=== PATIENT | female | born 1935 | race Caucasian/White ===

== ENCOUNTER 2016-10-18 10:36 | Emergency (ER) | payer OTHER ==
[2016-10-18 11:03] VITALS: TEMP 97.8; BMI 22.3
[2016-10-18] MEDS ORDERED: SODIUM CHLORIDE 500 ML IV STA (16:05)
--- NOTE | 2016-10-18 16:05 | PDOC ---
History of Present Illness - General History Source: Patient Exam Limitations: No Limitations - History of Present Illness Initial Comments: 10/18/16 17:02 The patient is a 80 year old female, with a significant past medical history of HTN, dementia, hypercholesterolemia, rheumatoid arthritis who presents to the emergency department with abdominal pain and diarrhea (nonbloody) for about 1 day. Patient notes a decreased appetite since the onset of her symptoms. The patient denies any black stool and notes the color is a normal. She denies any recent sick contacts. No associated f/c, n/v. Pt does endorse urinary frequency which has been going on for a while. She denies chest pain and shortness of breath. She denies fever, chills, headache and dizziness. She denies nausea, vomit, and constipation. She denies urgency and hematuria. Allergies: NKDA Past surgical history: Hysterectomy (4 years ago.) Social history: Nonsmoker. PCP: <Garrett Blanco - Last Filed: 10/18/16 17:02> <Miki Nickerson - Last Filed: 10/21/16 09:13> - General Chief Complaint: Pain, Acute Stated Complaint: ABD PAIN Time Seen by Provider: 10/18/16 16:05 Past History <Garrett Blanco - Last Filed: 10/18/16 17:02> - Past Medical History Dementia: Yes HTN: Yes Hypercholesterolemia: Yes - Surgical History Neurologic Surgery: Yes (BRAIN SURGERY) - Psycho/Social/Smoking Cessation Hx Anxiety: No Suicidal Ideation: No Smoking History: Never smoked Have you smoked in the past 12 months: No Number of Cigarettes Smoked Daily: 0 Hx Alcohol Use: No Drug/Substance Use Hx: No Substance Use Type: None <Miki Nickerson - Last Filed: 10/21/16 09:13> - Past Medical History Allergies/Adverse Reactions: Allergies Allergy/AdvReac Type Severity Reaction Status Date / Time No Known Drug Allergies Allergy Verified 10/18/16 10:59 shellfish derived AdvReac Mild Itching Verified 10/18/16 10:59 Home Medications: Ambulatory Orders Cilostazol 50 mg PO DAILY 01/04/16 Donepezil HCl 10 mg PO DAILY 01/04/16 Hydrochlorothiazide [Hctz -] 12.5 mg PO DAILY 01/04/16 Timolol 0.5% [Timoptic] 1 drop OU BID 02/05/16 Brimonidine Tartrate [Alphagan P 0.1% -] 1 drop TID 06/20/16 Folic Acid 1 mg PO DAILY 06/20/16 Pravastatin Sodium 10 mg PO DAILY 06/20/16 Escitalopram Oxalate [Lexapro -] 5 mg PO DAILY 10/18/16 Levofloxacin [Levaquin -] 500 mg PO DAILY #7 tablet 10/18/16 Metronidazole [Flagyl] 500 mg PO BID #14 tablet 10/18/16 Naproxen [Naprosyn -] 500 mg PO BID #20 tablet 10/18/16 Review of Systems - Review of Systems Able to Perform ROS?: Yes Comments:: 10/18/16 17:02 May be limited due to dementia CONSTITUTIONAL: No reported: Fever, Chills, Diaphoresis, Generalized Weakness, Malaise, Loss of Appetite HEENT: No reported: Rhinorrhea, Nasal Congestion, Throat Pain, Throat Swelling, Difficulty Swallowing, Mouth Swelling, Ear Pain, Eye Pain, Visual Changes CARDIOVASCULAR: No reported: Chest Pain, Syncope, Palpitations, Irregular Heart Rate, Lightheadedness, Peripheral Edema RESPIRATORY: No reported: Cough, Shortness of Breath, SOB with Exertion, Orthopnea, Wheezing , Stridor, Hemoptysis GASTROINTESTINAL: Reported: abdominal pain, diarrhea. No reported: Constipation, Melena, Hematochezia GENITOURINARY: No reported: Dysuria, Frequency, Urgency, Hesitancy, Flank Pain, Genital Pain MUSCULOSKELETAL: No reported: Myalgia, Arthralgia, Joint Swelling, Back pain, Neck Pain SKIN: No reported: Rash, Itching, Pallor HEMEATOLOGIC/IMMUNOLOGIC: No reported: Easy Bleeding, Easy Bruising, Lymphadenopathy, Frequent infections ENDOCRINE: No reported: Unexplained Weight Gain, Unexplained Weight Loss, Heat Intolerance , Cold Intolerance NEUROLOGIC: No reported: Headache, Focal Weakness, Paresthesias, Vertigo, Lightheadedness, Unsteady Gait, Seizure, Mental Status Changes, Incontinence PSYCHIATRIC: No reported: Anxiety, Depression <Garrett Blanco - Last Filed: 10/18/16 17:02> *Physical Exam - Vital Signs Last Vital Signs Temp Pulse Resp BP Pulse Ox 97.8 F 64 16 117/69 99 10/18/16 11:00 10/18/16 11:00 10/18/16 11:00 10/18/16 11:00 10/18/16 11:00 - Physical Exam Comments: 10/18/16 17:02 GENERAL: The patient is awake, alert, Nontoxic - in no acute distress. HEAD: Normocephalic, atraumatic. EYES: extraocular movements intact, sclera anicteric, conjunctiva clear. ENT: Normal voice, Moist mucous membranes. NECK: Normal range of motion, supple LUNGS: Breath sounds equal, clear to auscultation bilaterally. No wheezes, no rhonchi, no rales. HEART: Regular rate and rhythm, without murmur, rub or gallop. ABDOMEN: Diffuse tenderness to palpation. Hyperactive bowel sounds. Soft. No guarding, no rebound.No CVA tenderness EXTREMITIES: Normal range of motion, no edema. No clubbing or cyanosis. No cords , erythema, or tenderness. NEUROLOGICAL: No facial asymmetry, Normal speech. moving all 4 extremities sontaneously and symmetrically PSYCH: Normal mood, normal affect. SKIN: Warm, Dry, normal turgor. <Garrett Blanco - Last Filed: 10/18/16 17:02> - Vital Signs Last Vital Signs Temp Pulse Resp BP Pulse Ox 97.8 F 64 16 117/69 99 10/18/16 11:00 10/18/16 11:00 10/18/16 11:00 10/18/16 11:00 10/18/16 11:00 <Miki Nickerson - Last Filed: 10/21/16 09:13> Heart Score/ECG Review - ECG Impressions Comment:: 10/18/16 21:21 Twelve-lead EKG was performed and reviewed by me. There is normal sinus rhythm with a rate of 55 The intervals are normal. There is abnormal R wave progression There are no ST or T wave abnormalities. Impression: sinus bradycardia <Miki Nickerson - Last Filed: 10/21/16 09:13> ED Treatment Course - LABORATORY CBC & Chemistry Diagram: 10/18/16 17:10 10/18/16 17:10 <Miki Nickerson - Last Filed: 10/21/16 09:13> Medical Decision Making - Medical Decision Making 10/18/16 16:34 80y F hx of dementia presenting with lower abdominal pain and multiple episodes of nb diarrhea w/o melena, bpr, f/c, n/v, on exam the pt has mild abdominal tenderness with active bowel sounds will obtain labs to r/o metabolic dernagement ct abodomen to r/o pathology gerard lreassess 10/18/16 21:43 pt signed out to dr. aden to fu with ct and reassess the patient A portion of this note was documented by scribe services under my direction. I have reviewed the details of the note, within reason, and agree with the documentation with the following case summary and management plan written by me <Miki Nickerson - Last Filed: 10/21/16 09:13> *DC/Admit/Observation/Transfer - Attestations Scribe Attestion: 10/18/16 17:02 Documentation prepared by Garrett Blanco, acting as medical assistant dermatology for Miki Nickerson MD. <Garrett Blanco - Last Filed: 10/18/16 17:02> <Miki Nickerson - Last Filed: 10/21/16 09:13> Diagnosis at time of Disposition: Abdominal pain, Colitis - Discharge Dispostion Disposition: HOME Condition at time of disposition: Stable - Prescriptions Prescriptions: Metronidazole [Flagyl] 500 mg PO BID #14 tablet Levofloxacin [Levaquin -] 500 mg PO DAILY #7 tablet Naproxen [Naprosyn -] 500 mg PO BID #20 tablet - Referrals Referrals: Mara Louise MD [Primary Care Provider] - - Patient Instructions Printed Discharge Instructions: DI for Colitis Print Language: CAMEROONIAN
[2016-10-18] MEDS ORDERED: morphine CARPU-JECT 2 MG/1 ML DISP.SYRIN IVPUSH ONE (16:36)
[2016-10-18] MEDS ORDERED: morphine CARPU-JECT 2 MG/1 ML DISP.SYRIN ONE (17:19)
[2016-10-18 17:23] LABS: BASOPHIL 0.8 % (0-2.0); EOSINOPHIL 2.7 % (0-4.5); MCH 29.7 pg (25.7-33.7); MCHC 31.9 g/dl (32.0-36.0); MEAN CELL VOLUME 93.2 fl (80-96); MEAN PLT VOLUME 9.1 fl (7.5-11.1); PLATELET COUNT 260 K/MM3 (134-434); WHITE BLOOD COUNT 5.2 K/mm3 (4.0-10.0)
[2016-10-18 17:56] LABS: ALBUMIN 3.8 g/dl (3.4-5.0); ALK PHOS 102 U/L (45-117); ANION GAP 7 (8-16); BILIRUBIN,TOTAL 0.7 mg/dL (0.2-1.0); CALCIUM 9.1 mg/dL (8.5-10.1); CO2 30 mmol/L (21-32); CREATININE 0.6 mg/dL (0.55-1.02); GLUCOSE,RANDOM 83 mg/dL (74-106); MAGNESIUM 2.1 mg/dL (1.8-2.4); SGOT/AST 31 U/L (15-37); SGPT/ALT 26 U/L (12-78); TOT PROT 7.7 g/dl (6.4-8.2)
[2016-10-18 18:45] VITALS: BP 146/70; PULSE 63
[2016-10-18] MEDS ORDERED: metroNIDAZOLE 250 MG TABLET PO ONE (22:51)
[2016-10-18] MEDS ORDERED: LEVOFLOXACIN 500 MG TABLET (FP) PO ONE (22:51)
--- NOTE | 2016-10-18 22:53 | PDOC ---
*Physical Exam - Vital Signs Last Vital Signs Temp Pulse Resp BP Pulse Ox 97.8 F 63 19 146/70 99 10/18/16 11:00 10/18/16 16:15 10/18/16 16:15 10/18/16 16:15 10/18/16 16:15 ED Treatment Course - LABORATORY CBC & Chemistry Diagram: 10/18/16 17:10 10/18/16 17:10 - ADDITIONAL ORDERS Additional order review: Laboratory Results 10/18/16 10/18/16 10/18/16 17:10 17:10 17:10 Sodium 139 Potassium 3.7 Chloride 102 Carbon Dioxide 30 Anion Gap 7 L BUN 9 D Creatinine 0.6 D Creat Clearance w eGFR > 60 Random Glucose 83 Lactic Acid 0.765 Calcium 9.1 Magnesium 2.1 Total Bilirubin 0.7 D AST 31 D ALT 26 D Alkaline Phosphatase 102 Total Protein 7.7 Albumin 3.8 Lipase 81 10/18/16 17:10 RBC 4.31 MCV 93.2 MCHC 31.9 L RDW 13.0 MPV 9.1 D Neutrophils % 65.0 Lymphocytes % 20.7 D Monocytes % 10.8 H Eosinophils % 2.7 Basophils % 0.8 - Medications Given in the ED: ED Medications Discontinued Medications Generic Name Dose Route Start Last Admin Trade Name Freq PRN Reason Stop Dose Admin Sodium Chloride 500 mls @ 500 mls/hr 10/18/16 16:05 10/18/16 17:20 Normal Saline - IV 10/18/16 17:04 500 mls/hr ASDIR STA Administration Morphine Sulfate 2 mg 10/18/16 16:36 10/18/16 17:20 Morphine Injection - IVPUSH 10/18/16 16:37 2 mg ONCE ONE Administration *DC/Admit/Observation/Transfer Diagnosis at time of Disposition: Abdominal pain, Colitis - Discharge Dispostion Disposition: HOME Condition at time of disposition: Stable Admit: No - Referrals Referrals: Mara Louise MD [Primary Care Provider] - - Patient Instructions Printed Discharge Instructions: DI for Colitis Print Language: PALESTINIAN - Post Discharge Activity
[2016-10-18] MEDS ORDERED: metroNIDAZOLE 250 MG TABLET ONE (22:55)
[2016-10-18] MEDS ORDERED: LEVOFLOXACIN 500 MG TABLET (FP) ONE (22:55)
--- NOTE | 2016-10-20 15:15 | EKG ---
Test Reason : Blood Pressure : / mmHG Vent. Rate : 055 BPM Atrial Rate : 055 BPM P-R Int : 186 ms QRS Dur : 086 ms QT Int : 416 ms P-R-T Axes : 022 -04 033 degrees QTc Int : 397 ms SINUS BRADYCARDIA POSSIBLE ANTERIOR INFARCT , AGE UNDETERMINED ABNORMAL ECG WHEN COMPARED WITH ECG OF 20-JUN-2016 21:35, NO SIGNIFICANT CHANGE WAS FOUND Confirmed by BROOKE JEAN MD ([id number]) on 10/20/2016 3:14:51 PM Referred By: Confirmed By:BROOKE JEAN MD
== END 2016-10-18 23:08 | disposition home or self-care (01) ==
LOC: JER 10:36
PROC: 3E033NZ Introduction of Analgesics, Hypnotics, Sedatives into Peripheral Vein, Percutaneous Approach (ICD-10-PCS; principal; 2016-10-18)
PROC: 3E0337Z Introduction of Electrolytic and Water Balance Substance into Peripheral Vein, Percutaneous Approach (ICD-10-PCS; 2016-10-18)
DX: K52.9 Noninfective gastroenteritis and colitis, unspecified (principal); R10.9 Unspecified abdominal pain; I10 Essential (primary) hypertension; F03.90 Unspecified dementia, unspecified severity, without behavioral disturbance, psychotic disturbance, mood disturbance, and anxiety; E78.00 Pure hypercholesterolemia, unspecified; M06.9 Rheumatoid arthritis, unspecified
CPT/HCPCS: 36415; 74177-TC; 80053; 83605; 83690; 83735; 85025; 93005; 93010; 96361; 96374; 99284-25; Q9967

== ENCOUNTER 2016-10-25 12:49 | Emergency (ER) | payer OTHER ==
[2016-10-25 13:03] VITALS: TEMP 98; BMI 22.8
--- NOTE | 2016-10-25 13:49 | PDOC ---
[id number] I have performed the following: I have examined & evaluated the patient, The case was reviewed & discussed with the resident, I agree w/resident's findings & plan - HPI HPI: 10/25/16 16:26 80y F hx of HTN, HLD, Dementia, Fibromyalgia presents with L sided sharp chest pain radiating up to her neck and arm x 3 days- pt states that certain movements make it worse especially turning her head to the left side - no assicated sob, yu, n/v, dipahoresis. on exam pt has diffuse reproducible tenderness to her L shoulder, left anterior chest. suspect msk pain - pt is not a great historian - will also r/o acs with trops and ekg, will ck cxr to r/ o acute pulm disesae labs reviewed - unremarkable trop x 1 neg ekg unchanged from prior cxr rotated but without acute disease will obtain another trop at 6pm. if neg will d/c to fu with PMD and caridology. pt given asa - Physicial Exam PE: 10/29/16 10:06 see above - Medical Decision Making 10/29/16 10:06 see above
[2016-10-25] MEDS ORDERED: ASPIRIN 81 MG CHEWABLE TABLETS PO ONE (13:54)
--- NOTE | 2016-10-25 13:57 | PDOC ---
History of Present Illness <Miki Nickerson - Last Filed: 10/25/16 15:40> - General History Source: Family (Daughter ) Exam Limitations: Dementia, Language Barrier - History of Present Illness Initial Comments: 10/25/16 14:12 Unable to obtain information due to patients clinical condition. All information taken from patients daughter Patient is a 80 year old female with a PMHx of HTN, HLD, Dementia, Fibromyalgia who was recently here on 10/18/16 for colitis and sent home with Wesley and Roddy who presents today to the ED complaining of constant diffuse "deep" chest pain that began three days ago radiating to the back. Patient's daughter reports patient is also having limited range of motion of the neck due to the pain. When asking the patient what alleviates the pain she states Tylenol does. She denies shortness of breath, palpitations, headache She denies dizziness, visual changes, loss of consciousness She denies nausea, vomiting, diarrhea, constipation She denies frequency, urgency, dysuria, hematuria PMHx:HTN, HLD, Dementia, Fibromyalgia PSHx: Brain Surgery MEDS: Refer to ambulatory Allergies: Shellfish Social: Denies alcohol, drugs, or smoking PCP: None <Snow Epstein - Last Filed: 10/25/16 18:39> - General Chief Complaint: Pain Stated Complaint: NECK PAIN Time Seen by Provider: 10/25/16 13:20 Past History <Miki Nickerson - Last Filed: 10/25/16 15:40> - Past Medical History Dementia: Yes HTN: Yes Hypercholesterolemia: Yes Other medical history: RA,FIROMYALGIA - Surgical History Neurologic Surgery: Yes (BRAIN SURGERY) - Psycho/Social/Smoking Cessation Hx Anxiety: No Suicidal Ideation: No Smoking History: Never smoked Have you smoked in the past 12 months: No Number of Cigarettes Smoked Daily: 0 Information on smoking cessation initiated: No Hx Alcohol Use: No Drug/Substance Use Hx: No Substance Use Type: None <Snow Epstein - Last Filed: 10/25/16 18:39> - Past Medical History Allergies/Adverse Reactions: Allergies Allergy/AdvReac Type Severity Reaction Status Date / Time No Known Drug Allergies Allergy Verified 10/25/16 12:59 shellfish derived AdvReac Mild Itching Verified 10/25/16 12:59 Home Medications: Ambulatory Orders Cilostazol 50 mg PO BID 01/04/16 Donepezil HCl 10 mg PO DAILY 01/04/16 Hydrochlorothiazide [Hctz -] 12.5 mg PO DAILY 01/04/16 Timolol 0.5% [Timoptic] 1 drop OU BID 02/05/16 Brimonidine Tartrate [Alphagan P 0.1% -] 1 drop BID 06/20/16 Folic Acid 1 mg PO DAILY 06/20/16 Pravastatin Sodium 10 mg PO DAILY 06/20/16 Escitalopram Oxalate [Lexapro -] 5 mg PO DAILY 10/18/16 Levofloxacin [Levaquin -] 500 mg PO DAILY #7 tablet 10/18/16 Metronidazole [Flagyl] 500 mg PO BID #14 tablet 10/18/16 Naproxen [Naprosyn -] 500 mg PO BID #20 tablet 10/18/16 Gabapentin 300 mg PO HS 10/25/16 Methotrexate Sodium [Methotrexate] 20 mg PO WEEKLY 10/25/16 Review of Systems - Review of Systems Able to Perform ROS?: No Is the patient limited Mosotho proficient: Yes <Snow Epstein - Last Filed: 10/25/16 18:39> *Physical Exam - Vital Signs Last Vital Signs Temp Pulse Resp BP Pulse Ox 98.0 F 76 18 118/62 100 10/25/16 12:59 10/25/16 12:59 10/25/16 12:59 10/25/16 12:59 10/25/16 12:59 <Miki Nickerson - Last Filed: 10/25/16 15:40> - Vital Signs Last Vital Signs Temp Pulse Resp BP Pulse Ox 98.0 F 76 18 118/62 100 10/25/16 12:59 10/25/16 12:59 10/25/16 12:59 10/25/16 12:59 10/25/16 12:59 - Physical Exam General Appearance: Yes: Other HEENT: positive: EOMI, RONALDO, Normal Voice, Pharynx Normal. negative: Tonsillar Exudate, Tonsillar Erythema, Rhinorrhea, Sinus Tenderness, TM Bulging Neck: positive: Decreased range of motion, Tender lateral. negative: Carotid bruit Respiratory/Chest: positive: Chest Tender, Lungs Clear, Normal Breath Sounds. negative: Respiratory Distress, Accessory Muscle Use Cardiovascular: positive: Regular Rhythm, Regular Rate Gastrointestinal/Abdominal: positive: Normal Bowel Sounds, Soft. negative: Decreased BS, Guarding, Rebound Extremity: positive: Other (limited range of motion of left arm. ). negative: Delayed Capillary Refill, Pedal Edema, Swelling, Calf Tenderness, Inflammation Integumentary: positive: Normal Color, Dry, Warm Neurologic: positive: Alert, Normal Mood/Affect (apathetic ), Respond to painful stimul, Responsive. negative: Facial Droop, Numbness, Sensory Deficit <Snow Epstein - Last Filed: 10/25/16 18:39> Heart Score/ECG Review - ECG Impressions Comment:: 10/25/16 15:40 Twelve-lead EKG was performed and reviewed by me. There is normal sinus rhythm with a normal rate. Rate of 72 There is abnormal R wave progression There are no ST or T wave abnormalities. No significant changes when compared with EKG dated 10/18/2016 <Miki Nickerson - Last Filed: 10/25/16 15:40> ED Treatment Course - LABORATORY CBC & Chemistry Diagram: 10/25/16 14:20 10/25/16 14:20 - ADDITIONAL ORDERS Additional order review: Laboratory Results 10/25/16 14:20 Sodium 136 Potassium 4.6 D Chloride 100 Carbon Dioxide 31 Anion Gap 5 L BUN 10 Creatinine 0.7 Creat Clearance w eGFR > 60 Random Glucose 110 H D Calcium 9.4 Total Bilirubin 0.6 AST 29 ALT 19 D Alkaline Phosphatase 90 Creatine Kinase 111 Troponin I < 0.02 Total Protein 7.5 Albumin 3.6 10/25/16 14:20 RBC 4.05 MCV 92.9 MCHC 32.9 RDW 12.5 MPV 9.4 Neutrophils % 77.8 Lymphocytes % 13.1 D Monocytes % 8.0 Eosinophils % 0.4 D Basophils % 0.7 - RADIOLOGY Radiology Studies Ordered: Category Date Time Status CHEST X-RAY PORTABLE* [RAD] Stat Radiology 10/25/16 13:54 Taken - Medications Given in the ED: ED Medications Discontinued Medications Generic Name Dose Route Start Last Admin Trade Name Freq PRN Reason Stop Dose Admin Aspirin 162 mg 10/25/16 13:54 10/25/16 14:36 Asa - PO 10/25/16 13:55 162 mg ONCE ONE Administration <Miki Nickerson - Last Filed: 10/25/16 15:40> - LABORATORY CBC & Chemistry Diagram: 10/25/16 14:20 10/25/16 14:20 <Snow Epstein - Last Filed: 10/25/16 18:39> Medical Decision Making - Medical Decision Making 10/25/16 14:06 Patient is a 80 year old female with a PMHx of HTN, HLD, dementia, rheumatoid arthritis and Fibromyalgia who presented to the ED complaining of diffuse chest pain radiating to the left arm associated with neck pain for the last three days. Differential Diagnosis include but not limited to ACS, GERD, PE, Pneumonia, Acute Pericarditis, Injury or trauma. ED Course and Treatment: -CBC -CMP -Cardiac Profile which includes troponin -EKG -Chest X-ray 10/25/16 16:10 -Labs wnl -Troponin negative. Will repeat in 4 hours -Chest x-ray negative for acute pathology 10/25/16 18:36 -Second set of troponin negative -Patient was able to eat soup and drink some juice -Patient re-examined and complains of no pain or tenderness. Denies chest pain or shortness of breath -Patient may be discharged and advised to follow up with PCP <Snow Epstein - Last Filed: 10/25/16 18:39> *DC/Admit/Observation/Transfer <Miki Nickerson - Last Filed: 10/25/16 15:40> - Discharge Dispostion Admit: No <Snow Epstein - Last Filed: 10/25/16 18:39> Diagnosis at time of Disposition: Fibromyalgia affecting multiple sites - Discharge Dispostion Disposition: HOME Condition at time of disposition: Stable - Patient Instructions Additional Instructions: -May resume regular diet -If you experience any chest pain, shortness of breath , or fever >103, return to the ED -Please follow up with PCP within a week Print Language: CHADIAN
[2016-10-25] MEDS ORDERED: ASPIRIN 81 MG CHEWABLE TABLETS ONE (14:32)
[2016-10-25 14:36] LABS: BASOPHIL 0.7 % (0-2.0); EOSINOPHIL 0.4 % (0-4.5); MCH 30.6 pg (25.7-33.7); MCHC 32.9 g/dl (32.0-36.0); MEAN CELL VOLUME 92.9 fl (80-96); MEAN PLT VOLUME 9.4 fl (7.5-11.1); NEUTROPHILS 77.8 % (42.8-82.8); PLATELET COUNT 252 K/MM3 (134-434); RDW 12.5 % (11.6-15.6); WHITE BLOOD COUNT 7.2 K/mm3 (4.0-10.0)
[2016-10-25 14:55] LABS: ALBUMIN 3.6 g/dl (3.4-5.0); ANION GAP 5 (8-16); BILIRUBIN,TOTAL 0.6 mg/dL (0.2-1.0); CALCIUM 9.4 mg/dL (8.5-10.1); CO2 31 mmol/L (21-32); CREATININE 0.7 mg/dL (0.55-1.02); GLUCOSE,RANDOM 110 mg/dL (74-106); SGPT/ALT 19 U/L (12-78); TOT PROT 7.5 g/dl (6.4-8.2)
[2016-10-25 14:58] LABS: ALK PHOS 90 U/L (45-117)
[2016-10-25 15:03] LABS: SGOT/AST 29 U/L (15-37)
[2016-10-25 15:05] LABS: TROPONIN I < 0.02 ng/ml (0.00-0.05)
[2016-10-25] MEDS ORDERED: ACETAMINOPHEN 325 MG TABLET (FP) PO ONE (16:26)
[2016-10-25] MEDS ORDERED: ACETAMINOPHEN 325 MG TABLET (FP) ONE (17:09)
--- NOTE | 2016-10-25 18:20 | EKG ---
Test Reason : Blood Pressure : / mmHG Vent. Rate : 072 BPM Atrial Rate : 072 BPM P-R Int : 168 ms QRS Dur : 078 ms QT Int : 406 ms P-R-T Axes : 026 -10 023 degrees QTc Int : 444 ms NORMAL SINUS RHYTHM MINIMAL VOLTAGE CRITERIA FOR LVH, MAY BE NORMAL VARIANT ANTERIOR INFARCT (CITED ON OR BEFORE 18-OCT-2016) ABNORMAL ECG WHEN COMPARED WITH ECG OF 18-OCT-2016 16:49, NO SIGNIFICANT CHANGE WAS FOUND Confirmed by HAYDEN ARRIAGA MD ([id number]) on 10/25/2016 6:20:10 PM Referred By: Confirmed By:HAYDEN ARRIAGA MD
[2016-10-25 18:54] VITALS: BP 123/67; PULSE 96
== END 2016-10-25 18:55 | disposition home or self-care (01) ==
LOC: JER 12:49
DX: M79.7 Fibromyalgia (principal); I10 Essential (primary) hypertension; E78.00 Pure hypercholesterolemia, unspecified; F03.90 Unspecified dementia, unspecified severity, without behavioral disturbance, psychotic disturbance, mood disturbance, and anxiety
CPT/HCPCS: 36415; 71010-TC; 80053; 82550; 84484; 85025; 93005; 93010; 99281-25

== ENCOUNTER 2016-11-09 13:03 | Observation (INO) | payer OTHER ==
--- NOTE | 2016-11-09 14:12 | PDOC ---
History of Present Illness - General Chief Complaint: Lightheaded Stated Complaint: DIZZINESS Time Seen by Provider: 11/09/16 13:13 History Source: Patient, Family - History of Present Illness Initial Comments: 11/09/16 14:12 Ms. Ramirez is a 80 y/o female with a PMH of HTN, Dementia, and TIA, presenting to the ED today complaining of altered mental status and an unwitnessed fall. Daughter is giving the present history. According to her daughter, Ms. Ramirez was last known normal today at 10:30. At approximately 11:00, Ms. Ramirez called out for help after falling. She was found on the floor. She had no recollection of the incident and was diaphoretic. She had mild aphasia that quickly resolved. There were no other focal deficits at that time. She refused to eat this morning. Her last meal was last night around 18:00. Now, pt. is AAOx3 and her speech is coherent. She still has no recollection of the fall. Denies head, neck, back pain. Denies constitutional symptoms, chest pain, palpitations, SOB, N/V/D. tPA Exclusion Checklist 0-3hr - Relative Exclusion Criteria 0-3h Rapid improvement: Yes NIH Stroke Scale - Last Known Well Date/Time & Onset Date Last Known Well: 11/09/16 Time Last Known Well: 10:30 - Initial Evaluation Level of consciousness: Alert Ask patient the month and their age: Answers both correctly Ask patient to open & close eyes; make fist and let go: Obeys both correctly Best gaze (horizontal eye movement): Normal Visual field testing: No visual field loss Facial paresis (Show teeth/raise eyebrows/close eyes tight): Normal symmetrical movement Motor Function: Left Arm: Normal Motor Function: Right Arm: Normal (extends arm 90 (or 45) degrees for 10 seconds without drift Motor Function: Left Leg: Normal (extends leg 30 degrees for 5 seconds without drift) Motor Function: Right Leg: Normal (extends leg 30 degrees for 5 seconds without drift) Limb Ataxia: No ataxia Sensory(Use pinprick test arms,legs,trunk,face/side to side): Normal Best language (Describe picture, name items, read sentences): No Aphasia Dysarthria (read several words): Normal articulation Extinction and Inattention: No abnormality - Total Score NIH Stroke Scale Score: 0 Past History - Past Medical History Allergies/Adverse Reactions: Allergies Allergy/AdvReac Type Severity Reaction Status Date / Time No Known Drug Allergies Allergy Verified 10/25/16 12:59 shellfish derived AdvReac Mild Itching Verified 10/25/16 12:59 Home Medications: Ambulatory Orders Cilostazol 50 mg PO BID 01/04/16 Donepezil HCl 10 mg PO DAILY 01/04/16 Hydrochlorothiazide [Hctz -] 12.5 mg PO DAILY 01/04/16 Timolol 0.5% [Timoptic] 1 drop OU BID 02/05/16 Folic Acid 1 mg PO DAILY 06/20/16 Pravastatin Sodium 10 mg PO DAILY 06/20/16 Escitalopram Oxalate [Lexapro -] 5 mg PO DAILY 10/18/16 Gabapentin 300 mg PO HS 10/25/16 Methotrexate Sodium [Methotrexate] 20 mg PO WEEKLY 10/25/16 Dementia: Yes HTN: Yes Hypercholesterolemia: Yes - Surgical History Neurologic Surgery: Yes (BRAIN SURGERY) - Psycho/Social/Smoking Cessation Hx Anxiety: No Suicidal Ideation: No Smoking History: Never smoked Have you smoked in the past 12 months: No Number of Cigarettes Smoked Daily: 0 Hx Alcohol Use: No Drug/Substance Use Hx: No Substance Use Type: None *Physical Exam - Vital Signs Last Vital Signs Temp Pulse Resp BP Pulse Ox 97.3 F L 71 20 140/73 100 11/09/16 13:16 11/09/16 13:16 11/09/16 13:16 11/09/16 13:16 11/09/16 13:16 - Physical Exam Comments: 11/09/16 14:57 GENERAL: The patient is awake, alert, and fully oriented, in no acute distress sitting in the hospital bed. Speech is clear and coherent at this time. HEAD: Normal with no signs of trauma. ENT: Pupils equal, round and reactive to light, extraocular movements intact, sclera anicteric, conjunctiva clear. Neck supple. LUNGS: Clear to auscultation bilaterally. Normal excursion. No respiratory distress or use of accessory muscles. CV: RRR, S1/S2, no MRG. Cap refill < 2 sec. ABDOMEN: Soft, non-distended, non-tender. EXTREMITIES: Normal range of motion, no edema. NEUROLOGICAL: AAOx3 Speech is clear and coherent. Able to follow commands. Strength is equal B/L 5/5 for upper and lower extremities. Sensation grossly intact B/L. at this time. Normal gait. CN II-XII grossly intact. PSYCH: Normal mood, normal affect. SKIN: Warm, dry, normal turgor, no rashes or lesions noted. ED Treatment Course - LABORATORY CBC & Chemistry Diagram: 11/09/16 15:00 11/09/16 13:54 Medical Decision Making - Medical Decision Making 11/09/16 15:23 Ms. Ramirez is a 80 y/o female with PMH significant for HTN, Dementia, TIA, presenting to the ED today after unwitnessed fall, and transient altered mental status. She currently has no recollection of the event and is back to her baseline, AAOx3. Given her presenting symptoms there is a broad differential including ACS/arrhythmia, TIA given history, infection, hypoglycemia, and mechanical trip and fall. Pt. is not a candidate for tPA at this time as her altered mental status sypmtos have quickly resolved. EKG and Cardiac labs for r/o ACS/arrhythmia CBC, UA, CMP for r/o infection, hypoglycemia Head CT for TIA/Stroke and possible trauma Will re-evaluate. 11/09/16 16:25 EKG shows a sinus rhythm rate of 67 with no acute ischemic changes. Head CT shows no acute ischemic changes or evidence of bleeding. Head CT unchanged from previous CT. At this time, there is no evidence of infection, white count within normal limits. Pt. is stable in the ED at this time. Pt. to be admitted to observation with tele. *DC/Admit/Observation/Transfer Diagnosis at time of Disposition: Transient alteration of awareness - Discharge Dispostion Condition at time of disposition: Fair Admit: Yes - Referrals Referrals: Mara Louise MD [Primary Care Provider] -
[2016-11-09 14:37] LABS: ALBUMIN 3.7 g/dl (3.4-5.0); ANION GAP 10 (8-16); CALCIUM 9.2 mg/dL (8.5-10.1); CO2 30 mmol/L (21-32); GLUCOSE,RANDOM 110 mg/dL (74-106)
--- NOTE | 2016-11-09 14:38 | PDOC ---
*Physical Exam - Vital Signs Last Vital Signs Temp Pulse Resp BP Pulse Ox 97.3 F L 71 20 140/73 100 11/09/16 13:16 11/09/16 13:16 11/09/16 13:16 11/09/16 13:16 11/09/16 13:16 ED Treatment Course - LABORATORY CBC & Chemistry Diagram: 11/09/16 13:54 11/09/16 13:54 - ADDITIONAL ORDERS Additional order review: Laboratory Results 11/09/16 13:54 INR Cancelled 11/09/16 13:54 RBC Cancelled MCV Cancelled MCHC Cancelled RDW Cancelled MPV Cancelled Neutrophils % Cancelled Lymphocytes % Cancelled Monocytes % Cancelled Eosinophils % Cancelled Basophils % Cancelled Medical Decision Making - Medical Decision Making 11/09/16 14:34 Patient seen and evaluated with the nurse practitioner. I agree with the overall evaluation, assessment, and management with the following summary of visit: 80-year-old female with history of TIA and cardiac disease presents after she was found on floor with altered mental status. Patient was last seen at her baseline at 10:30 AM, around 11 AM she called for her daughter and son-in-law who found her on the floor confused, pale, diaphoretic, and with slurred speech. No other focal motor deficit, the patient remained in that state for about 5 minutes while EMS was activated, then returned to baseline and is now at her baseline. She has no complaints, but does have dementia and does not recall the events. Vitals as noted. Exam as noted, focal neurological deficits No cardio pulmonary abnormalities 80-year-old female with transient altered mental status, question TIA, question arrhythmia/ACS with syncope, question mechanical fall. Rule out other metabolic or infectious process. Differential is broad. Labs, urinalysis EKG, chest x-ray CT head Does not meet criteria for code [place] given resolution of symptoms, will require admission *DC/Admit/Observation/Transfer Diagnosis at time of Disposition: Transient alteration of awareness - Discharge Dispostion Condition at time of disposition: Fair
[2016-11-09 14:43] LABS: ALK PHOS 84 U/L (45-117); BILIRUBIN,TOTAL 0.6 mg/dL (0.2-1.0); CREATININE 0.7 mg/dL (0.55-1.02); SGOT/AST 12 U/L (15-37); SGPT/ALT 13 U/L (12-78); TOT PROT 7.6 g/dl (6.4-8.2); TROPONIN I < 0.02 ng/ml (0.00-0.05)
[2016-11-09 15:28] LABS: BASOPHIL 0.5 % (0-2.0); EOSINOPHIL 0.7 % (0-4.5); MCH 30.3 pg (25.7-33.7); MCHC 32.5 g/dl (32.0-36.0); MEAN CELL VOLUME 93.3 fl (80-96); MEAN PLT VOLUME 9.5 fl (7.5-11.1); NEUTROPHILS 80.1 % (42.8-82.8); PLATELET COUNT 276 K/MM3 (134-434); RDW 12.7 % (11.6-15.6); WHITE BLOOD COUNT 9.4 K/mm3 (4.0-10.0)
--- NOTE | 2016-11-09 15:36 | EKG ---
Test Reason : Blood Pressure : / mmHG Vent. Rate : 067 BPM Atrial Rate : 067 BPM P-R Int : 196 ms QRS Dur : 088 ms QT Int : 414 ms P-R-T Axes : 020 002 021 degrees QTc Int : 437 ms NORMAL SINUS RHYTHM POSSIBLE ANTERIOR INFARCT (CITED ON OR BEFORE 18-OCT-2016) ABNORMAL ECG WHEN COMPARED WITH ECG OF 25-OCT-2016 13:10, NONSPECIFIC T WAVE ABNORMALITY NOW EVIDENT IN ANTERIOR LEADS Confirmed by JAIRO ECHAVARRIA MD ([id number]) on 11/09/2016 3:35:56 PM Referred By: Confirmed By:JAIRO ECHAVARRIA MD
[2016-11-09 15:57] LABS: INR 1.11 (0.82-1.09); PROTHROMBIN TIME (PATIENT) 12.2 SEC (9.98-11.88)
--- NOTE | 2016-11-09 17:15 | HP ---
PCP: Mara Louise CHIEF COMPLAINT: Confusion HISTORY OF PRESENT ILLNESS: This is a 80-year-old woman who was brought in to the ER today after an episode of confusion. She had fasting labs drawn this morning. Upon returning home, she took her medications but did not eat. Around 11 am, her daughter heard her call for help. She found the patient on the floor. She was cool, clammy and pale. She appeared to be confused and was drooling. She could not say what was wrong. Her daughter assisted her up and she then looked as if she were going to pass out. She does not recall the event. She is currently at her baseline. She denies headache, chest pain, palpitations, shortness of breath, abdominal pain, nausea, vomiting, diarrhea, dysuria, hematuria, urinary frequency, fever, chills. Her daughter noted her stool was black today. PAST MEDICAL HISTORY HTN Hyperlipidemia TIA PAD Dementia Osteoarthritis Glaucoma PAST SURGICAL HISTORY Angioplasty of leg Allergies No Known Drug Allergies Allergy (Verified 10/25/16 12:59) shellfish derived Adverse Reaction (Mild, Verified 10/25/16 12:59) Itching HOME MEDICATIONS 3 Medication Instructions Recorded Cilostazol 50 mg PO BID 01/04/16 Donepezil HCl 10 mg PO DAILY 01/04/16 Hydrochlorothiazide [Hctz -] 12.5 mg PO DAILY 01/04/16 Timolol 0.5% [Timoptic] 1 drop OU BID 02/05/16 Folic Acid 1 mg PO DAILY 06/20/16 Pravastatin Sodium 10 mg PO DAILY 06/20/16 Escitalopram Oxalate [Lexapro -] 5 mg PO DAILY 10/18/16 Gabapentin 300 mg PO HS 10/25/16 Methotrexate Sodium [Methotrexate] 20 mg PO WEEKLY 10/25/16 Social History: Smoking: Never smoked Alcohol: None Drugs: None Recent Travel: No Family History Father: prostate cancer, dementia Mother: depression (+) CAD, 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 Absent: fever, chills, generalized weakness, malaise, loss of appetite, weight change HEENT: Absent: rhinorrhea, nasal congestion, throat pain, throat swelling, difficulty swallowing, mouth swelling, ear pain, eye pain, visual changes CARDIOVASCULAR: Absent: chest pain, syncope, palpitations, lightheadedness, peripheral edema RESPIRATORY: Absent: cough, shortness of breath, dyspnea with exertion, orthopnea, wheezing, stridor, hemoptysis GASTROINTESTINAL: Present: black stool. Absent: abdominal pain, abdominal distension, nausea, vomiting, diarrhea, constipation, hematochezia GENITOURINARY: Absent: dysuria, frequency, urgency, hesitancy, hematuria, flank pain MUSCULOSKELETAL: Present: arthralgias. Absent: myalgia, joint swelling, back pain, neck pain SKIN: Absent: rash, itching, pallor HEMATOLOGIC/IMMUNOLOGIC: Absent: easy bleeding, easy bruising, lymphadenopathy, frequent infections ENDOCRINE: Absent: unexplained weight gain, unexplained weight loss, heat intolerance, cold intolerance NEUROLOGIC: Absent: headache, focal weakness, paresthesias, dizziness, unsteady gait, seizure, mental status changes, bladder or bowel incontinence PSYCHIATRIC: Absent: anxiety, depression, suicidal or homicidal ideation, hallucinations. PHYSICAL EXAMINATION Vital Signs Period Temp Pulse Resp BP Sys/Singh Pulse Ox Last 24 Hr 97.3 F 70-71 20-20 105-140/60-73 98-100 GENERAL: Awake, alert, and fully oriented, in no acute distress. HEAD: Normal with no signs of trauma. EYES: Pupils equal, round and reactive to light, extraocular movements intact, sclera anicteric, conjunctiva clear. No lid lag. EARS, NOSE, THROAT: Ears normal, nares patent, oropharynx clear without exudates. Moist mucous membranes. NECK: Normal range of motion, supple without lymphadenopathy, JVD, or masses. LUNGS: Breath sounds equal, clear to auscultation bilaterally. No wheezes, and no crackles. No accessory muscle use. HEART: Regular rate and rhythm, normal S1 and S2 without murmur, rub or gallop. ABDOMEN: Soft, nontender, not distended, normoactive bowel sounds, no guarding, no rebound, no masses. No hepatomegaly or splenomegaly. MUSCULOSKELETAL: Normal range of motion at all joints. No bony deformities or tenderness. No CVA tenderness. UPPER EXTREMITIES: 2+ pulses, warm, well-perfused. No cyanosis. No clubbing. Cap refill <2 seconds. No peripheral edema. LOWER EXTREMITIES: 2+ pulses, warm, well-perfused. No calf tenderness. No peripheral edema. NEUROLOGICAL: Cranial nerves II-XII intact. Normal speech. Normal gait. PSYCHIATRIC: Cooperative. Good eye contact. Appropriate mood and affect. SKIN: Warm, dry, normal turgor, no rashes or lesions noted. Laboratory Results - last 24 hr 11/09/16 11/09/16 11/09/16 13:54 13:54 13:54 WBC Cancelled Corrected WBC (auto) Cancelled RBC Cancelled Hgb Cancelled Hct Cancelled MCV Cancelled MCHC Cancelled RDW Cancelled Plt Count Cancelled MPV Cancelled Neutrophils % Cancelled Lymphocytes % Cancelled Monocytes % Cancelled Eosinophils % Cancelled Basophils % Cancelled Differential Comment Cancelled Smudge Cells Cancelled Platelet Estimate Cancelled Platelet Comment Cancelled RBC Morphology Cancelled INR Cancelled Sodium 140 Potassium 4.0 Chloride 100 Carbon Dioxide 30 Anion Gap 10 BUN 16 D Creatinine 0.7 Creat Clearance w eGFR > 60 Random Glucose 110 H Calcium 9.2 Total Bilirubin 0.6 AST 12 L D ALT 13 D Alkaline Phosphatase 84 Creatine Kinase 65 Troponin I < 0.02 Total Protein 7.6 Albumin 3.7 11/09/16 11/09/16 15:00 15:00 WBC 9.4 D Corrected WBC (auto) RBC 4.17 Hgb 12.6 Hct 38.9 MCV 93.3 MCHC 32.5 RDW 12.7 Plt Count 276 MPV 9.5 Neutrophils % 80.1 Lymphocytes % 12.0 Monocytes % 6.7 Eosinophils % 0.7 Basophils % 0.5 Differential Comment Smudge Cells Platelet Estimate Platelet Comment RBC Morphology INR 1.11 Sodium Potassium Chloride Carbon Dioxide Anion Gap BUN Creatinine Creat Clearance w eGFR Random Glucose Calcium Total Bilirubin AST ALT Alkaline Phosphatase Creatine Kinase Troponin I Total Protein Albumin Chest x-ray: No acute process. Head CT: Moderate atrophy, ventricular dilatation, mild chronic microvascular ischemic changes. EKG: Sinus rhythm, rate 67. ASSESSMENT/PLAN: This is a 80-year-old woman with a history of HTN, hyperlipidemia, TIA, PAD, dementia, osteoarthritis and glaucoma who presented to the ER after being found on the floor confused, diaphoretic. She is being placed in observation now for further evaluation of an emergent condition. 1. Syncope secondary to dehydration - Observe on telemetry - IV fluid - Hold HCTZ - Serial troponins - Echocardiogram 2. Black stool - Check stool for occult blood - Hemoglobin is currently stable - Monitor hemoglobin 3. Hypertension - Hold HCTZ secondary to dehydration 4. Hyperlipidemia - Continue Pravachol 5. PAD, history of lower extremity angioplasty - Continue Pletal 6. Dementia - Continue Aricept 7. History of TIA 8. Glaucoma - Continue Timoptic Problem List - Problem (1) History of myocardial infarction Code(s): I25.2 - OLD MYOCARDIAL INFARCTION (2) Osteoarthritis Code(s): M19.90 - UNSPECIFIED OSTEOARTHRITIS, UNSPECIFIED SITE (3) CAD (coronary artery disease) Code(s): I25.10 - ATHSCL HEART DISEASE OF [place] CORONARY ARTERY W/O ANG PCTRS (4) Syncope Code(s): R55 - SYNCOPE AND COLLAPSE Visit type - Emergency Visit Emergency Visit: Yes ED Registration Date: 11/09/16 Care time: The patient presented to the Emergency Department on the above date and was hospitalized for further evaluation of their emergent condition. - New Patient This patient is new to me today: Yes Date on this admission: 11/09/16 - Critical Care Critical Care patient: No
[2016-11-09] MEDS ORDERED: ACETAMINOPHEN 325 MG TABLET (FP) PO PRN (17:17)
[2016-11-09] MEDS ORDERED: ONDANSETRON 4 MG/2 ML VIAL IVPB PRN (17:17)
[2016-11-09] MEDS: SODIUM CHLORIDE 1,000 ML IV SCH ×2 (18:52→20:31)
[2016-11-09] MEDS ORDERED: GABAPENTIN 300 MG CAPSULE (FP) PO SCH (22:00)
[2016-11-09] MEDS: CILOSTAZOL 50 MG TABLET (FP) PO SCH (22:52)
[2016-11-09] MEDS: TIMOLOL 0.5% OPHTHALMIC SOL 5 ML BOTTLE OU SCH (22:52)
[2016-11-09] MEDS ORDERED: PT OWN MED DRAWER 7, Y5N ONE (22:58)
[2016-11-09 23:21] VITALS: BMI 22.4
[2016-11-10 06:59] LABS: MCH 30.7 pg (25.7-33.7); MCHC 33.1 g/dl (32.0-36.0); MEAN CELL VOLUME 92.8 fl (80-96); MEAN PLT VOLUME 9.3 fl (7.5-11.1); PLATELET COUNT 280 K/MM3 (134-434); RDW 12.5 % (11.6-15.6); WHITE BLOOD COUNT 4.4 K/mm3 (4.0-10.0)
[2016-11-10 07:40] LABS: CALCIUM 8.7 mg/dL (8.5-10.1)
[2016-11-10 07:56] LABS: CREATININE 0.6 mg/dL (0.55-1.02); TROPONIN I 0.02 ng/ml (0.00-0.05)
[2016-11-10] MEDS ORDERED: PT OWN MED DRAWER 7, Y5N ONE (09:20)
[2016-11-10] MEDS: CILOSTAZOL 50 MG TABLET (FP) PO SCH (09:39)
[2016-11-10] MEDS: TIMOLOL 0.5% OPHTHALMIC SOL 5 ML BOTTLE OU SCH (09:41)
[2016-11-10] MEDS ORDERED: PATIENT'S OWN MEDICATION (NON-FORMULARY) (Pravastatin Sodium [Pravastatin Sodium] 10 MG) PO SCH (10:00)
[2016-11-10] MEDS ORDERED: FOLIC ACID 1 MG TABLET (FP) PO SCH (10:00)
[2016-11-10] MEDS ORDERED: ESCITALOPRAM OXALATE 10 MG TABLET (FP) PO SCH (10:00)
[2016-11-10] MEDS ORDERED: DONEPEZIL HCL 10 MG TABLET (FP) PO SCH (10:00)
[2016-11-10 10:39] LABS: URINE APPEARANCE CLEAR; URINE BILIRUBIN NEGATIVE (NEGATIVE); URINE BLOOD NEGATIVE (NEGATIVE); URINE COLOR STRAW; URINE GLUCOSE (UA) NEGATIVE (NEGATIVE); URINE KETONE NEGATIVE (NEGATIVE); URINE LEUK ESTERASE NEGATIVE (NEGATIVE); URINE NITRITE NEGATIVE (NEGATIVE); URINE PROTEIN NEGATIVE (NEGATIVE); URINE UROBILINOGEN NEGATIVE E.U./dl (0.2-1.0)
[2016-11-10 14:52] VITALS: BP 108/57; PULSE 76; TEMP 98.2
--- NOTE | 2016-11-10 16:24 | DS ---
Physical Examination Vital Signs: Vital Signs Temperature 98.2 F 11/10/16 14:05 Pulse Rate 76 11/10/16 14:05 Respiratory Rate 16 11/10/16 14:05 Blood Pressure 108/57 11/10/16 14:05 O2 Sat by Pulse Oximetry (%) 97 11/10/16 09:00 Labs: CBC, BMP 11/10/16 05:35 11/10/16 05:35 Discharge Summary Reason For Visit: TRANSIENT ALTERATION OF AWARENESS Current Active Problems Syncope (Acute) Transient alteration of awareness (Acute) Dementia (Chronic) Fibromyalgia affecting multiple sites (Chronic) HTN (hypertension) (Chronic) Hyperlipidemia (Chronic) Osteoarthritis (Chronic) PVD (peripheral vascular disease) (Chronic) Condition: Good - Instructions Diet, Activity, Other Instructions: resume previous diet and activity Referrals: Mara Louise MD [Primary Care Provider] - Disposition: HOME - Home Medications Comprehensive Discharge Medication List: Ambulatory Orders Cilostazol 50 mg PO BID 01/04/16 Donepezil HCl 10 mg PO DAILY 01/04/16 Timolol 0.5% [Timoptic] 1 drop OU BID 02/05/16 Folic Acid 1 mg PO DAILY 06/20/16 Pravastatin Sodium 10 mg PO DAILY 06/20/16 Escitalopram Oxalate [Lexapro -] 5 mg PO DAILY 10/18/16 Gabapentin 300 mg PO HS 10/25/16 Methotrexate Sodium [Methotrexate] 20 mg PO WEEKLY 10/25/16
== END 2016-11-10 17:15 | disposition home or self-care (01) ==
LOC: JER 13:03 → JERBED 17:13 → J4S 20:11
PROVIDERS: ADMIT Internal Medicine; ATTEND Internal Medicine
DX: R41.82 Altered mental status, unspecified (principal); I10 Essential (primary) hypertension; E78.5 Hyperlipidemia, unspecified; I73.9 Peripheral vascular disease, unspecified; M19.90 Unspecified osteoarthritis, unspecified site; F03.90 Unspecified dementia, unspecified severity, without behavioral disturbance, psychotic disturbance, mood disturbance, and anxiety; M79.7 Fibromyalgia; R55 Syncope and collapse; H40.9 Unspecified glaucoma; E86.0 Dehydration; Z86.73 Personal history of transient ischemic attack (TIA), and cerebral infarction without residual deficits
CPT/HCPCS: 36415; 70450-TC; 71020-TC; 80048; 80053; 81003; 82550; 84484; 85025; 85027; 85610; 93005; 93010; 93306-TC; 99285-25; G0378

== ENCOUNTER 2017-06-26 22:34 | Observation (INO) | payer OTHER ==
[2017-06-26] MEDS ORDERED: ATROPINE SULFATE 1 MG/10 ML DISP.SYRIN ONE (23:02)
--- NOTE | 2017-06-26 23:05 | PDOC ---
History of Present Illness - General History Source: Family Exam Limitations: Dementia <Tierra Parnell - Last Filed: 06/27/17 02:06> <Margaret Jay - Last Filed: 06/27/17 03:19> - General Chief Complaint: Syncope/Near Syncope Stated Complaint: ATLER MENTAL STATUS Time Seen by Provider: 06/26/17 22:48 - History of Present Illness Initial Comments: 06/26/17 23:10 The patient is an 81 year old female, with significant past medical history of dementia, HTN, HLD, and TIA, who presents to the emergency room via ambulance s/ p unwitnessed syncopal episode around 10:30pm. The daughter heard a thump from downstairs, when she ran upstairs she found the patient passed out and lying on the floor. She called the ambulance and the planning assistant found her to be hypotensive and bradycardic at the scene requiring .5 of atropine and 500cc bolus of fluid. The patients daughter notes the patient took 12.5mg of seroquel for the first time (new medication) at 7:30pm tonight because she was agitated (as instructed by her neurologist). The patient is not complaining of any pain at this time, but HPI is limited secondary to dementia. Allergies: NKDA, shellfish PCP: Dr. Louise ([facility]) Past History <Tierra Parnell - Last Filed: 06/27/17 02:06> - Past Medical History CVA: Yes (TIA) Dementia: Yes HTN: Yes Hypercholesterolemia: Yes Other medical history: Arthritis - Surgical History Neurologic Surgery: Yes (BRAIN SURGERY r/t CSF leak) - Psycho/Social/Smoking Cessation Hx Anxiety: No Suicidal Ideation: No Smoking History: Never smoked Have you smoked in the past 12 months: No Number of Cigarettes Smoked Daily: 0 Information on smoking cessation initiated: No Hx Alcohol Use: No Drug/Substance Use Hx: No Substance Use Type: None Hx Substance Use Treatment: No <Margaret Jay - Last Filed: 06/27/17 03:19> - Past Medical History Allergies/Adverse Reactions: Allergies Allergy/AdvReac Type Severity Reaction Status Date / Time No Known Drug Allergies Allergy Verified 06/26/17 22:50 shellfish derived AdvReac Mild Itching Verified 06/26/17 22:50 Home Medications: Ambulatory Orders Cilostazol 50 mg PO BID 01/04/16 Donepezil HCl 10 mg PO DAILY 01/04/16 Timolol 0.5% [Timoptic] 1 drop OU BID 02/05/16 Folic Acid 1 mg PO DAILY 06/20/16 Pravastatin Sodium 10 mg PO DAILY 06/20/16 Escitalopram Oxalate [Lexapro -] 5 mg PO DAILY 10/18/16 Gabapentin 300 mg PO HS 10/25/16 Methotrexate Sodium [Methotrexate] 20 mg PO WEEKLY 10/25/16 Review of Systems - Review of Systems Able to Perform ROS?: No (dementia) <Marisa Parnellica - Last Filed: 06/27/17 02:06> *Physical Exam <NasreeneduinTierra - Last Filed: 06/27/17 02:06> <Margaret Jay - Last Filed: 06/27/17 03:19> - Vital Signs Last Vital Signs Temp Pulse Resp BP Pulse Ox 97.5 F L 65 20 128/69 100 06/26/17 22:51 06/26/17 22:51 06/26/17 22:51 06/26/17 22:51 06/26/17 22:51 - Physical Exam Comments: 06/26/17 23:11 GENERAL: Well developed, well nourished. Awake and alert. No acute distress. HEENT: +3cm occipital hematoma, 1 cm right parietal hematoma. PERRLA, EOMI. No conjunctival pallor. Sclera are non-icteric. Moist mucous membranes. Oropharynx is clear. NECK: Supple. Full ROM. No JVD. Carotid pulses 2+ and symmetric, without bruits. No thyromegaly. No lymphadenopathy. CARDIOVASCULAR: Regular rate and rhythm. No murmurs, rubs, or gallops. Distal pulses are 2+ and symmetric. PULMONARY: No evidence of respiratory distress. Lungs clear to auscultation bilaterally. No wheezing, rales or rhonchi. ABDOMINAL: Soft. Non-tender. Non-distended. No rebound or guarding. No organomegaly. Normoactive bowel sounds. MUSCULOSKELETAL Normal range of motion at all joints. No bony deformities or tenderness. No CVA tenderness. EXTREMITIES: No cyanosis. No clubbing. No edema. No calf tenderness. SKIN: Warm and dry. Normal capillary refill. No rashes. No jaundice. NEUROLOGICAL: Alert, awake, verbal. (Tierra Parnell) Heart Score/ECG Review - History History: Slightly suspicious - Electrocardiogram EKG: Non specific repolarization disturbance - Age Age: >/= 65 - Risk Factors Risk Factors Heart Score: Yes Hx Hypertension Based on the list above the patient has:: 1-2 risk factors - Troponin Troponin: </= normal limit - Score Heart Score - Total: 4 - ECG Intrepretation Rhythm: Regular Rhythm - ECG Impressions Bradycardia: Yes <Margaret Jay - Last Filed: 06/27/17 03:19> ED Treatment Course - LABORATORY CBC & Chemistry Diagram: 06/27/17 00:58 06/27/17 00:58 <Tierra Parnell - Last Filed: 06/27/17 02:06> - LABORATORY CBC & Chemistry Diagram: 06/27/17 00:58 06/27/17 00:58 <Margaret Jay - Last Filed: 06/27/17 03:19> - ADDITIONAL ORDERS Additional order review: Laboratory Results 06/27/17 06/27/17 06/27/17 01:06 00:58 00:58 INR Sodium 139 Potassium 4.1 Chloride 104 Carbon Dioxide 27 Anion Gap 8 BUN 16 D Creatinine 0.6 Creat Clearance w eGFR > 60 Random Glucose 110 H D Calcium 8.9 Total Bilirubin 0.4 D AST 16 D ALT 19 D Alkaline Phosphatase 90 Creatine Kinase 119 Troponin I 0.02 Total Protein 6.5 Albumin 3.4 Urine Color Lt. yellow Urine Appearance Clear Urine pH 7.0 Urine Protein Negative Urine Glucose (UA) Negative Urine Ketones Negative Urine Blood Trace-inta Urine Nitrite Negative Urine Bilirubin Negative Urine Urobilinogen 0.2 Blood Type A POSITIVE Antibody Screen Negative 06/27/17 00:58 INR 1.12 Sodium Potassium Chloride Carbon Dioxide Anion Gap BUN Creatinine Creat Clearance w eGFR Random Glucose Calcium Total Bilirubin AST ALT Alkaline Phosphatase Creatine Kinase Troponin I Total Protein Albumin Urine Color Urine Appearance Urine pH Urine Protein Urine Glucose (UA) Urine Ketones Urine Blood Urine Nitrite Urine Bilirubin Urine Urobilinogen Blood Type Antibody Screen 06/27/17 00:58 RBC 3.88 MCV 94.1 MCHC 32.6 RDW 12.9 MPV 9.4 Neutrophils % 77.1 Lymphocytes % 13.7 Monocytes % 8.0 Eosinophils % 0.6 Basophils % 0.6 - RADIOLOGY Radiology Studies Ordered: Category Date Time Status HEAD CT WITHOUT CONTRAST [CT] Stat CT Scan 06/27/17 00:01 Taken Radiograph Interpretation: 06/27/17 02:06 EXAM: CT HEAD WITHOUT CONTRAST No acute brain parenchymal abnormality. No hemorrhage, mass or acute territorial infarct. Atrophy and chronic small vessel ischemic changes. Surgical changes frontal bone. Partial opacification right frontal sinus. Visualized mastoid air cells clear. THIS DOCUMENT HAS BEEN ELECTRONICALLY SIGNED Micki Olivarez M.D. 06/27/2017 02:05 EST (Tierra Parnell) *DC/Admit/Observation/Transfer <Tierra Parnell - Last Filed: 06/27/17 02:06> - Discharge Dispostion Admit: Yes <Margaret Jay - Last Filed: 06/27/17 03:19> Diagnosis at time of Disposition: Bradycardia Dementia Qualifiers: Dementia type: unspecified type Dementia behavioral disturbance: without behavioral disturbance Qualified Code(s): F03.90 - Unspecified dementia without behavioral disturbance Syncope Qualifiers: Syncope type: unspecified Qualified Code(s): R55 - Syncope and collapse Head injury due to trauma Qualifiers: Encounter type: initial encounter Qualified Code(s): S09.90XA - Unspecified injury of head, initial encounter - Discharge Dispostion Decision to Admit order Date/Time: Decision to Admit Order Category Date Time Status Decision to Admit to Hospital Routine Admission 06/27/17 03:17 Active - Referrals Referrals: Mara Louise MD [Primary Care Provider] - - Attestations Scribe Attestion: 06/26/17 23:12 Documentation prepared by CASA Fulton, acting as medical oncology physician for Margaret Jay MD. (Tierra Parnell)
[2017-06-26] MEDS ORDERED: SODIUM CHLORIDE 1,000 ML IV SCH (23:15)
[2017-06-27 01:10] LABS: BASOPHIL 0.6 % (0-2.0); EOSINOPHIL 0.6 % (0-4.5); MCH 30.6 pg (25.7-33.7); MCHC 32.6 g/dl (32.0-36.0); MEAN CELL VOLUME 94.1 fl (80-96); MEAN PLT VOLUME 9.4 fl (7.5-11.1); NEUTROPHILS 77.1 % (42.8-82.8); PLATELET COUNT 208 K/MM3 (134-434); RDW 12.9 % (11.6-15.6); WHITE BLOOD COUNT 7.5 K/mm3 (4.0-10.0)
[2017-06-27 01:19] LABS: URINE APPEARANCE CLEAR; URINE BILIRUBIN NEGATIVE (NEGATIVE); URINE BLOOD TRACE-INTA (NEGATIVE); URINE COLOR LT. YELLOW; URINE GLUCOSE (UA) NEGATIVE (NEGATIVE); URINE KETONE NEGATIVE (NEGATIVE); URINE NITRITE NEGATIVE (NEGATIVE); URINE PROTEIN NEGATIVE (NEGATIVE); URINE UROBILINOGEN 0.2 mg/dL (0.2-1.0)
[2017-06-27 01:30] LABS: INR 1.12 (0.82-1.09); PROTHROMBIN TIME (PATIENT) 12.4 SEC (9.98-11.88)
[2017-06-27 01:40] LABS: ALBUMIN 3.4 g/dl (3.4-5.0); ANION GAP 8 (8-16); BILIRUBIN,TOTAL 0.4 mg/dL (0.2-1.0); CALCIUM 8.9 mg/dL (8.5-10.1); CO2 27 mmol/L (21-32); CREATININE 0.6 mg/dL (0.55-1.02); GLUCOSE,RANDOM 110 mg/dL (74-106); SGOT/AST 16 U/L (15-37); SGPT/ALT 19 U/L (12-78); TOT PROT 6.5 g/dl (6.4-8.2)
[2017-06-27 01:42] LABS: ALK PHOS 90 U/L (45-117); CPK 119 IU/L (26-192); TROPONIN I 0.02 ng/ml (0.00-0.05)
[2017-06-27 06:26] LABS: BASOPHIL 0.5 % (0-2.0); EOSINOPHIL 1.2 % (0-4.5); MCH 31.4 pg (25.7-33.7); MCHC 33.6 g/dl (32.0-36.0); MEAN CELL VOLUME 93.6 fl (80-96); MEAN PLT VOLUME 9.4 fl (7.5-11.1); NEUTROPHILS 67.6 % (42.8-82.8); PLATELET COUNT 214 K/MM3 (134-434); WHITE BLOOD COUNT 5.6 K/mm3 (4.0-10.0)
[2017-06-27 06:49] LABS: ALK PHOS 84 U/L (45-117); ANION GAP 8 (8-16); BILIRUBIN,TOTAL 0.6 mg/dL (0.2-1.0); CALCIUM 8.6 mg/dL (8.5-10.1); CO2 28 mmol/L (21-32); CREATININE 0.5 mg/dL (0.55-1.02); GLUCOSE,RANDOM 95 mg/dL (74-106); MAGNESIUM 2.1 mg/dL (1.8-2.4); PHOSPHOROUS 2.6 mg/dL (2.5-4.9); SGOT/AST 12 U/L (15-37); SGPT/ALT 15 U/L (12-78); TOT PROT 6.1 g/dl (6.4-8.2)
[2017-06-27] MEDS: CILOSTAZOL 50 MG TABLET (FP) PO SCH ×2 (09:21→21:26)
[2017-06-27] MEDS: TIMOLOL 0.5% OPHTHALMIC SOL 5 ML BOTTLE OU SCH ×2 (09:22→21:24)
[2017-06-27] MEDS: ESCITALOPRAM OXALATE 10 MG TABLET (FP) PO SCH (09:22)
[2017-06-27] MEDS: FOLIC ACID 1 MG TABLET (FP) PO SCH (09:22)
[2017-06-27] MEDS: DONEPEZIL HCL 10 MG TABLET (FP) PO SCH (09:22)
--- NOTE | 2017-06-27 09:50 | CON.CARD ---
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 According to family recently started on seroquel 12.5 mg bid by neurologist. had received first dose a few hours before syncopal episode. patient does not recall event. Family states that they heard her fall. + brief loc noted when family arrived at her side. Review of ambulance record: On EMS arrival, noted to be hypotensive 93/60. IVF started. When patient was moved into standing position she had prodrome of lightheadedness and subsequent syncopal event with brief LOC witnessed by EMS. Regained consciousness when placed in supine position. 400 cc of IVF infused. HR trended down to 40's and per report patient appeared lethargic. BP at the time 114/55. Was given 0.5 mg of atropine --> HR increased to 60's. BP remained stable. Has had ongoing decreased po intake. Family denies infectious symptoms. Patient has been increasingly more agitated. + hallucinations ongoing. prior history of severe depression. chronic abdominal pain, myalgias, le pain/neuropathy per report, no cp, sob, palps, orthopnea, pnd, le edema. sees my for cardio pmhx/pshx: per hpi social hx: never smoker family hx: 2 siblings with fatal mi ros: per hpi. no f/c/s, n/v/d, h/a, cough, congestion, rashes. Ambulatory Orders Cilostazol 50 mg PO BID 01/04/16 Donepezil HCl 10 mg PO DAILY 01/04/16 Timolol 0.5% [Timoptic] 1 drop OU BID 02/05/16 Folic Acid 1 mg PO DAILY 06/20/16 Pravastatin Sodium 10 mg PO DAILY 06/20/16 Escitalopram Oxalate [Lexapro -] 5 mg PO DAILY 10/18/16 Gabapentin 300 mg PO HS 10/25/16 Methotrexate Sodium [Methotrexate] 20 mg PO WEEKLY 10/25/16 Note, patient was on cilostazol 100 mg bid an dis no longer on pravastatin. Current Medications Cilostazol (Pletal -) 50 mg PO BID [facility] Last Admin: 06/27/17 09:21 Dose: 50 mg Donepezil HCl (Aricept -) 10 mg PO DAILY [facility] [place] Last Admin: 06/27/17 09:22 Dose: 10 mg Escitalopram Oxalate (Lexapro -) 5 mg PO DAILY [facility] [place] Last Admin: 06/27/17 09:22 Dose: 5 mg Folic Acid (Folic Acid -) 1 mg PO DAILY [facility] [place] Last Admin: 06/27/17 09:22 Dose: 1 mg Gabapentin (Neurontin -) 300 mg PO HS [facility] Sodium Chloride (Normal Saline -) 1,000 mls @ 42 mls/hr IV ASDIR [facility] [place] Last Admin: 06/27/17 01:13 Dose: 42 mls/hr Non-Formulary Med( (Pravastatin 10mg)) 1 each PO [facility] Timolol Maleate (Timoptic 0.5%) 1 drop OU BID [facility] Last Admin: 06/27/17 09:22 Dose: Not Given Vital Signs - 24 hr 06/26/17 06/27/17 06/27/17 22:51 01:35 02:40 Temperature 97.5 F L Pulse Rate 65 Pulse Rate [ 68 70 Apical] Respiratory 20 18 18 Rate Blood Pressure 128/69 Blood Pressure 124/76 136/79 [Left Arm] Blood Pressure [Right Arm] O2 Sat by Pulse 100 99 99 Oximetry (%) 06/27/17 06/27/17 06/27/17 03:49 04:43 06:57 Temperature Pulse Rate Pulse Rate [ 71 58 L 58 L Apical] Respiratory 68 H 17 15 Rate Blood Pressure Blood Pressure 128/78 [Left Arm] Blood Pressure 117/56 149/65 [Right Arm] O2 Sat by Pulse 98 98 Oximetry (%) 06/27/17 06/27/17 07:46 07:54 Temperature 97.7 F Pulse Rate Pulse Rate [ 62 Apical] Respiratory 14 Rate Blood Pressure Blood Pressure [Left Arm] Blood Pressure 123/65 [Right Arm] O2 Sat by Pulse 99 99 Oximetry (%) Intake & Output 06/25/17 06/26/17 06/27/17 06/28/17 07:59 07:59 07:59 07:59 Weight 120 lb nad, calm jvd flat, neck supple ctab, nl effort rrr nl s1, s2 no mrg + bs soft nt nd ext without e/c/c alert no jaundice, diaphoresis + dp/pt no carotid bruit CBC, BMP 06/27/17 06:10 06/27/17 06:10 Laboratory Tests 06/27/17 06/27/17 00:58 06:10 Magnesium 2.1 Total Bilirubin 0.6 D AST 12 L D ALT 15 D Alkaline Phosphatase 84 Creatine Kinase 119 Troponin I 0.02 Albumin 3.0 L ekg: sb 48 bpm. nl intervals. non-specific t wave ab in v1 an v2. head ct: no acute pathology. carotid u/s no stenosis. echo 10/2016: nl lv/rv/valves. no rvsp measured. per family had two catheterizations in - one peripheral which showed disease in one leg s/p ?atherectomy or angioplasty ([facility]- Dr. Mccracken) - cardiac catheterization in the at [facility]. Had angioplasty, no stent per family. PVR 03/2016: Overall decreased pressures bilaterally. Lt RUIZ 0.8. Calf and ankle RUIZ 0.96. Blunted waveforms bilaterally. 81 yo with h/o pvd on cilostozol, possible cad, former HTN (now off anti-htn), depression, alzheimers dementia, GERD, craniotomy for CSF leak in , Rheumatoid arthritis on methotrexate, anemia who p/w syncope. syncope - recent poor po intake. orthostatic syncopal event witnessed by ems (when moved into standing position --> prodrome of lightheadedness and subsequent syncopal event with brief LOC). orthostatics now negative s/p IVF. con't ivf per pmd. - telemetry monitoring, sixto, echo - PT - ? role of seroquel which can exacerbate orthostatic hypotension or worsening of qtc interval in setting of lexapro and cilostozol?. neurology following. no acute pathology on head ct, carotid u/s no stenosis. bradycardia - nl pr, qrs and qtc intervals. - ? component of neurocardiogenic syncope and subsequent cardioinhibitory response? Monitor for improvement - check tsh, magnesium - tele monitoring. sixto. pvd on cilostozol, - previously le pain significantly worse off of cilostozol. However, given syncope and multiple qtc prolonging drugs in regimen, will hold. Monitor for recurrence of claudication. - resume aspirin, but will consider if exacerbating abdominal discomfort/poor po intake. Also need to re-evaluate bleeding risk in setting of this syncopal event - off statin given myalgias and considering age and deteriorating cognition. possible cad - per family may have had angioplasty in past. - con't sixto. no anginal symptoms. - ASA, statin discussion as above.
[2017-06-27 10:06] LABS: TROPONIN I 0.02 ng/ml (0.00-0.05)
--- NOTE | 2017-06-27 10:41 | EKG ---
Test Reason : Blood Pressure : / mmHG Vent. Rate : 048 BPM Atrial Rate : 048 BPM P-R Int : 176 ms QRS Dur : 084 ms QT Int : 438 ms P-R-T Axes : 033 012 045 degrees QTc Int : 391 ms SINUS BRADYCARDIA OTHERWISE NORMAL ECG WHEN COMPARED WITH ECG OF 09-NOV-2016 13:19, DECREASE IN HEART RATE. REPEAT EKG IF CLINICALLY INDICATED Confirmed by LIBAN COSME MD ([id number]) on 06/27/2017 10:40:35 AM Referred By: Confirmed By:LIBAN COSME MD
[2017-06-27 11:15] VITALS: BMI 22.6
--- NOTE | 2017-06-27 12:29 | HP ---
Admitting History and Physical - Primary Care Physician PCP: Mara Louise - Admission Chief Complaint: I have a headache History of Present Illness: Ms Ramirez is a very pleasant 81 year old female who comes in s/p fall. Patient is zambian speaking only with dementia so history comes through daughter. Patient complains of headache and makes mentions of surgery in the past. Unable to obtain further information from patient secondary to dementia. Daughter says yesterday Ms Ramirez was in her normal state of health. She was walking around without difficulty and had no complaints. However when they got home and sat down to eat, Ms Ramirez did not eat a lot. Daughter says Ms Ramirez then became belligerent, refusing to eat and trying to wander outside. She says this is not unusual behavior recently secondary to her dementia. She was given 1/2 dose of seroquel and then went into the bedroom. A loud thump was heard and Ms Ramirez was found unconscious. It appears she did hit her head. Because of that she was brought in. 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 Cardiovascular: Yes: Hyperlipdemia, Other (PVD) Rheumatology: Yes: Rheumatoid Arthritis - Past Surgical History Additional Past Surgical History: Head surgery of some type, difficult to ascertain secondary to description - Smoking History Smoking history: Never smoked Have you smoked in the past 12 months: No Aproximately how many cigarettes per day: 0 - Alcohol/Substance Use Hx Alcohol Use: No History of Substance Use: reports: None - Social History Usual Living Arrangement: Yes: With Child ADL: Family Assistance History of Recent Travel: No Home Medications - Allergies Allergies/Adverse Reactions: Allergies Allergy/AdvReac Type Severity Reaction Status Date / Time No Known Drug Allergies Allergy Verified 06/26/17 22:50 shellfish derived AdvReac Mild Itching Verified 06/26/17 22:50 - Home Medications Home Medications: Ambulatory Orders Cilostazol 50 mg PO BID 01/04/16 Donepezil HCl 5 mg PO BID 01/04/16 Timolol 0.5% [Timoptic] 1 drop OU BID 02/05/16 Folic Acid 1 mg PO DAILY 06/20/16 Pravastatin Sodium 10 mg PO DAILY 06/20/16 Escitalopram Oxalate [Lexapro -] 5 mg PO DAILY 10/18/16 Gabapentin 300 mg PO HS 10/25/16 Methotrexate Sodium [Methotrexate] 20 mg PO TH 10/25/16 Quetiapine Fumarate [Seroquel -] 12.5 mg PO HS 06/27/17 Vitamin B Complex 2 each PO DAILY 06/27/17 Family Disease History - Family Disease History Family Disease History: Other: Brother (dementia) Review of Systems Unable to obtain ROS, reason: dementia Physical Examination Vital Signs: Vital Signs Temperature 36.5 C 06/27/17 07:54 Pulse Rate 62 06/27/17 11:49 Respiratory Rate 18 06/27/17 11:09 Blood Pressure 145/69 06/27/17 11:49 O2 Sat by Pulse Oximetry (%) 98 06/27/17 11:09 Constitutional: Yes: Well Nourished, No Distress, Calm Eyes: Yes: Conjunctiva Clear, EOM Intact, PERRL HENT: Yes: Atraumatic, Normocephalic Cardiovascular: Yes: Regular Rate and Rhythm. No: Gallop, Murmur, Rub Respiratory: Yes: Regular, CTA Bilaterally. No: Rales, Rhonchi, Wheezes Gastrointestinal: Yes: Normal Bowel Sounds, Soft. No: Distention, Tenderness Extremities: Yes: WNL Edema: No Neurological: Yes: WNL Labs: CBC, BMP 06/27/17 06:10 06/27/17 06:10 Imaging - Results Cat Scan: Report Reviewed Problem List - Problems (1) Syncope Assessment/Plan: -patient presents with syncope and head trauma -admit to telemetry observation -possibly secondary to seroquel, will hold currently -carotid ultrasound performed -awaiting ECHO read -cardiology and neurology consulted -PT consult with fall risk precautions Code(s): R55 - SYNCOPE AND COLLAPSE Qualifiers: Syncope type: unspecified Qualified Code(s): R55 - Syncope and collapse (2) Dementia Assessment/Plan: -continue home regimen -holding seroquel currently Code(s): F03.90 - UNSPECIFIED DEMENTIA WITHOUT BEHAVIORAL DISTURBANCE Qualifiers: Dementia type: unspecified type Dementia behavioral disturbance: without behavioral disturbance Qualified Code(s): F03.90 - Unspecified dementia without behavioral disturbance (3) Hyperlipidemia Assessment/Plan: -continue statin Code(s): E78.5 - HYPERLIPIDEMIA, UNSPECIFIED (4) PVD (peripheral vascular disease) Assessment/Plan: -continue pletal Code(s): I73.9 - PERIPHERAL VASCULAR DISEASE, UNSPECIFIED (5) Rheumatoid arthritis Assessment/Plan: -methotrexate q Code(s): M06.9 - RHEUMATOID ARTHRITIS, UNSPECIFIED (6) Headache Assessment/Plan: -will obtain second head CT since with headache after fall while on pletal Code(s): R51 - HEADACHE
[2017-06-27] MEDS: ACETAMINOPHEN 325 MG TABLET (FP) PO PRN ×2 (15:34→21:27)
--- NOTE | 2017-06-27 18:33 | CONSULT ---
Consult - text type - Consultation Consultation Note: Neurology HPI 81 year old female who presented due to fall. Patient is liberian speaking and therefore communication occured mostly through family at bedside. She also has underlying cognitive impairment and the family reports it has been getting worse. She has been more confused of late and seems it may be difficult for them to manage. In terms of recent fall, the night of admission reportedly the patient had limited PO intake, became belligerent, refusing to eat and trying to wander outside. She was given 1/2 dose of seroquel and then went into the bedroom. A loud thump was heard and Ms Ramirez was found unconscious. She completed CT head in the ER which was did not show acute changes. Carotid Doppler also reviewed and without hemodynamically significant strenosis. 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: Dementia Cardiovascular: Yes: Hyperlipdemia, Other (PVD) Rheumatology: Yes: Rheumatoid Arthritis - Past Surgical History Additional Past Surgical History: Head surgery of some type, difficult to ascertain secondary to description - Smoking History Smoking history: Never smoked Have you smoked in the past 12 months: No Aproximately how many cigarettes per day: 0 - Alcohol/Substance Use Hx Alcohol Use: No History of Substance Use: reports: None - Social History Usual Living Arrangement: Yes: With Child ADL: Family Assistance History of Recent Travel: No Home Medications - Allergies Allergies/Adverse Reactions: Allergies Allergy/AdvReac Type Severity Reaction Status Date / Time No Known Drug Allergies Allergy Verified 06/26/17 22:50 shellfish derived AdvReac Mild Itching Verified 06/26/17 22:50 Active Medications Acetaminophen (Tylenol -) 650 mg PO Q4H PRN PRN Reason: FEVER OR PAIN Last Admin: 06/27/17 15:34 Dose: 650 mg Atorvastatin Calcium (Lipitor -) 10 mg PO DAILY [facility] Cilostazol (Pletal -) 50 mg PO BID [facility] Last Admin: 06/27/17 09:21 Dose: 50 mg Donepezil HCl (Aricept -) 10 mg PO DAILY [facility] Last Admin: 06/27/17 09:22 Dose: 10 mg Escitalopram Oxalate (Lexapro -) 5 mg PO DAILY [facility] Last Admin: 06/27/17 09:22 Dose: 5 mg Folic Acid (Folic Acid -) 1 mg PO DAILY [facility] Last Admin: 06/27/17 09:22 Dose: 1 mg Gabapentin (Neurontin -) 300 mg PO HS [facility] Sodium Chloride (Normal Saline -) 1,000 mls @ 42 mls/hr IV ASDIR [facility] Last Admin: 06/27/17 01:13 Dose: 42 mls/hr Methotrexate (Mexate -) 20 mg PO Th@1000 [facility] Timolol Maleate (Timoptic 0.5%) 1 drop OU BID [facility] Last Admin: 06/27/17 09:22 Dose: Not Given Family Disease History - Family Disease History Family Disease History: Other: Brother (dementia) Review of Systems Unable to obtain ROS, reason: dementia Physical Examination Vital Signs: Vital Signs Temperature 36.5 C 06/27/17 07:54 Pulse Rate 62 06/27/17 11:49 Respiratory Rate 18 06/27/17 11:09 Blood Pressure 145/69 06/27/17 11:49 O2 Sat by Pulse Oximetry (%) 98 06/27/17 11:09 Constitutional: Yes: Well Nourished, No Distress, Calm Eyes: Yes: Conjunctiva Clear, EOM Intact, PERRL HENT: Yes: Atraumatic, Normocephalic Cardiovascular: Yes: Regular Rate and Rhythm. No: Gallop, Murmur, Rub Respiratory: Yes: Regular, CTA Bilaterally. No: Rales, Rhonchi, Wheezes Gastrointestinal: Yes: Normal Bowel Sounds, Soft. No: Distention, Tenderness Extremities: Yes: WNL Edema: No Neurological: CN intact, limited cooperation with exam, doesn't know date or exact location, moves all extremities grossly, sensory intact, gait deferred Labs: CBCD WBC 5.6 K/mm3 (4.0-10.0) 06/27/17 06:10 RBC 3.72 M/mm3 (3.60-5.2) 06/27/17 06:10 Hgb 11.7 GM/dL (10.7-15.3) 06/27/17 06:10 Hct 34.9 % (32.4-45.2) 06/27/17 06:10 MCV 93.6 fl (80-96) 06/27/17 06:10 MCHC 33.6 g/dl (32.0-36.0) 06/27/17 06:10 RDW 13.0 % (11.6-15.6) 06/27/17 06:10 Plt Count 214 K/MM3 (134-434) 06/27/17 06:10 MPV 9.4 fl (7.5-11.1) 06/27/17 06:10 CMP Sodium 143 mmol/L (136-145) 06/27/17 06:10 Potassium 4.1 mmol/L (3.5-5.1) 06/27/17 06:10 Chloride 107 mmol/L (98-107) 06/27/17 06:10 Carbon Dioxide 28 mmol/L (21-32) 06/27/17 06:10 Anion Gap 8 (8-16) 06/27/17 06:10 BUN 12 mg/dL (7-18) D 06/27/17 06:10 Creatinine 0.5 mg/dL (0.55-1.02) L 06/27/17 06:10 Creat Clearance w eGFR > 60 (>60) 06/27/17 06:10 Calcium 8.6 mg/dL (8.5-10.1) 06/27/17 06:10 Total Bilirubin 0.6 mg/dL (0.2-1.0) D 06/27/17 06:10 AST 12 U/L (15-37) L D 06/27/17 06:10 ALT 15 U/L (12-78) D 06/27/17 06:10 Alkaline Phosphatase 84 U/L (45-117) 06/27/17 06:10 Total Protein 6.1 g/dl (6.4-8.2) L 06/27/17 06:10 Albumin 3.0 g/dl (3.4-5.0) L 06/27/17 06:10 Imaging - Results Cat Scan: Report, images Reviewed Carotid Doppler Plan: 81 year old female who presented due to fall. Patient is liberian speaking and therefore communication occured mostly through family at bedside. She also has underlying cognitive impairment and the family reports it has been getting worse. She has been more confused of late and seems it may be difficult for them to manage. In terms of recent fall, the night of admission reportedly the patient had limited PO intake, became belligerent, refusing to eat and trying to wander outside. She was given 1/2 dose of seroquel and then went into the bedroom. A loud thump was heard and Ms Ramirez was found unconscious. She completed CT head in the ER which was did not show acute changes. Carotid Doppler also reviewed and without hemodynamically significant strenosis. Continue Tele monitoring May have been medication induced complicated by poor PO intake Can continue Donepizil for Dementia Continue Statin for HLD My concern is family ability to care for patient Discussed possible placement ([facility] close by) and recommended they speak further Patient may be opposed but may be unsafe if she is not supervised especially with multiple recent falls Physcial theray, gait training recommended
[2017-06-27] MEDS ORDERED: GABAPENTIN 300 MG CAPSULE (FP) PO SCH (22:00)
[2017-06-27] MEDS ORDERED: PRAVASTATIN 10 MG PO SCH (22:00)
[2017-06-27 22:55] LABS: TROPONIN I 0.02 ng/ml (0.00-0.05)
[2017-06-28 07:28] LABS: EOSINOPHIL 3.1 % (0-4.5); MCH 30.6 pg (25.7-33.7); MCHC 32.8 g/dl (32.0-36.0); MEAN CELL VOLUME 93.4 fl (80-96); MEAN PLT VOLUME 9.6 fl (7.5-11.1); NEUTROPHILS 52.3 % (42.8-82.8); PLATELET COUNT 221 K/MM3 (134-434); WHITE BLOOD COUNT 4.2 K/mm3 (4.0-10.0)
[2017-06-28 07:57] LABS: ANION GAP 4 (8-16); CALCIUM 8.9 mg/dL (8.5-10.1); CO2 31 mmol/L (21-32)
[2017-06-28 08:10] LABS: CREATININE 0.5 mg/dL (0.55-1.02); GLUCOSE,RANDOM 86 mg/dL (74-106); MAGNESIUM 2.2 mg/dL (1.8-2.4); PHOSPHOROUS 3.2 mg/dL (2.5-4.9); THYROID STIMULATING HORMONE 1.37 uIU/ml (0.358-3.74)
[2017-06-28] MEDS: ESCITALOPRAM OXALATE 10 MG TABLET (FP) PO SCH (09:54)
[2017-06-28] MEDS: FOLIC ACID 1 MG TABLET (FP) PO SCH (09:54)
[2017-06-28] MEDS: DONEPEZIL HCL 10 MG TABLET (FP) PO SCH (09:54)
[2017-06-28] MEDS: TIMOLOL 0.5% OPHTHALMIC SOL 5 ML BOTTLE OU SCH (09:55)
[2017-06-28] MEDS ORDERED: ATORVASTATIN CA 10 MG TABLET (FP) PO SCH (10:00)
[2017-06-28] MEDS ORDERED: ASPIRIN 81 MG CHEWABLE TABLETS PO SCH (10:00)
--- NOTE | 2017-06-28 10:12 | PN ---
Progress Note (short form) - Note Progress Note: Neurology HPI 81 year old female who presented due to fall. Patient is estonian speaking and therefore communication occured mostly through family at bedside. She also has underlying cognitive impairment and the family reports it has been getting worse. She has been more confused of late and seems it may be difficult for them to manage. In terms of recent fall, the night of admission reportedly the patient had limited PO intake, became belligerent, refusing to eat and trying to wander outside. She was given 1/2 dose of seroquel and then went into the bedroom. A loud thump was heard and Ms Ramirez was found unconscious. She completed CT head in the ER which was did not show acute changes. Carotid Doppler also reviewed and without hemodynamically significant strenosis. Repeat CT head completed overnight and reviewed, did not show acute changes. Neurologically, seems that this is likely her baseline and she is cognitively stable. Active Medications Acetaminophen (Tylenol -) 650 mg PO Q4H PRN PRN Reason: FEVER OR PAIN Last Admin: 06/27/17 21:27 Dose: 650 mg Aspirin (Asa -) 81 mg PO DAILY [facility] Last Admin: 06/28/17 09:54 Dose: 81 mg Donepezil HCl (Aricept -) 10 mg PO DAILY [facility] Last Admin: 06/28/17 09:54 Dose: 10 mg Escitalopram Oxalate (Lexapro -) 5 mg PO DAILY [facility] Last Admin: 06/28/17 09:54 Dose: 5 mg Folic Acid (Folic Acid -) 1 mg PO DAILY [facility] Last Admin: 06/28/17 09:54 Dose: 1 mg Gabapentin (Neurontin -) 300 mg PO HS [facility] Last Admin: 06/27/17 21:27 Dose: 300 mg Methotrexate (Mexate -) 20 mg PO Th@1000 [facility] Timolol Maleate (Timoptic 0.5%) 1 drop OU BID [facility] Last Admin: 06/28/17 09:55 Dose: 1 drop Physical Examination Vital Signs Temperature 97.4 F L 06/28/17 06:00 Pulse Rate 62 06/28/17 06:00 Respiratory Rate 18 06/28/17 06:00 Blood Pressure 137/74 06/28/17 06:00 O2 Sat by Pulse Oximetry (%) 97 06/28/17 04:28 Constitutional: Yes: Well Nourished, No Distress, Calm Eyes: Yes: Conjunctiva Clear, EOM Intact, PERRL HENT: Yes: Atraumatic, Normocephalic Cardiovascular: Yes: Regular Rate and Rhythm. No: Gallop, Murmur, Rub Respiratory: Yes: Regular, CTA Bilaterally. No: Rales, Rhonchi, Wheezes Gastrointestinal: Yes: Normal Bowel Sounds, Soft. No: Distention, Tenderness Extremities: Yes: WNL Edema: No Neurological: CN intact, limited cooperation with exam, doesn't know date or exact location, moves all extremities grossly, sensory intact, gait deferred Labs: CBCD WBC 4.2 K/mm3 (4.0-10.0) 06/28/17 05:35 RBC 4.03 M/mm3 (3.60-5.2) 06/28/17 05:35 Hgb 12.4 GM/dL (10.7-15.3) 06/28/17 05:35 Hct 37.7 % (32.4-45.2) 06/28/17 05:35 MCV 93.4 fl (80-96) 06/28/17 05:35 MCHC 32.8 g/dl (32.0-36.0) 06/28/17 05:35 RDW 13.0 % (11.6-15.6) 06/28/17 05:35 Plt Count 221 K/MM3 (134-434) 06/28/17 05:35 MPV 9.6 fl (7.5-11.1) 06/28/17 05:35 CMP Sodium 142 mmol/L (136-145) 06/28/17 05:35 Potassium 4.0 mmol/L (3.5-5.1) 06/28/17 05:35 Chloride 107 mmol/L (98-107) 06/28/17 05:35 Carbon Dioxide 31 mmol/L (21-32) 06/28/17 05:35 Anion Gap 4 (8-16) L 06/28/17 05:35 BUN 10 mg/dL (7-18) 06/28/17 05:35 Creatinine 0.5 mg/dL (0.55-1.02) L 06/28/17 05:35 Creat Clearance w eGFR > 60 (>60) 06/27/17 06:10 Calcium 8.9 mg/dL (8.5-10.1) 06/28/17 05:35 Total Bilirubin 0.6 mg/dL (0.2-1.0) D 06/27/17 06:10 AST 12 U/L (15-37) L D 06/27/17 06:10 ALT 15 U/L (12-78) D 06/27/17 06:10 Alkaline Phosphatase 84 U/L (45-117) 06/27/17 06:10 Total Protein 6.1 g/dl (6.4-8.2) L 06/27/17 06:10 Albumin 3.0 g/dl (3.4-5.0) L 06/27/17 06:10 Imaging - Results Cat Scan: Report, images Reviewed Carotid Doppler reviewed Repeat CT head reviewed Plan: 81 year old female who presented due to fall. Patient is estonian speaking and therefore communication occured mostly through family at bedside. She also has underlying cognitive impairment and the family reports it has been getting worse. She has been more confused of late and seems it may be difficult for them to manage. In terms of recent fall, the night of admission reportedly the patient had limited PO intake, became belligerent, refusing to eat and trying to wander outside. She was given 1/2 dose of seroquel and then went into the bedroom. A loud thump was heard and Ms Ramirez was found unconscious. CT head repeated and without acute changes Carotid Doppler also reviewed and without hemodynamically significant strenosis. Continue Tele monitoring May have been medication induced complicated by poor PO intake, spoke to daughter and this was first time dose of Seroquel and she can retry but if similar event occurs, would not use seroquel again Can continue Donepizil for Dementia Continue Statin for HLD My concern is family ability to care for patient Discussed possible placement but this observation stay would not be optimial situation for that but something for family to consider Patient may be opposed but may be unsafe if she is not supervised especially with multiple recent falls Physcial theray, gait training recommended Follow up as outpatient
--- NOTE | 2017-06-28 10:12 | DS ---
Physical Examination Vital Signs: Vital Signs Temperature 36.3 C L 06/28/17 06:00 Pulse Rate 62 06/28/17 06:00 Respiratory Rate 18 06/28/17 06:00 Blood Pressure 137/74 06/28/17 06:00 O2 Sat by Pulse Oximetry (%) 97 06/28/17 04:28 Constitutional: Yes: Well Nourished, No Distress, Calm Cardiovascular: Yes: Regular Rate and Rhythm. No: Gallop, Murmur, Rub Respiratory: Yes: Regular, CTA Bilaterally. No: Rales, Rhonchi, Wheezes Gastrointestinal: Yes: Normal Bowel Sounds, Soft. No: Distention, Tenderness Extremities: Yes: WNL Edema: No Labs: CBC, BMP 06/28/17 05:35 06/28/17 05:35 Discharge Summary Reason For Visit: SYNCOPE DEMENTIA HEAD INJURY Current Active Problems Bradycardia (Acute) Head injury due to trauma (Acute) Headache (Acute) Rheumatoid arthritis (Acute) Syncope (Acute) Dementia (Chronic) Hospital Course: (1) Syncope Code(s): R55 - SYNCOPE AND COLLAPSE Qualifiers: Syncope type: unspecified Qualified Code(s): R55 - Syncope and collapse (2) Dementia Code(s): F03.90 - UNSPECIFIED DEMENTIA WITHOUT BEHAVIORAL DISTURBANCE Qualifiers: Dementia type: unspecified type Dementia behavioral disturbance: without behavioral disturbance Qualified Code(s): F03.90 - Unspecified dementia without behavioral disturbance (3) Hyperlipidemia Code(s): E78.5 - HYPERLIPIDEMIA, UNSPECIFIED (4) PVD (peripheral vascular disease) Code(s): I73.9 - PERIPHERAL VASCULAR DISEASE, UNSPECIFIED (5) Rheumatoid arthritis Code(s): M06.9 - RHEUMATOID ARTHRITIS, UNSPECIFIED (6) Headache Code(s): R51 - HEADACHE Ms Ramirez is an 81 year old female with Alzheimers dementia who comes in with fall and head trauma secondary to syncope. She was admitted to telemetry observation. She was found to be orthostatic and hydrated with IVF. Orthostatic resolved. She was seen by neurology and cardiology. She was also seen by PT and did well. Because of falls and her EKG pletal was stopped and she was changed to aspirin. She had head CT x2 since she had persistent headache with falls on pletal, both were negative. She is currently stable for discharge home with follow up with cardiology, PCP, and neurology. Case d/w daughter at bedside. 36 minutes spent in preparation of discharge Condition: Stable - Instructions Diet, Activity, Other Instructions: resume previous diet and activity Referrals: Mara Louise MD [Primary Care Provider] - Felipe Case MD [Staff Physician] - Candice Weinstein MD [Staff Physician] - Disposition: HOME - Home Medications Comprehensive Discharge Medication List: Ambulatory Orders Donepezil HCl 5 mg PO BID 01/04/16 Timolol 0.5% [Timoptic] 1 drop OU BID 02/05/16 Folic Acid 1 mg PO DAILY 06/20/16 Pravastatin Sodium 10 mg PO DAILY 06/20/16 Escitalopram Oxalate [Lexapro -] 5 mg PO DAILY 10/18/16 Gabapentin 300 mg PO HS 10/25/16 Methotrexate Sodium [Methotrexate] 20 mg PO TH 10/25/16 Quetiapine Fumarate [Seroquel -] 12.5 mg PO HS 06/27/17 Vitamin B Complex 2 each PO DAILY 06/27/17 Aspirin [ASA -] 81 mg PO DAILY tab.chew 06/28/17
[2017-06-28 11:31] VITALS: BP 114/85; PULSE 72; TEMP 98
--- NOTE | 2017-06-28 11:50 | PN ---
Progress Note (short form) - Note Progress Note: s: no cp sob palps dizzy o: Vital Signs Period Temp Pulse Resp BP Sys/Singh Pulse Ox Last 24 Hr 97.3 F-98.7 F 57-72 18-20 109-146/59-85 97-98 nad, calm jvd flat, neck supple ctab, nl effort rrr nl s1, s2 no mrg + bs soft nt nd ext without e/c/c alert no jaundice, diaphoresis Current Medications Generic Name Dose Route Start Last Admin Trade Name Freq PRN Reason Stop Dose Admin Acetaminophen 650 mg 06/27/17 15:02 06/27/17 21:27 Tylenol - PO 650 mg Q4H PRN Administration FEVER OR PAIN Aspirin 81 mg 06/28/17 10:00 06/28/17 09:54 Asa - PO 81 mg DAILY MELE Administration Donepezil HCl 10 mg 06/27/17 10:00 06/28/17 09:54 Aricept - PO 10 mg DAILY MELE Administration Escitalopram Oxalate 5 mg 06/27/17 10:00 06/28/17 09:54 Lexapro - PO 5 mg DAILY MELE Administration Folic Acid 1 mg 06/27/17 10:00 06/28/17 09:54 Folic Acid - PO 1 mg DAILY MELE Administration Gabapentin 300 mg 06/27/17 22:00 06/27/17 21:27 Neurontin - PO 300 mg HS MELE Administration Methotrexate 20 mg 06/29/17 10:00 Mexate - PO Th@1000 MELE Timolol Maleate 1 drop 06/27/17 10:00 06/28/17 09:55 Timoptic 0.5% OU 1 drop BID MELE Administration CBC, BMP 06/28/17 05:35 06/28/17 05:35 ekg: sb 48 bpm. nl intervals. non-specific t wave ab in v1 an v2. head ct: no acute pathology. carotid u/s no stenosis. echo 10/2016: nl lv/rv/valves. no rvsp measured. per family had two catheterizations ins - one peripheral which showed disease in one leg s/p ?atherectomy or angioplasty ([facility]- Dr. Mccracken) - cardiac catheterization in the s at [facility]. Had angioplasty, no stent per family. PVR 03/2016: Overall decreased pressures bilaterally. Lt RUIZ 0.8. Calf and ankle RUIZ 0.96. Blunted waveforms bilaterally. 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 syncope - recent poor po intake. orthostatic syncopal event witnessed by ems (when moved into standing position --> prodrome of lightheadedness and subsequent syncopal event with brief LOC). orthostatics now negative s/p IVF. - telemetry benign - ce's neg x3 - echo done today, results pending - PT bradycardia - nl pr, qrs and qtc intervals. - ? component of neurocardiogenic syncope and subsequent cardioinhibitory response? - tele benign, no pathologic bradycardia pvd on cilostozol, - previously le pain significantly worse off of cilostozol. However, given syncope and multiple qtc prolonging drugs in regimen, will hold. Monitor for recurrence of claudication. - resume aspirin - off statin given myalgias and considering age and deteriorating cognition. possible cad - per family may have had angioplasty in past. - con't sixto. no anginal symptoms. - ASA, statin discussion as above. cardiac purdy stable for dc if echo is benign (was done this AM)
[2017-06-29] MEDS ORDERED: METHOTREXATE 2.5 MG TABLET PO SCH (10:00)
== END 2017-06-28 15:13 | disposition home or self-care (01) ==
LOC: JER 22:34 → JERBED 06-27 03:17 → J4W 06-27 13:29
PROVIDERS: ADMIT Internal Medicine; ATTEND Internal Medicine
DX: R55 Syncope and collapse (principal); F03.90 Unspecified dementia, unspecified severity, without behavioral disturbance, psychotic disturbance, mood disturbance, and anxiety; E78.5 Hyperlipidemia, unspecified; I73.9 Peripheral vascular disease, unspecified; R00.1 Bradycardia, unspecified; S09.90XA Unspecified injury of head, initial encounter; M06.9 Rheumatoid arthritis, unspecified; I10 Essential (primary) hypertension; K21.9 Gastro-esophageal reflux disease without esophagitis; D64.9 Anemia, unspecified; Z86.73 Personal history of transient ischemic attack (TIA), and cerebral infarction without residual deficits; Z91.013 Allergy to seafood; W18.39XA Other fall on same level, initial encounter; Z91.81 History of falling; Y93.89 Activity, other specified; Y92.003 Bedroom of unspecified non-institutional (private) residence as the place of occurrence of the external cause
CPT/HCPCS: 36415; 70450-TC; 80048; 80053; 81003; 83735; 84100; 84443; 84484; 85025; 85610; 86850; 86900; 86901; 93005; 93010; 93306-TC; 93880-TC; 97116-GP; 97161-GP; 99285-25; G0378

== ENCOUNTER 2018-02-27 12:47 | Inpatient (IN) | payer OTHER ==
--- NOTE | 2018-02-27 14:02 | PDOC ---
History of Present Illness - General History Source: Patient, Family Exam Limitations: No Limitations - History of Present Illness Initial Comments: 02/27/18 14:52 The patient is an 82 year old female with a significant past medical history of TIA, rheumatoid arthritis, hypertension, hyperlipidemia, and Alzheimer's who presents to the emergency department for evaluation of left knee edema. The patient's daughter reports finding the patient on the floor near her bed lying on her back at 5am. The patient reports moderate left knee pain with no radiation and severe left knee swelling. The patient's daughter reports she noticed her mother limping and mild left knee swelling yesterday. As per the patient's daughter, she also notes that her mother has been lethargic for a few days. At baseline, the patient is able to ambulate without difficulty. The patient has associated symptoms of generalized weakness and fever. The patient denies chest pain, abdominal pain, shortness of breath, headache, and dizziness. Denies chills, nausea, vomiting, diarrhea, and constipation. Denies dysuria, frequency, urgency, and hematuria. Allergies: NKDA, shellfish derived. Past surgical history: Brain surgery r/t CSF leak, hysterectomy. Social history: No reported cigarette, alcohol, or drug use. PCP: Dr. Manjarrez ([phone]) <Savi Galvez - Last Filed: 02/27/18 14:52> <Corby Rapp - Last Filed: 02/27/18 18:47> - General Chief Complaint: Injury Stated Complaint: FALL, DIFFICULTY WALKING Time Seen by Provider: 02/27/18 14:02 Past History <Savi Galvez - Last Filed: 02/27/18 14:52> - Past Medical History CVA: Yes (TIA) COPD: No Dementia: Yes (ALZHEIMERS) HTN: Yes Hypercholesterolemia: Yes - Surgical History Neurologic Surgery: Yes (BRAIN SURGERY r/t CSF leak) - Suicide/Smoking/Psychosocial Hx Smoking History: Never smoked Have you smoked in the past 12 months: No Number of Cigarettes Smoked Daily: 0 Hx Alcohol Use: No Drug/Substance Use Hx: No Substance Use Type: None Hx Substance Use Treatment: No <Corby Rapp - Last Filed: 02/27/18 18:47> - Past Medical History Allergies/Adverse Reactions: Allergies Allergy/AdvReac Type Severity Reaction Status Date / Time No Known Drug Allergies Allergy Verified 02/27/18 12:58 shellfish derived AdvReac Mild Itching Verified 02/27/18 12:58 Home Medications: Ambulatory Orders Donepezil HCl 10 mg PO BID 01/04/16 Timolol 0.5% [Timoptic] 1 drop OU BID 02/05/16 Folic Acid 1 mg PO DAILY 06/20/16 Gabapentin 300 mg PO PRN 10/25/16 Vitamin B Complex 2 each PO DAILY 06/27/17 Alendronate Na [Fosamax] 70 mg PO Q7D 02/27/18 Cilostazol [Pletal -] 100 mg PO BID 02/27/18 Methotrexate [Mexate -] 2.5 mg PO Q7D 02/27/18 Review of Systems - Review of Systems Able to Perform ROS?: Yes Comments:: A complete review of 10 out of 10 review of systems is taken and is negative apart from what is previously mentioned below and in the HPI. <Savi Galvez - Last Filed: 02/27/18 14:52> *Physical Exam - Vital Signs Last Vital Signs Temp Pulse Resp BP Pulse Ox 101.8 F H 99 H 17 113/56 98 02/27/18 14:30 02/27/18 12:58 02/27/18 12:58 02/27/18 12:58 02/27/18 14:20 - Physical Exam Comments: Vitals: Triage Vital signs reviewed General Appearance: no acute distress, well nourished well developed, Head: Atraumatic, normocephalic Eyes: Pupils equal reactive round, extraocular movement intact Ears: TM's normal bilaterally; Nose: Nares patent bilaterally. Neck: Supple;No Nuchal rigidity Chest Wall: Nontender Cardiac: Regular rate and rhythm, no murmurs, no rubs, no gallops, Lungs: Clear to auscultation bilateral, good air movement bilaterally, Abdomen: Soft, nondistended, normal bowel sounds, nontender to palpation Rectal: Exam deferred Extremities: (+)Left knee edema. Skin: Warm and dry, no rashes or lesions, no petechiae Psych: normal mood, normal affect <Savi Galvez - Last Filed: 02/27/18 14:52> - Vital Signs Last Vital Signs Temp Pulse Resp BP Pulse Ox 99.4 F 99 H 17 113/56 98 02/27/18 12:58 02/27/18 12:58 02/27/18 12:58 02/27/18 12:58 02/27/18 12:58 <Corby Rapp - Last Filed: 02/27/18 18:47> Procedures - Arthrocentesis Indication: Septic Joint Arthrocentesis Site: left: knee Betadine Prep: Yes Sterile Dressing Applied: Yes Dry Tap: No Fluid Color: Yellow Anesthesia: 1% Lidocaine Needle Size (guage): 18g Complications: No <Corby Rapp - Last Filed: 02/27/18 18:47> Heart Score/ECG Review - ECG Impressions Comment:: ECG reviewed by Dr. Rapp at 14:10. Normal sinus rhythm. Moderate voltage criteria for LVH, may be normal variant. Borderline ECG. Vent. Rate 62 bpm OH Interval 162 ms QRS duration 84 ms QT/QTc 410/416 ms P-R-T axes 55 -10 35 <Savi Galvez - Last Filed: 02/27/18 14:52> ED Treatment Course - LABORATORY CBC & Chemistry Diagram: 02/27/18 14:24 02/27/18 14:24 - ADDITIONAL ORDERS Additional order review: Laboratory Results 02/27/18 14:30 VBG pH 7.43 H POC VBG pCO2 42.9 POC VBG pO2 29.4 Mixed VBG HCO3 27.9 H - Medications Given in the ED: ED Medications Discontinued Medications Generic Name Dose Route Start Last Admin Trade Name Freq PRN Reason Stop Dose Admin Acetaminophen 1,000 mg 02/27/18 14:22 02/27/18 14:46 Ofirmev Injection - IVPB 02/27/18 14:23 1,000 mg ONCE ONE Administration <Savi Galvez - Last Filed: 02/27/18 14:52> - LABORATORY CBC & Chemistry Diagram: 02/27/18 14:24 02/27/18 14:24 <Corby Rapp - Last Filed: 02/27/18 18:47> Medical Decision Making - Medical Decision Making The patient is an 82 year old female with a significant past medical history of TIA, rheumatoid arthritis, hypertension, hyperlipidemia, and Alzheimers who presents to the emergency department for evaluation of left knee edema. Plan: CT scan Chest x-ray Labs UA <Savi Galvez - Last Filed: 02/27/18 14:52> - Medical Decision Making 02/27/18 17:06 Fever lethargy. Sepsis workup initiated On examination left knee hot no evidence of superficial cellulitis No alternative evidence of infection noted. Decision made to perform left knee arthrocentesis to rule out septic knee Daughter healthcare proxy consent patient for procedure. Timeout and consent performed prior to procedure. Using universal sterile precautions left knee arthrocentesis performed with medications. Synovial fluid sent for crystal CBC and cultures 2 g ceftriaxone ordered Orthopedics consulted. We'll admit to medicine for further management. <Corby Rapp - Last Filed: 02/27/18 18:47> *DC/Admit/Observation/Transfer - Attestations Scribe Attestion: Documentation prepared by Savi Galvez, acting as hospitalist medical director for Corby Rapp MD. <Savi Galvez - Last Filed: 02/27/18 14:52> - Discharge Dispostion Decision to Admit order: Yes <Corby Rapp - Last Filed: 02/27/18 18:47> Diagnosis at time of Disposition: Fever Qualifiers: Fever type: unspecified Qualified Code(s): R50.9 - Fever, unspecified - Discharge Dispostion Condition at time of disposition: Stable - Referrals Referrals: Dora Manjarrez MD [Primary Care Provider] - - Patient Instructions - Post Discharge Activity
[2018-02-27] MEDS ORDERED: ACETAMINOPHEN INJECTION 100 ML IVPB ONE (14:15)
[2018-02-27] MEDS ORDERED: ACETAMINOPHEN 1000 MG/100 ML VIAL (NON FORMULARY) IVPB ONE (14:22)
[2018-02-27 14:44] LABS: VENOUS PH 7.43 (7.32-7.42)
[2018-02-27 14:45] LABS: VENOUS PC02 42.9 mmHg (38-52); VENOUS PO2 29.4 mmHg (28-48)
[2018-02-27 14:56] LABS: INR 1.16 (0.82-1.09); PROTHROMBIN TIME (PATIENT) 13.1 SEC (9.7-13.0)
[2018-02-27 14:59] LABS: ACTIVATED PTT 30.1 SECONDS (26.9-34.4)
[2018-02-27 15:06] LABS: BASO % 0.2 % (0-2.0); HEMATOCRIT 37.3 % (32.4-45.2); HEMOGLOBIN 12.1 GM/dL (10.7-15.3); LYMPH % 6.3 % (8-40); MCH 30.4 pg (25.7-33.7); MCHC 32.5 g/dl (32.0-36.0); MEAN CELL VOLUME 93.8 fl (80-96); MEAN PLT VOLUME 10.4 fl (7.5-11.1); MONO % 9.5 % (3.8-10.2); PLATELET COUNT 206 K/MM3 (134-434); RBC 3.98 M/mm3 (3.60-5.2); RDW 12.8 % (11.6-15.6)
[2018-02-27 15:07] LABS: ALBUMIN 3.3 g/dl (3.4-5.0); ANION GAP 6 (8-16); BILIRUBIN,TOTAL 0.8 mg/dL (0.2-1.0); CALCIUM 8.6 mg/dL (8.5-10.1); CHLORIDE 103 mmol/L (98-107); CO2 29 mmol/L (21-32); CREATININE 0.8 mg/dL (0.55-1.02); GLUCOSE,RANDOM 131 mg/dL (74-106); POTASSIUM 4.1 mmol/L (3.5-5.1); SGOT/AST 18 U/L (15-37); SGPT/ALT 15 U/L (12-78); SODIUM 138 mmol/L (136-145)
[2018-02-27 15:32] LABS: ALK PHOS 109 U/L (45-117); BLOOD UREA NITROGEN 14 mg/dL (7-18); TOT PROT 6.9 g/dl (6.4-8.2)
[2018-02-27 15:44] LABS: URINE APPEARANCE CLEAR; URINE BILIRUBIN NEGATIVE (<2.0 mg/dL); URINE COLOR YELLOW; URINE GLUCOSE (UA) NEGATIVE (NEGATIVE); URINE KETONE NEGATIVE (NEGATIVE); URINE LEUK ESTERASE NEGATIVE (NEGATIVE); URINE NITRITE NEGATIVE (NEGATIVE); URINE PROTEIN NEGATIVE (NEGATIVE); URINE UROBILINOGEN NEGATIVE mg/dL (0.2-1.0)
[2018-02-27] MEDS ORDERED: SODIUM CHLORIDE 0.9% 1000 ML INFUS.BAG IV ONE (15:49)
[2018-02-27] MEDS ORDERED: ACETAMINOPHEN 325 MG TABLET (FP) PO PRN (16:34)
[2018-02-27] MEDS ORDERED: ONDANSETRON 4 MG/2 ML VIAL IVPUSH PRN (16:34)
--- NOTE | 2018-02-27 16:50 | HP ---
Admitting History and Physical - Primary Care Physician PCP: Dora Manjarrez - Admission Chief Complaint: Unable to obtain History of Present Illness: Ms Ramirez is an 82 year old female with dementia who was brought in by her daughter and being found down. All history is obtained through the daughter as the patient cannot give secondary to dementia. According to the daughter the patient has been doing well. Yesterday she noted that the patient was limping a little bit and had a small amount of L knee swelling but was otherwise doing well. Today they heard her calling and found her down on the floor. Because of this she was brought in. They say she did not have fevers at home, she had a normal appetite and not vomiting, was not having diarrhea, and had no recent trauma aside from the fall this morning. The daughter says the knee was not hot or painful to touch but noted she was having pain when trying to move it. History Source: Family Member Limitations to Obtaining History: Dementia - Past Medical History [employer] TE[employer]IAN: Yes: Dementia Cardiovascular: Yes: Hyperlipdemia, Other (PVD) Rheumatology: Yes: Rheumatoid Arthritis - Smoking History Smoking history: Never smoked Have you smoked in the past 12 months: No Aproximately how many cigarettes per day: 0 - Alcohol/Substance Use Hx Alcohol Use: No History of Substance Use: reports: None - Social History Usual Living Arrangement: Yes: With Child ADL: Family Assistance History of Recent Travel: No Home Medications - Allergies Allergies/Adverse Reactions: Allergies Allergy/AdvReac Type Severity Reaction Status Date / Time No Known Drug Allergies Allergy Verified 02/27/18 12:58 shellfish derived AdvReac Mild Itching Verified 02/27/18 12:58 - Home Medications Home Medications: Ambulatory Orders Donepezil HCl 10 mg PO BID 01/04/16 Timolol 0.5% [Timoptic] 1 drop OU BID 02/05/16 Folic Acid 1 mg PO DAILY 06/20/16 Gabapentin 300 mg PO PRN 10/25/16 Vitamin B Complex 2 each PO DAILY 06/27/17 Alendronate Na [Fosamax] 70 mg PO Q7D 02/27/18 Cilostazol [Pletal -] 100 mg PO BID 02/27/18 Methotrexate [Mexate -] 2.5 mg PO Q7D 02/27/18 Family Disease History - Family Disease History Family Disease History: Other: Brother (dementia) Review of Systems Unable to obtain ROS, reason: dementia Physical Examination Vital Signs: Vital Signs Temperature 38.8 C H 02/27/18 14:30 Pulse Rate 99 H 02/27/18 12:58 Respiratory Rate 17 02/27/18 12:58 Blood Pressure 113/56 02/27/18 12:58 O2 Sat by Pulse Oximetry (%) 98 02/27/18 14:20 Constitutional: Yes: Well Nourished, No Distress, Calm Eyes: Yes: Conjunctiva Clear, PERRL HENT: Yes: Atraumatic, Normocephalic Cardiovascular: Yes: Regular Rate and Rhythm. No: Gallop, Murmur, Rub Respiratory: Yes: Regular, CTA Bilaterally. No: Rales, Rhonchi, Wheezes Gastrointestinal: Yes: Normal Bowel Sounds, Soft. No: Distention, Tenderness Extremities: Yes: Internal Rotation, Other (warmth of L patella). No: Erythema Edema: LLE: 1+ (patella) Labs: CBC, BMP 02/27/18 14:24 02/27/18 14:24 Imaging - Results Chest X-ray: Report Reviewed, Image Reviewed Cat Scan: Report Reviewed, Image Reviewed Problem List - Problems (1) Effusion of patella Assessment/Plan: -patient presents with spontaneous effusion of L patellar region -concerning that patient had a fever with this -WBC 8000, but immunosuppressed with methotrexate and also with elevated neutrophils -effusion to be drained in the ED and sent for gram stain and culture -since patient is immunocompromised on methotrexate, start on vancomycin and rocephin -ID and orthopedic surgery consulted Code(s): M25.469 - EFFUSION, UNSPECIFIED KNEE Qualifiers: Laterality: left Qualified Code(s): M25.462 - Effusion, left knee (2) Fever Assessment/Plan: -concern for septic joint -effusion tapped and sent for gram stain and culture -continue antibiotics as above Code(s): R50.9 - FEVER, UNSPECIFIED Qualifiers: Fever type: unspecified Qualified Code(s): R50.9 - Fever, unspecified (3) Rheumatoid arthritis Assessment/Plan: -received methotrexate on Monday -hold further methotrexate at this time Code(s): M06.9 - RHEUMATOID ARTHRITIS, UNSPECIFIED (4) Dementia Assessment/Plan: -stable -continue home regimen Code(s): F03.90 - UNSPECIFIED DEMENTIA WITHOUT BEHAVIORAL DISTURBANCE Qualifiers: Dementia type: unspecified type Dementia behavioral disturbance: without behavioral disturbance Qualified Code(s): F03.90 - Unspecified dementia without behavioral disturbance (5) Osteoarthritis Assessment/Plan: -tylenol for pain Code(s): M19.90 - UNSPECIFIED OSTEOARTHRITIS, UNSPECIFIED SITE (6) PVD (peripheral vascular disease) Assessment/Plan: -continue pletal Code(s): I73.9 - PERIPHERAL VASCULAR DISEASE, UNSPECIFIED
[2018-02-27] MEDS ORDERED: VANCOMYCIN 1,000 MG in DEXTROSE 5%-WATER - 250 ML IVPB ONE (17:00)
[2018-02-27] MEDS ORDERED: CEFTRIAXONE 2 GM-D5W BAG 2 GM/50 ML BAG IVPB ONE (17:07)
--- NOTE | 2018-02-27 17:07 | EKG ---
Test Reason : Blood Pressure : / mmHG Vent. Rate : 089 BPM Atrial Rate : 089 BPM P-R Int : 156 ms QRS Dur : 076 ms QT Int : 360 ms P-R-T Axes : 047 -10 026 degrees QTc Int : 438 ms POOR DATA QUALITY, INTERPRETATION MAY BE ADVERSELY AFFECTED NORMAL SINUS RHYTHM POSSIBLE ANTERIOR INFARCT , AGE UNDETERMINED ABNORMAL ECG Confirmed by MD SUZIE, AMIE ([id number]) on 02/27/2018 5:07:03 PM Referred By: Confirmed By:AMIE LARSEN MD
[2018-02-27 17:27] LABS: SYNOVIAL FLUID RBC 52677 /mm3; SYNOVIAL FLUID SOURCE KNEE
[2018-02-27] MEDS ORDERED: VANCOMYCIN 1 GRAM (PRE-DOCKED) 1,000 MG/250 ML BAG IVPB ONE (17:33)
[2018-02-27] MEDS ORDERED: CEFTRIAXONE 2 GM/100 ML BAG IVPB ONE (17:33)
[2018-02-27 17:45] LABS: CRYSTALS,SYNOVIAL FLUID POSITIVE
[2018-02-27] MEDS: CEFTRIAXONE 2 GM in DEXTROSE 5%-WATER 100 ML IVPB SCH (17:48)
[2018-02-27 19:14] LABS: SYNOVIAL FLUID MONOCYTES 5 %; SYNOVIAL FLUID NEUTROPHILS 95 %
[2018-02-27 21:13] VITALS: BMI 23.3
[2018-02-27] MEDS ORDERED: PT OWN MED DRAWER 7, Y5N ONE (22:53)
[2018-02-27] MEDS: LACTOBACILLUS ACIDOPHILUS 1 TABLET PO SCH (22:59)
[2018-02-27] MEDS: DOCUSATE SODIUM 100 MG CAPSULE (FP) PO SCH (22:59)
[2018-02-27] MEDS: DONEPEZIL HCL 10 MG TABLET (FP) PO SCH (22:59)
[2018-02-27] MEDS: CILOSTAZOL 100 MG TABLET PO SCH (23:12)
[2018-02-27] MEDS: TIMOLOL 0.5% OU SCH (23:12)
[2018-02-28] MEDS ORDERED: PT OWN MED DRAWER 7, Y5N ONE ×4 (06:39→20:42)
[2018-02-28 07:12] LABS: BASO % 0.3 % (0-2.0); EOS % 0.7 % (0-4.5); HEMATOCRIT 36.6 % (32.4-45.2); LYMPH % 9.4 % (8-40); MCH 31.1 pg (25.7-33.7); MCHC 32.9 g/dl (32.0-36.0); MEAN CELL VOLUME 94.4 fl (80-96); MEAN PLT VOLUME 10.3 fl (7.5-11.1); NEUT % 80.6 % (42.8-82.8); PLATELET COUNT 204 K/MM3 (134-434); RBC 3.87 M/mm3 (3.60-5.2); RDW 12.6 % (11.6-15.6); WHITE BLOOD COUNT 7.9 K/mm3 (4.0-10.0)
[2018-02-28 07:29] LABS: CHLORIDE 105 mmol/L (98-107); POTASSIUM 4.1 mmol/L (3.5-5.1); SODIUM 139 mmol/L (136-145)
[2018-02-28 07:34] LABS: ANION GAP 7 (8-16); BLOOD UREA NITROGEN 9 mg/dL (7-18); CALCIUM 8.6 mg/dL (8.5-10.1); CO2 27 mmol/L (21-32); CREATININE 0.6 mg/dL (0.55-1.02); GLUCOSE,RANDOM 112 mg/dL (74-106); MAGNESIUM 2.1 mg/dL (1.8-2.4); PHOSPHOROUS 2.3 mg/dL (2.5-4.9)
[2018-02-28] MEDS ORDERED: DEXTROSE 5%-WATER 100 ML IVPB ONE (10:23)
[2018-02-28] MEDS: LACTOBACILLUS ACIDOPHILUS 1 TABLET PO SCH (10:25)
[2018-02-28] MEDS: DOCUSATE SODIUM 100 MG CAPSULE (FP) PO SCH ×2 (10:25→22:35)
[2018-02-28] MEDS: FOLIC ACID 1 MG TABLET (FP) PO SCH (10:25)
[2018-02-28] MEDS: ENOXAPARIN NA (PORCINE) 40 MG/0.4 ML DISP.SYRIN SQ SCH (10:25)
[2018-02-28] MEDS: CILOSTAZOL 100 MG TABLET PO SCH ×2 (10:26→22:35)
[2018-02-28] MEDS: TIMOLOL 0.5% OU SCH ×2 (10:28→22:36)
[2018-02-28] MEDS: DONEPEZIL HCL 10 MG TABLET (FP) PO SCH ×2 (10:28→22:35)
--- NOTE | 2018-02-28 12:09 | PN ---
Progress Note, Physician Chief Complaint: Unable to obtain - Current Medication List Current Medications: Active Medications Acetaminophen (Tylenol -) 650 mg PO Q4H PRN PRN Reason: PAIN Cilostazol (Pletal -) 100 mg PO BID [facility] Last Admin: 02/28/18 10:26 Dose: 100 mg Docusate Sodium (Colace -) 100 mg PO BID [facility] Last Admin: 02/28/18 10:25 Dose: 100 mg Donepezil HCl (Aricept -) 10 mg PO BID [facility] Last Admin: 02/28/18 10:28 Dose: 10 mg Enoxaparin Sodium (Lovenox -) 40 mg SQ DAILY [facility] Last Admin: 02/28/18 10:25 Dose: 40 mg Folic Acid (Folic Acid -) 1 mg PO DAILY [facility] Last Admin: 02/28/18 10:25 Dose: 1 mg Ceftriaxone Sodium 2 gm/ (Dextrose) 100 mls @ 200 mls/hr IVPB DAILY [facility] PRN Reason: Protocol Last Admin: 02/27/18 17:48 Dose: 200 mls/hr Vancomycin HCl 1,000 mg/ (Dextrose) 250 mls @ 166.667 mls/hr IVPB Q12H MELE PRN Reason: Protocol Lactobacillus Acidophilus (Bacid -) 1 tab PO DAILY [facility] Last Admin: 02/28/18 10:25 Dose: 1 tab Multivitamins (Total B With C -) 2 each PO DAILY [facility] Ondansetron HCl (Zofran Injection) 4 mg IVPUSH Q6H PRN PRN Reason: NAUSEA Timolol Maleate (Timoptic) 0.3 ml OU BID [facility] Last Admin: 02/28/18 10:28 Dose: 0.3 ml - Objective Vital Signs: Vital Signs Temperature 36.7 C 02/28/18 10:15 Pulse Rate 77 02/28/18 10:15 Respiratory Rate 20 02/28/18 10:15 Blood Pressure 132/63 02/28/18 10:15 O2 Sat by Pulse Oximetry (%) 98 02/27/18 21:00 Constitutional: Yes: Well Nourished, No Distress, Calm Cardiovascular: Yes: Regular Rate and Rhythm. No: Gallop, Murmur, Rub Respiratory: Yes: Regular, CTA Bilaterally. No: Rales, Rhonchi, Wheezes Gastrointestinal: Yes: Normal Bowel Sounds, Soft. No: Distention, Tenderness Extremities: Yes: WNL Edema: LLE: Trace (patella) Labs: CBC, BMP 02/28/18 06:50 02/28/18 06:50 INR, PTT INR 1.16 (0.82-1.09) H 02/27/18 14:24 Problem List - Problems (1) Effusion of patella Code(s): M25.469 - EFFUSION, UNSPECIFIED KNEE Qualifiers: Laterality: left Qualified Code(s): M25.462 - Effusion, left knee (2) Fever Code(s): R50.9 - FEVER, UNSPECIFIED Qualifiers: Fever type: unspecified Qualified Code(s): R50.9 - Fever, unspecified (3) Rheumatoid arthritis Code(s): M06.9 - RHEUMATOID ARTHRITIS, UNSPECIFIED (4) Dementia Code(s): F03.90 - UNSPECIFIED DEMENTIA WITHOUT BEHAVIORAL DISTURBANCE Qualifiers: Dementia type: unspecified type Dementia behavioral disturbance: without behavioral disturbance Qualified Code(s): F03.90 - Unspecified dementia without behavioral disturbance (5) HTN (hypertension) Code(s): I10 - ESSENTIAL (PRIMARY) HYPERTENSION (6) Hyperlipidemia Code(s): E78.5 - HYPERLIPIDEMIA, UNSPECIFIED (7) Osteoarthritis Code(s): M19.90 - UNSPECIFIED OSTEOARTHRITIS, UNSPECIFIED SITE (8) PVD (peripheral vascular disease) Code(s): I73.9 - PERIPHERAL VASCULAR DISEASE, UNSPECIFIED Assessment/Plan (1) Effusion of patella Assessment/Plan: -s/p drainage of effusion -appreciate ID and ortho assistance -fever and elevated WBCs still concerning -continue vancomycin and zosyn -would wait for ID to clear for steroid injection if appropriate at all Code(s): M25.469 - EFFUSION, UNSPECIFIED KNEE Qualifiers: Laterality: left Qualified Code(s): M25.462 - Effusion, left knee (2) Fever Assessment/Plan: -as above -appreciate ID assistance -has not recurred Code(s): R50.9 - FEVER, UNSPECIFIED Qualifiers: Fever type: unspecified Qualified Code(s): R50.9 - Fever, unspecified (3) Rheumatoid arthritis Assessment/Plan: -received methotrexate on Monday -hold further methotrexate at this time Code(s): M06.9 - RHEUMATOID ARTHRITIS, UNSPECIFIED (4) Dementia Assessment/Plan: -stable -continue home regimen Code(s): F03.90 - UNSPECIFIED DEMENTIA WITHOUT BEHAVIORAL DISTURBANCE Qualifiers: Dementia type: unspecified type Dementia behavioral disturbance: without behavioral disturbance Qualified Code(s): F03.90 - Unspecified dementia without behavioral disturbance (5) Osteoarthritis Assessment/Plan: -tylenol for pain Code(s): M19.90 - UNSPECIFIED OSTEOARTHRITIS, UNSPECIFIED SITE (6) PVD (peripheral vascular disease) Assessment/Plan: -continue pletal Code(s): I73.9 - PERIPHERAL VASCULAR DISEASE, UNSPECIFIED
--- NOTE | 2018-02-28 12:43 | CON.ORTH ---
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: Yes: Dementia Cardio/Vascular: Yes: Hyperlipdemia, Other (PVD) ...: No Rheumatology: Yes: Rheumatoid Arthritis - Alcohol/Substance Use Hx Alcohol Use: No History of Substance Use: reports: None - Smoking History Smoking history: Never smoked Have you smoked in the past 12 months: No Aproximately how many cigarettes per day: 0 - Social History ADL: Family Assistance History of Recent Travel: No Home Medications - Allergies Allergies/Adverse Reactions: Allergies Allergy/AdvReac Type Severity Reaction Status Date / Time No Known Drug Allergies Allergy Verified 02/27/18 12:58 shellfish derived AdvReac Mild Itching Verified 02/27/18 12:58 - Home Medications Home Medications: Ambulatory Orders Donepezil HCl 10 mg PO BID 01/04/16 Timolol 0.5% [Timoptic] 1 drop OU BID 02/05/16 Folic Acid 1 mg PO DAILY 06/20/16 Gabapentin 300 mg PO PRN 10/25/16 Vitamin B Complex 2 each PO DAILY 06/27/17 Alendronate Na [Fosamax] 70 mg PO Q7D 02/27/18 Cilostazol [Pletal -] 100 mg PO BID 02/27/18 Methotrexate [Mexate -] 2.5 mg PO Q7D 02/27/18 Family Disease History - Family Disease History Family Disease History: Other: Brother (dementia) Physical Exam for Ortho Vital Signs: Vital Signs Temperature 98.1 F 02/28/18 10:15 Pulse Rate 77 02/28/18 10:15 Respiratory Rate 20 02/28/18 10:15 Blood Pressure 132/63 02/28/18 10:15 O2 Sat by Pulse Oximetry (%) 98 02/27/18 21:00 Labs: CBC, BMP 02/28/18 06:50 02/28/18 06:50 INR, PTT INR 1.16 (0.82-1.09) H 02/27/18 14:24 - Lower Extremity Knee: Yes: Left, Pain, Swelling, Tenderness, Other (2+ effusion, ROM 2-100, able to SLR, calf soft, nt, nvi) Imaging - Results X-ray: Report Reviewed, Image Reviewed Assessment/Plan 82 year old female with a significant past medical history of TIA, rheumatoid arthritis, hypertension, hyperlipidemia, and Alzheimer's who presented to the emergency department for evaluation of left knee edema. The patient's daughter reports finding the patient on the floor near her bed lying on her back. The knee was aspirated in the ED which was + for pseudogout. Cultures are neg at this point. a/p- left knee pseudogout d/w pts family in detail Family would like to hold off on another aspiration and injection of cortisone today Recommend colchicine daily PT eval wbat if no improvement will aspirate and inject cortisone d/w Dr. Tejada
--- NOTE | 2018-02-28 13:31 | CON.ID ---
Consult Consult Specialty:: infectious diseases Referred by:: Reason for Consultation:: cellulitits and swellin of the left knee - History of Present Illness History of Present Illness: 82 year old female with dementia who was brought in by her daughter .according to the daughter patient suddenly started limping on the left side which was associated with swelling and redness and warmth of the left knee joint.Patient then had a fall and the patient was brought to the hospital. patient was then seen by ortho and they aspirated the knee joint currently family in room and also according to the daughter patient has detoriated from her baseline. 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 Cardio/Vascular: Yes: Hyperlipdemia, Other (PVD) ...: No Rheumatology: Yes: Rheumatoid Arthritis - Alcohol/Substance Use Hx Alcohol Use: No History of Substance Use: reports: None - Smoking History Smoking history: Never smoked Have you smoked in the past 12 months: No Aproximately how many cigarettes per day: 0 - Social History ADL: Family Assistance History of Recent Travel: No Home Medications - Allergies Allergies/Adverse Reactions: Allergies Allergy/AdvReac Type Severity Reaction Status Date / Time No Known Drug Allergies Allergy Verified 02/27/18 12:58 shellfish derived AdvReac Mild Itching Verified 02/27/18 12:58 - Home Medications Home Medications: Ambulatory Orders Donepezil HCl 10 mg PO BID 01/04/16 Timolol 0.5% [Timoptic] 1 drop OU BID 02/05/16 Folic Acid 1 mg PO DAILY 06/20/16 Gabapentin 300 mg PO PRN 10/25/16 Vitamin B Complex 2 each PO DAILY 06/27/17 Alendronate Na [Fosamax] 70 mg PO Q7D 02/27/18 Cilostazol [Pletal -] 100 mg PO BID 02/27/18 Methotrexate [Mexate -] 2.5 mg PO Q7D 02/27/18 Family Disease History - Family Disease History Family Disease History: Other: Brother (dementia) Review of Systems Unable to obtain ROS, reason: unable to obtain Physical Exam Vital Signs: Vital Signs Temperature 98.1 F 02/28/18 10:15 Pulse Rate 77 02/28/18 10:15 Respiratory Rate 20 02/28/18 10:15 Blood Pressure 132/63 02/28/18 10:15 O2 Sat by Pulse Oximetry (%) 98 02/27/18 21:00 Constitutional: Yes: Well Nourished, Calm, Mild Distress Cardiovascular: Yes: Regular Rate and Rhythm Respiratory: Yes: Regular, CTA Bilaterally Gastrointestinal: Yes: Normal Bowel Sounds, Soft Musculoskeletal: Yes: Other Extremities: Yes: Erythema (left knee joint) Neurological: Yes: Alert, Other (dementia) Psychiatric: Yes: Alert Labs: CBC, BMP 02/28/18 06:50 02/28/18 06:50 Imaging - Results Chest X-ray: Report Reviewed, Image Reviewed X-ray: Report Reviewed, Image Reviewed Cat Scan: Report Reviewed, Image Reviewed Assessment/Plan Problem List - Problems (1) Effusion of patella Code(s): M25.469 - EFFUSION, UNSPECIFIED KNEE Qualifiers: Laterality: left Qualified Code(s): M25.462 - Effusion, left knee (2) Fever Code(s): R50.9 - FEVER, UNSPECIFIED (3) Rheumatoid arthritis Code(s): M06.9 - RHEUMATOID ARTHRITIS, UNSPECIFIED (4) Dementia Code(s): F03.90 - UNSPECIFIED DEMENTIA WITHOUT BEHAVIORAL DISTURBANCE Qualifiers: Dementia type: unspecified type Dementia behavioral disturbance: without behavioral disturbance Qualified Code(s): F03.90 - Unspecified dementia without behavioral disturbance (5) HTN (hypertension) Code(s): I10 - ESSENTIAL (PRIMARY) HYPERTENSION (6) Hyperlipidemia Code(s): E78.5 - HYPERLIPIDEMIA, UNSPECIFIED (7) Osteoarthritis Code(s): M19.90 - UNSPECIFIED OSTEOARTHRITIS, UNSPECIFIED SITE (8) PVD (peripheral vascular disease) Code(s): I73.9 - PERIPHERAL VASCULAR DISEASE, UNSPECIFIED looking at the history i am also worried that the patient could have a septic joint patient has been started on vanco and ceftriaxone plan await for cx we will continue current mgmt might have to escalate abx knee rest ortho on case
[2018-02-28] MEDS: COLCHICINE 0.6 MG TABLET (FP) PO SCH (13:42)
[2018-02-28] MEDS: CEFTRIAXONE 2 GM in DEXTROSE 5%-WATER 100 ML IVPB SCH (15:43)
[2018-02-28] MEDS: VANCOMYCIN 1,250 MG in DEXTROSE 5%-WATER - 250 ML IVPB SCH (18:05)
[2018-02-28] MEDS ORDERED: INSULIN (NOVOLOG) ASPART 100 UNITS/ML 10ML VIAL ONE (18:48)
[2018-02-28] MEDS: NAPH,MB-DB/K PH,MBDB POWDER PACKET PO SCH (22:35)
[2018-02-28] MEDS: VITAMIN B COMPLEX W/C COMBO TABLET (FP) PO SCH (22:35)
[2018-03-01] MEDS: NAPH,MB-DB/K PH,MBDB POWDER PACKET PO SCH ×3 (06:29→21:25)
[2018-03-01 08:14] LABS: BASO % 0.6 % (0-2.0); EOS % 1.4 % (0-4.5); HEMATOCRIT 37.4 % (32.4-45.2); HEMOGLOBIN 12.4 GM/dL (10.7-15.3); LYMPH % 13.6 % (8-40); MCH 31.4 pg (25.7-33.7); MCHC 33.3 g/dl (32.0-36.0); MEAN CELL VOLUME 94.3 fl (80-96); MEAN PLT VOLUME 10.4 fl (7.5-11.1); MONO % 10.4 % (3.8-10.2); PLATELET COUNT 236 K/MM3 (134-434); RBC 3.96 M/mm3 (3.60-5.2); RDW 12.5 % (11.6-15.6); WHITE BLOOD COUNT 7.2 K/mm3 (4.0-10.0)
[2018-03-01 08:33] LABS: ANION GAP 5 (8-16); BLOOD UREA NITROGEN 8 mg/dL (7-18); CALCIUM 8.6 mg/dL (8.5-10.1); CHLORIDE 103 mmol/L (98-107); CO2 31 mmol/L (21-32); CREATININE 0.6 mg/dL (0.55-1.02); GLUCOSE,RANDOM 124 mg/dL (74-106); MAGNESIUM 2.2 mg/dL (1.8-2.4); PHOSPHOROUS 2.6 mg/dL (2.5-4.9); SODIUM 139 mmol/L (136-145)
--- NOTE | 2018-03-01 09:27 | PN ---
Progress Note (short form) - Note Progress Note: Pt seen, left knee examined. Still swollen, mild. No tense effusion. Not tender No erythema Overall pt's left knee looks good. She can WBAT, ROM as tolerated I would not recommend anything else at this time if she doesn't c/o pain. Can DC from an ortho pov
[2018-03-01] MEDS ORDERED: DEXTROSE 5%-WATER 100 ML IVPB ONE ×2 (09:31→09:59)
[2018-03-01] MEDS ORDERED: PT OWN MED DRAWER 7, Y5N ONE ×4 (09:31→21:28)
[2018-03-01] MEDS: FOLIC ACID 1 MG TABLET (FP) PO SCH (09:50)
[2018-03-01] MEDS: DONEPEZIL HCL 10 MG TABLET (FP) PO SCH ×2 (09:51→21:25)
[2018-03-01] MEDS: DOCUSATE SODIUM 100 MG CAPSULE (FP) PO SCH ×2 (09:51→21:25)
[2018-03-01] MEDS: LACTOBACILLUS ACIDOPHILUS 1 TABLET PO SCH (09:51)
[2018-03-01] MEDS: ENOXAPARIN NA (PORCINE) 40 MG/0.4 ML DISP.SYRIN SQ SCH (10:00)
[2018-03-01] MEDS: CILOSTAZOL 100 MG TABLET PO SCH ×2 (10:01→21:25)
[2018-03-01] MEDS: COLCHICINE 0.6 MG TABLET (FP) PO SCH (10:01)
[2018-03-01] MEDS: VITAMIN B COMPLEX W/C COMBO TABLET (FP) PO SCH (10:02)
[2018-03-01] MEDS: TIMOLOL 0.5% OU SCH ×2 (10:03→21:29)
[2018-03-01] MEDS: CEFTRIAXONE 2 GM in DEXTROSE 5%-WATER 100 ML IVPB SCH (10:04)
--- NOTE | 2018-03-01 14:30 | PN ---
Progress Note, Physician Chief Complaint: Unable to obtain - Current Medication List Current Medications: Active Medications Acetaminophen (Tylenol -) 650 mg PO Q4H PRN PRN Reason: PAIN Last Admin: 02/28/18 13:46 Dose: 650 mg Cilostazol (Pletal -) 100 mg PO BID [facility] Last Admin: 03/01/18 10:01 Dose: 100 mg Colchicine (Colcrys -) 0.6 mg PO DAILY [facility] Last Admin: 03/01/18 10:01 Dose: 0.6 mg Docusate Sodium (Colace -) 100 mg PO BID [facility] Last Admin: 03/01/18 09:51 Dose: 100 mg Donepezil HCl (Aricept -) 10 mg PO BID [facility] Last Admin: 03/01/18 09:51 Dose: 10 mg Enoxaparin Sodium (Lovenox -) 40 mg SQ DAILY [facility] Last Admin: 03/01/18 10:00 Dose: 40 mg Folic Acid (Folic Acid -) 1 mg PO DAILY [facility] Last Admin: 03/01/18 09:50 Dose: 1 mg Ceftriaxone Sodium 2 gm/ (Dextrose) 100 mls @ 200 mls/hr IVPB DAILY [facility] PRN Reason: Protocol Last Admin: 03/01/18 10:04 Dose: 200 mls/hr Vancomycin HCl 1,250 mg/ (Dextrose) 250 mls @ 250 mls/2 hr IVPB DAILY@1800 [facility] PRN Reason: Protocol Last Admin: 02/28/18 18:05 Dose: 250 mls/2 hr Lactobacillus Acidophilus (Bacid -) 1 tab PO DAILY [facility] Last Admin: 03/01/18 09:51 Dose: 1 tab Multivitamins (Total B With C -) 2 each PO DAILY [facility] Last Admin: 03/01/18 10:02 Dose: 2 each Ondansetron HCl (Zofran Injection) 4 mg IVPUSH Q6H PRN PRN Reason: NAUSEA Potassium Phos/Sodium Phos (Phos-Nak Packet -) 1 packet PO TID [facility] Last Admin: 03/01/18 06:29 Dose: 1 packet Timolol Maleate (Timoptic) 0.3 ml OU BID [facility] Last Admin: 03/01/18 10:03 Dose: 0.3 ml - Objective Vital Signs: Vital Signs Temperature 36.4 C L 03/01/18 06:00 Pulse Rate 77 03/01/18 06:00 Respiratory Rate 18 05/17/18 06:00 Blood Pressure 148/78 03/01/18 06:00 O2 Sat by Pulse Oximetry (%) 97 02/28/18 21:00 Constitutional: Yes: Well Nourished, No Distress, Calm Cardiovascular: Yes: Regular Rate and Rhythm. No: Gallop, Murmur, Rub Respiratory: Yes: Regular, CTA Bilaterally. No: Rales, Rhonchi, Wheezes Gastrointestinal: Yes: Normal Bowel Sounds, Soft. No: Distention, Tenderness Extremities: Yes: WNL Edema: Yes Edema: LLE: 1+ (patella) Labs: CBC, BMP 03/01/18 07:30 03/01/18 07:30 INR, PTT INR 1.16 (0.82-1.09) H 02/27/18 14:24 Problem List - Problems (1) Effusion of patella Code(s): M25.469 - EFFUSION, UNSPECIFIED KNEE Qualifiers: Laterality: left Qualified Code(s): M25.462 - Effusion, left knee (2) Fever Code(s): R50.9 - FEVER, UNSPECIFIED Qualifiers: Fever type: unspecified Qualified Code(s): R50.9 - Fever, unspecified (3) Rheumatoid arthritis Code(s): M06.9 - RHEUMATOID ARTHRITIS, UNSPECIFIED (4) Dementia Code(s): F03.90 - UNSPECIFIED DEMENTIA WITHOUT BEHAVIORAL DISTURBANCE Qualifiers: Dementia type: unspecified type Dementia behavioral disturbance: without behavioral disturbance Qualified Code(s): F03.90 - Unspecified dementia without behavioral disturbance (5) HTN (hypertension) Code(s): I10 - ESSENTIAL (PRIMARY) HYPERTENSION (6) Hyperlipidemia Code(s): E78.5 - HYPERLIPIDEMIA, UNSPECIFIED (7) Osteoarthritis Code(s): M19.90 - UNSPECIFIED OSTEOARTHRITIS, UNSPECIFIED SITE (8) PVD (peripheral vascular disease) Code(s): I73.9 - PERIPHERAL VASCULAR DISEASE, UNSPECIFIED Assessment/Plan (1) Effusion of patella Assessment/Plan: -s/p drainage of effusion -appreciate ID and ortho assistance -continue vancomycin and zosyn -follow up culture results Code(s): M25.469 - EFFUSION, UNSPECIFIED KNEE Qualifiers: Laterality: left Qualified Code(s): M25.462 - Effusion, left knee (2) Fever Assessment/Plan: -as above -appreciate ID assistance -has not recurred Code(s): R50.9 - FEVER, UNSPECIFIED Qualifiers: Fever type: unspecified Qualified Code(s): R50.9 - Fever, unspecified (3) Rheumatoid arthritis Assessment/Plan: -received methotrexate on Monday -hold further methotrexate at this time Code(s): M06.9 - RHEUMATOID ARTHRITIS, UNSPECIFIED (4) Dementia Assessment/Plan: -stable -continue home regimen Code(s): F03.90 - UNSPECIFIED DEMENTIA WITHOUT BEHAVIORAL DISTURBANCE Qualifiers: Dementia type: unspecified type Dementia behavioral disturbance: without behavioral disturbance Qualified Code(s): F03.90 - Unspecified dementia without behavioral disturbance (5) Osteoarthritis Assessment/Plan: -tylenol for pain Code(s): M19.90 - UNSPECIFIED OSTEOARTHRITIS, UNSPECIFIED SITE (6) PVD (peripheral vascular disease) Assessment/Plan: -continue pletal Code(s): I73.9 - PERIPHERAL VASCULAR DISEASE, UNSPECIFIED (7) Insomnia -concern for insomnia and possible sundowning -trial of ativan prn at night
[2018-03-01] MEDS ORDERED: LORazepam 1 MG TABLET PO PRN (14:55)
[2018-03-01] MEDS ORDERED: LORazepam 0.5 MG TABLET PO PRN (14:59)
--- NOTE | 2018-03-01 15:03 | PN ---
Progress Note, Physician History of Present Illness: patient looks much more awake and alert calm comfortable - Current Medication List Current Medications: Active Medications Acetaminophen (Tylenol -) 650 mg PO Q4H PRN PRN Reason: PAIN Last Admin: 02/28/18 13:46 Dose: 650 mg Cilostazol (Pletal -) 100 mg PO BID [facility] Last Admin: 03/01/18 10:01 Dose: 100 mg Colchicine (Colcrys -) 0.6 mg PO DAILY [facility] Last Admin: 03/01/18 10:01 Dose: 0.6 mg Docusate Sodium (Colace -) 100 mg PO BID [facility] Last Admin: 03/01/18 09:51 Dose: 100 mg Donepezil HCl (Aricept -) 10 mg PO BID [facility] Last Admin: 03/01/18 09:51 Dose: 10 mg Enoxaparin Sodium (Lovenox -) 40 mg SQ DAILY [facility] Last Admin: 03/01/18 10:00 Dose: 40 mg Folic Acid (Folic Acid -) 1 mg PO DAILY [facility] Last Admin: 03/01/18 09:50 Dose: 1 mg Ceftriaxone Sodium 2 gm/ (Dextrose) 100 mls @ 200 mls/hr IVPB DAILY [facility] PRN Reason: Protocol Last Admin: 03/01/18 10:04 Dose: 200 mls/hr Vancomycin HCl 1,250 mg/ (Dextrose) 250 mls @ 250 mls/2 hr IVPB DAILY@1800 [facility] PRN Reason: Protocol Last Admin: 02/28/18 18:05 Dose: 250 mls/2 hr Lactobacillus Acidophilus (Bacid -) 1 tab PO DAILY [facility] Last Admin: 03/01/18 09:51 Dose: 1 tab Lorazepam (Ativan -) 0.5 mg PO HS PRN PRN Reason: INSOMNIA Multivitamins (Total B With C -) 2 each PO DAILY [facility] Last Admin: 03/01/18 10:02 Dose: 2 each Ondansetron HCl (Zofran Injection) 4 mg IVPUSH Q6H PRN PRN Reason: NAUSEA Potassium Phos/Sodium Phos (Phos-Nak Packet -) 1 packet PO TID [facility] Stop: 03/02/18 23:59 Last Admin: 03/01/18 14:34 Dose: 1 packet Timolol Maleate (Timoptic) 0.3 ml OU BID [facility] Last Admin: 03/01/18 10:03 Dose: 0.3 ml - Objective Vital Signs: Vital Signs Temperature 97.5 F L 03/01/18 06:00 Pulse Rate 77 03/01/18 06:00 Respiratory Rate 18 03/01/18 06:00 Blood Pressure 148/78 03/01/18 06:00 O2 Sat by Pulse Oximetry (%) 97 02/28/18 21:00 Constitutional: Yes: No Distress, Calm Cardiovascular: Yes: Regular Rate and Rhythm Respiratory: Yes: Regular, CTA Bilaterally Gastrointestinal: Yes: Normal Bowel Sounds, Soft Musculoskeletal: Yes: Other Extremities: Yes: Other (knee swelling) Neurological: Yes: Alert, Other (dementia) Psychiatric: Yes: Alert Labs: CBC, BMP 03/01/18 07:30 03/01/18 07:30 INR, PTT INR 1.16 (0.82-1.09) H 02/27/18 14:24 Assessment/Plan Problem List - Problems (1) Effusion of patella Code(s): M25.469 - EFFUSION, UNSPECIFIED KNEE Qualifiers: Laterality: left Qualified Code(s): M25.462 - Effusion, left knee (2) Fever Code(s): R50.9 - FEVER, UNSPECIFIED (3) Rheumatoid arthritis Code(s): M06.9 - RHEUMATOID ARTHRITIS, UNSPECIFIED (4) Dementia Code(s): F03.90 - UNSPECIFIED DEMENTIA WITHOUT BEHAVIORAL DISTURBANCE Qualifiers: Dementia type: unspecified type Dementia behavioral disturbance: without behavioral disturbance Qualified Code(s): F03.90 - Unspecified dementia without behavioral disturbance (5) HTN (hypertension) Code(s): I10 - ESSENTIAL (PRIMARY) HYPERTENSION (6) Hyperlipidemia Code(s): E78.5 - HYPERLIPIDEMIA, UNSPECIFIED (7) Osteoarthritis Code(s): M19.90 - UNSPECIFIED OSTEOARTHRITIS, UNSPECIFIED SITE (8) PVD (peripheral vascular disease) Code(s): I73.9 - PERIPHERAL VASCULAR DISEASE, UNSPECIFIED looking at the history i am also worried that the patient could have a septic joint patient has been started on vanco and ceftriaxone plan await for cx we will continue current mgmt patient stable knee rest ortho on case
[2018-03-01] MEDS: VANCOMYCIN 1,250 MG in DEXTROSE 5%-WATER - 250 ML IVPB SCH (17:25)
[2018-03-02] MEDS: NAPH,MB-DB/K PH,MBDB POWDER PACKET PO SCH ×2 (06:31→14:55)
[2018-03-02 07:18] LABS: BASO % 0.4 % (0-2.0); EOS % 2.2 % (0-4.5); HEMATOCRIT 36.6 % (32.4-45.2); HEMOGLOBIN 12.1 GM/dL (10.7-15.3); LYMPH % 20.1 % (8-40); MCH 31.2 pg (25.7-33.7); MCHC 33.2 g/dl (32.0-36.0); MEAN CELL VOLUME 94.1 fl (80-96); NEUT % 65.3 % (42.8-82.8); PLATELET COUNT 235 K/MM3 (134-434); RBC 3.89 M/mm3 (3.60-5.2); RDW 12.2 % (11.6-15.6); WHITE BLOOD COUNT 5.2 K/mm3 (4.0-10.0)
[2018-03-02 08:02] LABS: ANION GAP 7 (8-16); BLOOD UREA NITROGEN 8 mg/dL (7-18); CALCIUM 8.6 mg/dL (8.5-10.1); CHLORIDE 102 mmol/L (98-107); CO2 31 mmol/L (21-32); CREATININE 0.7 mg/dL (0.55-1.02); GLUCOSE,RANDOM 118 mg/dL (74-106); MAGNESIUM 2.3 mg/dL (1.8-2.4); PHOSPHOROUS 3.2 mg/dL (2.5-4.9); POTASSIUM 3.8 mmol/L (3.5-5.1); SODIUM 140 mmol/L (136-145)
--- NOTE | 2018-03-02 08:39 | PN ---
Progress Note (short form) - Note Progress Note: Ortho Pt seen and examined- feeling better Selected Entries 03/02/18 06:00 Temperature 97.4 F L Pulse Rate 77 Respiratory 18 Rate Blood Pressure 124/76 Laboratory Tests 03/02/18 06:50 WBC 5.2 Hgb 12.1 Hct 36.6 Plt Count 235 1+ effusion, no erythema, minimal ttp, rom 2-100 calf soft, nt, nvi a/p continue colchicine PT wbat ok to d/c from ortho pov d/w Dr. Huizar
[2018-03-02] MEDS ORDERED: PT OWN MED DRAWER 7, Y5N ONE (10:57)
[2018-03-02] MEDS ORDERED: DEXTROSE 5%-WATER 100 ML IVPB ONE (10:57)
[2018-03-02] MEDS: CEFTRIAXONE 2 GM in DEXTROSE 5%-WATER 100 ML IVPB SCH (11:09)
[2018-03-02] MEDS: COLCHICINE 0.6 MG TABLET (FP) PO SCH (11:12)
[2018-03-02] MEDS: DONEPEZIL HCL 10 MG TABLET (FP) PO SCH (11:12)
[2018-03-02] MEDS: LACTOBACILLUS ACIDOPHILUS 1 TABLET PO SCH (11:12)
[2018-03-02] MEDS: DOCUSATE SODIUM 100 MG CAPSULE (FP) PO SCH (11:12)
[2018-03-02] MEDS: FOLIC ACID 1 MG TABLET (FP) PO SCH (11:12)
[2018-03-02] MEDS: ENOXAPARIN NA (PORCINE) 40 MG/0.4 ML DISP.SYRIN SQ SCH (11:13)
[2018-03-02] MEDS: VITAMIN B COMPLEX W/C COMBO TABLET (FP) PO SCH (11:13)
[2018-03-02] MEDS: CILOSTAZOL 100 MG TABLET PO SCH (11:13)
--- NOTE | 2018-03-02 11:30 | PN ---
Progress Note, Physician Chief Complaint: Unable to obtain, daughter says looks better today. - Current Medication List Current Medications: Active Medications Acetaminophen (Tylenol -) 650 mg PO Q4H PRN PRN Reason: PAIN Last Admin: 02/28/18 13:46 Dose: 650 mg Cilostazol (Pletal -) 100 mg PO BID [facility] Last Admin: 03/02/18 11:13 Dose: 100 mg Colchicine (Colcrys -) 0.6 mg PO DAILY [facility] Last Admin: 03/02/18 11:12 Dose: 0.6 mg Docusate Sodium (Colace -) 100 mg PO BID [facility] Last Admin: 03/02/18 11:12 Dose: 100 mg Donepezil HCl (Aricept -) 10 mg PO BID [facility] Last Admin: 03/02/18 11:12 Dose: 10 mg Enoxaparin Sodium (Lovenox -) 40 mg SQ DAILY [facility] Last Admin: 03/02/18 11:13 Dose: 40 mg Folic Acid (Folic Acid -) 1 mg PO DAILY [facility] Last Admin: 03/02/18 11:12 Dose: 1 mg Ceftriaxone Sodium 2 gm/ (Dextrose) 100 mls @ 200 mls/hr IVPB DAILY [facility] PRN Reason: Protocol Last Admin: 03/02/18 11:09 Dose: 200 mls/hr Vancomycin HCl 1,250 mg/ (Dextrose) 250 mls @ 250 mls/2 hr IVPB DAILY@1800 [facility] PRN Reason: Protocol Last Admin: 03/01/18 17:25 Dose: 250 mls/2 hr Lactobacillus Acidophilus (Bacid -) 1 tab PO DAILY [facility] Last Admin: 03/02/18 11:12 Dose: 1 tab Lorazepam (Ativan -) 0.5 mg PO HS PRN PRN Reason: INSOMNIA Last Admin: 03/01/18 21:25 Dose: 0.5 mg Multivitamins (Total B With C -) 2 each PO DAILY [facility] Last Admin: 03/02/18 11:13 Dose: 2 each Ondansetron HCl (Zofran Injection) 4 mg IVPUSH Q6H PRN PRN Reason: NAUSEA Potassium Phos/Sodium Phos (Phos-Nak Packet -) 1 packet PO TID [facility] Stop: 03/02/18 23:59 Last Admin: 03/02/18 06:31 Dose: 1 packet Timolol Maleate (Timoptic) 0.3 ml OU BID [facility] Last Admin: 03/01/18 21:29 Dose: 0.3 ml - Objective Vital Signs: Vital Signs Temperature 36.3 C L 03/02/18 06:00 Pulse Rate 77 03/02/18 06:00 Respiratory Rate 18 03/02/18 06:00 Blood Pressure 124/76 03/02/18 06:00 O2 Sat by Pulse Oximetry (%) 98 03/01/18 21:00 Constitutional: Yes: Well Nourished, No Distress, Calm Cardiovascular: Yes: Regular Rate and Rhythm. No: Gallop, Murmur, Rub Respiratory: Yes: Regular, CTA Bilaterally. No: Rales, Rhonchi, Wheezes Gastrointestinal: Yes: Normal Bowel Sounds, Soft. No: Distention, Tenderness Extremities: Yes: WNL Edema: Yes Edema: LLE: Trace (patella) Labs: CBC, BMP 03/02/18 06:50 03/02/18 06:50 INR, PTT INR 1.16 (0.82-1.09) H 02/27/18 14:24 Problem List - Problems (1) Effusion of patella Code(s): M25.469 - EFFUSION, UNSPECIFIED KNEE Qualifiers: Laterality: left Qualified Code(s): M25.462 - Effusion, left knee (2) Fever Code(s): R50.9 - FEVER, UNSPECIFIED Qualifiers: Fever type: unspecified Qualified Code(s): R50.9 - Fever, unspecified (3) Rheumatoid arthritis Code(s): M06.9 - RHEUMATOID ARTHRITIS, UNSPECIFIED (4) Dementia Code(s): F03.90 - UNSPECIFIED DEMENTIA WITHOUT BEHAVIORAL DISTURBANCE Qualifiers: Dementia type: unspecified type Dementia behavioral disturbance: without behavioral disturbance Qualified Code(s): F03.90 - Unspecified dementia without behavioral disturbance (5) HTN (hypertension) Code(s): I10 - ESSENTIAL (PRIMARY) HYPERTENSION (6) Hyperlipidemia Code(s): E78.5 - HYPERLIPIDEMIA, UNSPECIFIED (7) Osteoarthritis Code(s): M19.90 - UNSPECIFIED OSTEOARTHRITIS, UNSPECIFIED SITE (8) PVD (peripheral vascular disease) Code(s): I73.9 - PERIPHERAL VASCULAR DISEASE, UNSPECIFIED Assessment/Plan (1) Effusion of patella Assessment/Plan: -s/p drainage of effusion -appreciate ID and ortho assistance -case d/w ID -vancomycin stopped -awaiting cultures to decide about rocephin Code(s): M25.469 - EFFUSION, UNSPECIFIED KNEE Qualifiers: Laterality: left Qualified Code(s): M25.462 - Effusion, left knee (2) Fever Assessment/Plan: -as above -appreciate ID assistance -has not recurred Code(s): R50.9 - FEVER, UNSPECIFIED Qualifiers: Fever type: unspecified Qualified Code(s): R50.9 - Fever, unspecified (3) Rheumatoid arthritis Assessment/Plan: -received methotrexate on Monday -hold further methotrexate at this time Code(s): M06.9 - RHEUMATOID ARTHRITIS, UNSPECIFIED (4) Dementia Assessment/Plan: -stable -continue home regimen Code(s): F03.90 - UNSPECIFIED DEMENTIA WITHOUT BEHAVIORAL DISTURBANCE Qualifiers: Dementia type: unspecified type Dementia behavioral disturbance: without behavioral disturbance Qualified Code(s): F03.90 - Unspecified dementia without behavioral disturbance (5) Osteoarthritis Assessment/Plan: -tylenol for pain Code(s): M19.90 - UNSPECIFIED OSTEOARTHRITIS, UNSPECIFIED SITE (6) PVD (peripheral vascular disease) Assessment/Plan: -continue pletal Code(s): I73.9 - PERIPHERAL VASCULAR DISEASE, UNSPECIFIED (7) Insomnia -continue low dose ativan qhs prn
--- NOTE | 2018-03-02 13:02 | PN ---
Progress Note, Physician History of Present Illness: stable no new issues knee looking much better - Current Medication List Current Medications: Active Medications Acetaminophen (Tylenol -) 650 mg PO Q4H PRN PRN Reason: PAIN Last Admin: 02/28/18 13:46 Dose: 650 mg Cilostazol (Pletal -) 100 mg PO BID [facility] Last Admin: 03/02/18 11:13 Dose: 100 mg Colchicine (Colcrys -) 0.6 mg PO DAILY [facility] Last Admin: 03/02/18 11:12 Dose: 0.6 mg Docusate Sodium (Colace -) 100 mg PO BID [facility] Last Admin: 03/02/18 11:12 Dose: 100 mg Donepezil HCl (Aricept -) 10 mg PO BID [facility] Last Admin: 03/02/18 11:12 Dose: 10 mg Enoxaparin Sodium (Lovenox -) 40 mg SQ DAILY [facility] Last Admin: 03/02/18 11:13 Dose: 40 mg Folic Acid (Folic Acid -) 1 mg PO DAILY [facility] Last Admin: 03/02/18 11:12 Dose: 1 mg Ceftriaxone Sodium 2 gm/ (Dextrose) 100 mls @ 200 mls/hr IVPB DAILY [facility] PRN Reason: Protocol Last Admin: 03/02/18 11:09 Dose: 200 mls/hr Lactobacillus Acidophilus (Bacid -) 1 tab PO DAILY [facility] Last Admin: 03/02/18 11:12 Dose: 1 tab Lorazepam (Ativan -) 0.5 mg PO HS PRN PRN Reason: INSOMNIA Last Admin: 03/01/18 21:25 Dose: 0.5 mg Multivitamins (Total B With C -) 2 each PO DAILY [facility] Last Admin: 03/02/18 11:13 Dose: 2 each Ondansetron HCl (Zofran Injection) 4 mg IVPUSH Q6H PRN PRN Reason: NAUSEA Potassium Phos/Sodium Phos (Phos-Nak Packet -) 1 packet PO TID [facility] Stop: 03/02/18 23:59 Last Admin: 03/02/18 06:31 Dose: 1 packet Timolol Maleate (Timoptic) 0.3 ml OU BID [facility] Last Admin: 03/01/18 21:29 Dose: 0.3 ml - Objective Vital Signs: Vital Signs Temperature 97.4 F L 03/02/18 06:00 Pulse Rate 77 03/02/18 06:00 Respiratory Rate 18 03/02/18 06:00 Blood Pressure 124/76 03/02/18 06:00 O2 Sat by Pulse Oximetry (%) 98 03/01/18 21:00 Constitutional: Yes: No Distress, Calm Cardiovascular: Yes: Regular Rate and Rhythm Respiratory: Yes: Regular Gastrointestinal: Yes: Normal Bowel Sounds, Soft Musculoskeletal: Yes: WNL Extremities: Yes: Other Neurological: Yes: Alert, Other (dementia) Psychiatric: Yes: Other (dementia) Labs: CBC, BMP 03/02/18 06:50 03/02/18 06:50 INR, PTT INR 1.16 (0.82-1.09) H 02/27/18 14:24 Assessment/Plan Problem List - Problems (1) Effusion of patella Code(s): M25.469 - EFFUSION, UNSPECIFIED KNEE Qualifiers: Laterality: left Qualified Code(s): M25.462 - Effusion, left knee (2) Fever Code(s): R50.9 - FEVER, UNSPECIFIED (3) Rheumatoid arthritis Code(s): M06.9 - RHEUMATOID ARTHRITIS, UNSPECIFIED (4) Dementia Code(s): F03.90 - UNSPECIFIED DEMENTIA WITHOUT BEHAVIORAL DISTURBANCE Qualifiers: Dementia type: unspecified type Dementia behavioral disturbance: without behavioral disturbance Qualified Code(s): F03.90 - Unspecified dementia without behavioral disturbance (5) HTN (hypertension) Code(s): I10 - ESSENTIAL (PRIMARY) HYPERTENSION (6) Hyperlipidemia Code(s): E78.5 - HYPERLIPIDEMIA, UNSPECIFIED (7) Osteoarthritis Code(s): M19.90 - UNSPECIFIED OSTEOARTHRITIS, UNSPECIFIED SITE (8) PVD (peripheral vascular disease) Code(s): I73.9 - PERIPHERAL VASCULAR DISEASE, UNSPECIFIED looking at the history i am also worried that the patient could have a septic joint patient has been started on vanco and ceftriaxone plan still awaiting for cx fluid analysis noted jones stop vanco oce cx finalized will decide about ceftriaxoe
[2018-03-02] MEDS: VANCOMYCIN 1,000 MG in DEXTROSE 5%-WATER - 250 ML IVPB SCH ×2 (13:14→15:38)
--- NOTE | 2018-03-02 15:34 | DS ---
Physical Examination Vital Signs: Vital Signs Temperature 36.6 C 03/02/18 10:00 Pulse Rate 78 03/02/18 10:00 Respiratory Rate 18 03/02/18 10:00 Blood Pressure 114/66 03/02/18 10:00 O2 Sat by Pulse Oximetry (%) 98 03/01/18 21:00 Labs: CBC, BMP 03/02/18 06:50 03/02/18 06:50 Discharge Summary Reason For Visit: FEVER Current Active Problems Effusion of patella (Acute) Fever (Acute) Hospital Course: (1) Effusion of patella Code(s): M25.469 - EFFUSION, UNSPECIFIED KNEE Qualifiers: Laterality: left Qualified Code(s): M25.462 - Effusion, left knee (2) Fever Code(s): R50.9 - FEVER, UNSPECIFIED Qualifiers: Fever type: unspecified Qualified Code(s): R50.9 - Fever, unspecified (3) Rheumatoid arthritis Code(s): M06.9 - RHEUMATOID ARTHRITIS, UNSPECIFIED (4) Dementia Code(s): F03.90 - UNSPECIFIED DEMENTIA WITHOUT BEHAVIORAL DISTURBANCE Qualifiers: Dementia type: unspecified type Dementia behavioral disturbance: without behavioral disturbance Qualified Code(s): F03.90 - Unspecified dementia without behavioral disturbance (5) HTN (hypertension) Code(s): I10 - ESSENTIAL (PRIMARY) HYPERTENSION (6) Hyperlipidemia Code(s): E78.5 - HYPERLIPIDEMIA, UNSPECIFIED (7) Osteoarthritis Code(s): M19.90 - UNSPECIFIED OSTEOARTHRITIS, UNSPECIFIED SITE (8) PVD (peripheral vascular disease) Code(s): I73.9 - PERIPHERAL VASCULAR DISEASE, UNSPECIFIED Ms Ramirez is a pleasant 82 year old female with dementia who comes in with L patellar effusion concern for septic arthritis. The knee was aspirated in the ED and she was seen by ID and started on vancomycin and rocephin. Ortho was also consulted and no further aspiration was needed. Her cultures are negative and she was found to have pseudogout. Her antibiotics have been stopped and she is safe for discharge on medications listed below. She can continue her methotrexate every Monday. 32 minutes spent in preparation of this discharge Condition: Stable - Instructions Diet, Activity, Other Instructions: regular diet. up with assistance, further activity per PT at SNF Referrals: Josseline,Dora, MD [Primary Care Provider] - Disposition: [facility] - Home Medications Comprehensive Discharge Medication List: Ambulatory Orders Donepezil HCl 10 mg PO BID 01/04/16 Timolol 0.5% [Timoptic] 1 drop OU BID 02/05/16 Folic Acid 1 mg PO DAILY 06/20/16 Vitamin B Complex 2 each PO DAILY 06/27/17 Alendronate Na [Fosamax (Weekly)] 70 mg PO Q7D 02/27/18 Cilostazol [Pletal -] 100 mg PO BID 02/27/18 Methotrexate [Mexate -] 2.5 mg PO Q7D 02/27/18 Acetaminophen [Tylenol .Regular Strength -] 650 mg PO Q4H PRN tablet 03/02/18 Colchicine [Colcrys -] 0.6 mg PO DAILY tablet 03/02/18 Docusate Sodium [Colace -] 100 mg PO BID capsule 03/02/18 LORazepam [Ativan] 0.5 mg PO HS PRN tablet MDD 1mg 03/02/18
[2018-03-02] MEDS: TIMOLOL 0.5% OU SCH (15:37)
[2018-03-02 18:33] VITALS: BP 138/78; PULSE 92; TEMP 98.2
== END 2018-03-02 18:44 | DRG 554 ==
LOC: JER 12:47 → JERBED 18:20 → J5S 21:26
PROVIDERS: ADMIT Internal Medicine; ATTEND Internal Medicine
PROC: 0S9D3ZX Drainage of Left Knee Joint, Percutaneous Approach, Diagnostic (ICD-10-PCS; principal; 2018-02-27)
DX: M11.262 Other chondrocalcinosis, left knee (principal); M25.462 Effusion, left knee; M06.9 Rheumatoid arthritis, unspecified; M19.90 Unspecified osteoarthritis, unspecified site; I73.9 Peripheral vascular disease, unspecified; E78.5 Hyperlipidemia, unspecified; G30.9 Alzheimer's disease, unspecified; F02.80 Dementia in other diseases classified elsewhere, unspecified severity, without behavioral disturbance, psychotic disturbance, mood disturbance, and anxiety; R50.9 Fever, unspecified; I10 Essential (primary) hypertension; G47.00 Insomnia, unspecified
CPT/HCPCS: 36415; 70450-TC; 71045-TC-FY; 73562-TC-LT-FY; 80048; 80053; 81003; 82550; 82803; 83605; 83735; 84100; 84484; 85025; 85610; 85651; 85730; 86140; 87040; 87070; 87075; 87086; 87205; 89051; 89060; 93005; 93010; 97116-GP; 97161-GP; 99283-25; J0131; J7030

== ENCOUNTER 2018-11-08 16:40 | Emergency (ER) | payer OTHER ==
[2018-11-08 17:36] VITALS: BP 147/80; PULSE 69; TEMP 98; BMI 19.9
--- NOTE | 2018-11-08 18:13 | PDOC ---
History of Present Illness <Princess Larry - Last Filed: 11/08/18 18:13> - General History Source: Family Exam Limitations: No Limitations - History of Present Illness Initial Comments: 11/08/18 19:17 The patient is a 82 year old female, with a significant past medical history of HTN, HLD, alzheimer's, and TIA who presents to the emergency department s/p witnessed fall with upper back pain after falling backwards onto carpet in her home. The patients daughter denied any LOC after the fall, however, the patient s daughter notes she was diaphoretic and lightheaded at the time. History was reported by daughter at bedside. Daughter denies recent fevers, headache.Daughter denies recent nausea, vomit, diarrhea or constipation.Daughter denies recent dysuria, frequency, urgency or hematuria. Daughter denies recent chest pain or shortness of breath. Allergies: shellfish Primary Care Physician: Dr. 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) - Suicide/Smoking/Psychosocial Hx Smoking History: Never smoked Have you smoked in the past 12 months: No Number of Cigarettes Smoked Daily: 0 Information on smoking cessation initiated: No Hx Alcohol Use: No Drug/Substance Use Hx: No Substance Use Type: None Hx Substance Use Treatment: No <Princess Larry - Last Filed: 11/08/18 18:13> <Nathan Parker - Last Filed: 11/08/18 19:24> - Past Medical History Allergies/Adverse Reactions: Allergies Allergy/AdvReac Type Severity Reaction Status Date / Time No Known Drug Allergies Allergy Verified 11/08/18 17:36 shellfish derived AdvReac Mild Itching Verified 11/08/18 17:36 Home Medications: Ambulatory Orders Donepezil HCl 10 mg PO BID 01/04/16 Timolol 0.5% [Timoptic] 1 drop OU BID 02/05/16 Folic Acid 1 mg PO DAILY 06/20/16 Vitamin B Complex 2 each PO DAILY 06/27/17 Alendronate Na [Fosamax (Weekly)] 70 mg PO Q7D 02/27/18 Cilostazol [Pletal -] 100 mg PO BID 02/27/18 Methotrexate [Mexate -] 2.5 mg PO Q7D 02/27/18 Acetaminophen [Tylenol .Regular Strength -] 650 mg PO Q4H PRN tablet 03/02/18 Colchicine [Colcrys -] 0.6 mg PO DAILY tablet 03/02/18 Docusate Sodium [Colace -] 100 mg PO BID capsule 03/02/18 LORazepam [Ativan] 0.5 mg PO HS PRN tablet MDD 1mg 03/02/18 Review of Systems - Review of Systems Comments:: 11/08/18 19:21 GENERAL/CONSTITUTIONAL: (+) diaphoretic No fever. No weakness. HEAD, EYES, EARS, NOSE AND THROAT: No change in vision. No ear pain or discharge. No sore throat. CARDIOVASCULAR: No chest pain or shortness of breath. RESPIRATORY: No cough, wheezing, or hemoptysis. GASTROINTESTINAL: No nausea, vomiting, diarrhea or constipation. GENITOURINARY: No dysuria, frequency, or change in urination. MUSCULOSKELETAL: (+) upper back pain. No joint pain, or swelling. No neck pain. SKIN: No rash NEUROLOGIC: (+) lightheadedness. No headache, vertigo, loss of consciousness, or change in strength/sensation. ENDOCRINE: No increased thirst. No abnormal weight change. HEMATOLOGIC/LYMPHATIC: No anemia, easy bleeding, or history of blood clots. ALLERGIC/IMMUNOLOGIC: No hives or skin allergy. All Other Systems: Reviewed and Negative <Nathan Parker - Last Filed: 11/08/18 19:24> *Physical Exam - Vital Signs Last Vital Signs Temp Pulse Resp BP Pulse Ox 98.0 F 69 16 147/80 100 11/08/18 16:43 11/08/18 16:43 11/08/18 16:43 11/08/18 16:43 11/08/18 16:43 <Princess Larry - Last Filed: 11/08/18 18:13> - Vital Signs Last Vital Signs Temp Pulse Resp BP Pulse Ox 98.0 F 69 16 147/80 100 11/08/18 16:43 11/08/18 16:43 11/08/18 16:43 11/08/18 16:43 11/08/18 16:43 <Nathan Parker - Last Filed: 11/08/18 19:24> Moderate Sedation - Procedure Monitoring Vital Signs: Procedure Monitoring Vital Signs Temperature 98.0 F 11/08/18 16:43 Pulse Rate 69 11/08/18 16:43 Respiratory Rate 16 11/08/18 16:43 Blood Pressure 147/80 11/08/18 16:43 O2 Sat by Pulse Oximetry (%) 100 11/08/18 16:43 <Princess Larry - Last Filed: 11/08/18 18:13> - Procedure Monitoring Vital Signs: Procedure Monitoring Vital Signs Temperature 98.0 F 11/08/18 16:43 Pulse Rate 69 11/08/18 16:43 Respiratory Rate 16 11/08/18 16:43 Blood Pressure 147/80 11/08/18 16:43 O2 Sat by Pulse Oximetry (%) 100 11/08/18 16:43 <Nathan Parker - Last Filed: 11/08/18 19:24> ED Treatment Course - LABORATORY CBC & Chemistry Diagram: 11/08/18 19:20 11/08/18 19:20 <Nathan Parker - Last Filed: 11/08/18 19:24> *DC/Admit/Observation/Transfer - Attestations Scribe Attestion: 11/08/18 19:24 Documentation prepared by Nathan Parker, acting as medical case manager for Princess Larry MD. <Nathan Parker - Last Filed: 11/08/18 19:24>
[2018-11-08 19:25] LABS: BASO % 0.5 % (0-2.0); HEMATOCRIT 38.2 % (32.4-45.2); HEMOGLOBIN 13.2 GM/dL (10.7-15.3); LYMPH % 4.9 % (8-40); MCH 33.2 pg (25.7-33.7); MCHC 34.4 g/dl (32.0-36.0); MEAN CELL VOLUME 96.5 fl (80-96); MEAN PLT VOLUME 11.3 fl (7.5-11.1); MONO % 5.4 % (3.8-10.2); NEUT % 89.2 % (42.8-82.8); PLATELET COUNT 158 K/MM3 (134-434); RBC 3.96 M/mm3 (3.60-5.2); RDW 12.7 % (11.6-15.6); WHITE BLOOD COUNT 10.8 K/mm3 (4.0-10.0)
--- NOTE | 2018-11-09 00:17 | PDOC ---
*Physical Exam - Vital Signs Last Vital Signs Temp Pulse Resp BP Pulse Ox 98.0 F 69 16 147/80 100 11/08/18 16:43 11/08/18 16:43 11/08/18 16:43 11/08/18 16:43 11/08/18 16:43 <Maura Castillo - Last Filed: 11/09/18 01:05> - Vital Signs Last Vital Signs Temp Pulse Resp BP Pulse Ox 98.0 F 69 16 147/80 100 11/08/18 16:43 11/08/18 16:43 11/08/18 16:43 11/08/18 16:43 11/08/18 16:43 <Ab Sin - Last Filed: 11/09/18 01:10> ED Treatment Course - LABORATORY CBC & Chemistry Diagram: 11/08/18 19:20 11/08/18 23:40 - ADDITIONAL ORDERS Additional order review: Laboratory Results 11/08/18 11/08/18 23:40 19:20 Sodium 139 Cancelled Potassium 4.3 Cancelled Chloride 104 Cancelled Carbon Dioxide 29 Cancelled Anion Gap 6 L Cancelled BUN 18 Cancelled Creatinine 0.6 Cancelled Creat Clearance w eGFR > 60 Cancelled Random Glucose 144 H Cancelled Calcium 8.7 Cancelled Total Bilirubin 0.5 Cancelled AST 18 Cancelled ALT 22 Cancelled Alkaline Phosphatase 100 Cancelled Total Protein 7.1 Cancelled Albumin 3.6 Cancelled 11/08/18 19:20 RBC 3.96 MCV 96.5 H MCHC 34.4 RDW 12.7 MPV 11.3 H D Neutrophils % 89.2 H D Lymphocytes % 4.9 L D Monocytes % 5.4 Eosinophils % 0.0 D Basophils % 0.5 - RADIOLOGY Radiograph Interpretation: EXAM: X-Ray Chest and Left Ribs Impression: No visible pneumothorax, pleural effusion, or lung contusion. Chin obscures lung apices. Cardiomegaly and/or pericardial effusion. Osteopenia. Reviewed by Micki Olivarez 11/09/2018 00:55 11/09/18 01:05 <Maura Castillo - Last Filed: 11/09/18 01:05> - LABORATORY CBC & Chemistry Diagram: 11/08/18 19:20 11/08/18 23:40 - ADDITIONAL ORDERS Additional order review: Laboratory Results 11/08/18 19:20 Sodium Cancelled Potassium Cancelled Chloride Cancelled Carbon Dioxide Cancelled Anion Gap Cancelled BUN Cancelled Creatinine Cancelled Creat Clearance w eGFR Cancelled Random Glucose Cancelled Calcium Cancelled Total Bilirubin Cancelled AST Cancelled ALT Cancelled Alkaline Phosphatase Cancelled Total Protein Cancelled Albumin Cancelled 11/08/18 19:20 RBC 3.96 MCV 96.5 H MCHC 34.4 RDW 12.7 MPV 11.3 H D Neutrophils % 89.2 H D Lymphocytes % 4.9 L D Monocytes % 5.4 Eosinophils % 0.0 D Basophils % 0.5 <Ab Sin - Last Filed: 11/09/18 01:10> Medical Decision Making - Medical Decision Making 11/09/18 00:14 Patient's family at bedside, she is at her baseline. She is resting comfortably , not requesting analgesia. EKG non-ischemic, NSR, intervals, segments wnl chemistry was hemolyzed ct b, cs negative for acute pathology f/u chem, xr rib series 11/09/18 01:08 Chem with mild glu elevation xr w/o trauma per IOC read <Ab Sin - Last Filed: 11/09/18 01:10> *DC/Admit/Observation/Transfer - Attestations Scribe Attestion: Documentation prepared by CASA Rosado, acting as medical pathology teacher for Ab Sin MD. 11/09/18 01:07 <Maura Castillo - Last Filed: 11/09/18 01:05> <Ab Sin - Last Filed: 11/09/18 01:10> Diagnosis at time of Disposition: Injury - Discharge Dispostion Disposition: HOME - Patient Instructions Printed Discharge Instructions: How to Prevent Falls
[2018-11-09 00:19] LABS: ALBUMIN 3.6 g/dl (3.4-5.0); ALK PHOS 100 U/L (45-117); ANION GAP 6 MMOL/L (8-16); BILIRUBIN,TOTAL 0.5 mg/dL (0.2-1); BLOOD UREA NITROGEN 18 mg/dL (7-18); CALCIUM 8.7 mg/dL (8.5-10.1); CHLORIDE 104 mmol/L (98-107); CO2 29 mmol/L (21-32); CREATININE 0.6 mg/dL (0.55-1.3); GLUCOSE,RANDOM 144 mg/dL (74-106); POTASSIUM 4.3 mmol/L (3.5-5.1); SGOT/AST 18 U/L (15-37); SGPT/ALT 22 U/L (13-61); SODIUM 139 mmol/L (136-145); TOT PROT 7.1 g/dl (6.4-8.2)
--- NOTE | 2018-11-09 11:55 | EKG ---
Test Reason : Blood Pressure : / mmHG Vent. Rate : 093 BPM Atrial Rate : 093 BPM P-R Int : 170 ms QRS Dur : 082 ms QT Int : 360 ms P-R-T Axes : 051 013 039 degrees QTc Int : 447 ms POOR DATA QUALITY, INTERPRETATION MAY BE ADVERSELY AFFECTED NORMAL SINUS RHYTHM NORMAL ECG WHEN COMPARED WITH ECG OF 27-FEB-2018 14:19, NO SIGNIFICANT CHANGE WAS FOUND Confirmed by ITALIA SCHULTZ, JAIRO ([id number]) on 11/09/2018 11:55:08 AM Referred By: Confirmed By:JAIRO ECHAVARRIA MD
== END 2018-11-09 01:45 | disposition home or self-care (01) ==
LOC: JER 16:40
DX: S29.9XXA Unspecified injury of thorax, initial encounter (principal); W18.39XA Other fall on same level, initial encounter; Y93.89 Activity, other specified; Y92.038 Other place in apartment as the place of occurrence of the external cause; Y99.8 Other external cause status; I10 Essential (primary) hypertension; E78.00 Pure hypercholesterolemia, unspecified; G30.8 Other Alzheimer's disease; F02.80 Dementia in other diseases classified elsewhere, unspecified severity, without behavioral disturbance, psychotic disturbance, mood disturbance, and anxiety; Z86.73 Personal history of transient ischemic attack (TIA), and cerebral infarction without residual deficits
CPT/HCPCS: 36415; 70450-TC; 71101-TC-LT-FY; 72125-TC; 80053; 85025; 93005; 93010; 99282-25

== ENCOUNTER 2018-11-15 12:20 | Emergency (ER) | payer OTHER ==
--- NOTE | 2018-11-15 12:34 | PDOC ---
History of Present Illness - General Stated Complaint: CONSTIPATION Time Seen by Provider: 11/15/18 12:34 - History of Present Illness Initial Comments: 11/15/18 12:42 Ms. Ramirez is an 82 yo female w/ pmh of HTN, HLD, alzheimers, prior TIA who presents for evaluation of 8 days of constipation. Patient reportedly fell last week and was evaluated with ribs/head/c-spine CTs which were all normal. Family became concerned as she has not been walking at her normal level and has additionally not had a bowel movement since her fall. Patient has been passing gas and urinating normally. Denies any other symptoms. The patient denies chest pain, shortness of breath, headache and dizziness. Denies fever, chills, nausea, vomit, and diarrhea. Denies dysuria, frequency, urgency and hematuria. Allergies: shellfish Primary Care Physician: Dr. Louise Past History - Past Medical History Allergies/Adverse Reactions: Allergies Allergy/AdvReac Type Severity Reaction Status Date / Time No Known Drug Allergies Allergy Verified 11/08/18 17:36 shellfish derived AdvReac Mild Itching Verified 11/08/18 17:36 Home Medications: Ambulatory Orders Divalproex [Depakote -] 250 mg PO BID 11/09/18 Donepezil HCl [Aricept] 5 mg PO DAILY 11/09/18 Lidocaine 5% Patch [Lidoderm -] 1 patch TP DAILY #7 patch 11/15/18 Methocarbamol [Robaxin -] 750 mg PO BID PRN #14 tablet 11/15/18 Polyethylene Glycol 3350 [Miralax (For Bowel Prep) -] 17 gm PO DAILY #1 bottle 11/15/18 Sodium Phosphate,Lawrence-Dibasic [Fleet Enema] 133 ml RC DAILY PRN #3 enema Anemia: No Asthma: No Cancer: No Cardiac Disorders: No CVA: Yes (TIA) COPD: No CHF: No Dementia: Yes (ALZHEIMERS) Diabetes: No GI Disorders: No Disorders: No HTN: Yes Hypercholesterolemia: Yes Liver Disease: No Seizures: No Thyroid Disease: No - Surgical History Abdominal Surgery: No Appendectomy: No Cardiac Surgery: No Cholecystectomy: No Lung Surgery: No 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 *Physical Exam - Physical Exam Comments: 11/15/18 14:52 GENERAL: Awake, alert, and oriented to baseline, in no acute distress HEAD: No signs of trauma, normocephalic, atraumatic EYES: PERRLA, EOMI, sclera anicteric, conjunctiva clear ENT: Auricles normal inspection, hearing grossly normal, nares patent, oropharynx clear without exudates. Moist mucosa NECK: Normal ROM, supple, no lymphadenopathy, JVD, or masses LUNGS: No distress, speaks full sentences, clear to auscultation bilaterally HEART: Regular rate and rhythm, normal S1 and S2, no murmurs, rubs or gallops, peripheral pulses normal and equal bilaterally. ABDOMEN: +Full, diffusely ttp, normoactive bowel sounds. No guarding, no rebound. No masses EXTREMITIES: Normal inspection, Normal range of motion, no edema. No clubbing or cyanosis. NEUROLOGICAL: Cranial nerves II through XII grossly intact. Normal speech, no focal sensorimotor deficits SKIN: Warm, Dry, normal turgor, no rashes or lesions noted. ED Treatment Course - LABORATORY CBC & Chemistry Diagram: 11/15/18 13:26 11/15/18 13:26 Medical Decision Making - Medical Decision Making 11/15/18 18:00 Ms. Ramirez is an 82 yo female w/ pmh as described who presents for evaluation of difficulty ambulating with additional constipation and abdominal pain. Patient labs as below grossly wnl. CT ordered for further evaluation of constipation / pain significan for left pleural effusion with associated basilar compressive atelectasis. Also possible deformity of 10th left rip with additional moderate colonic fecal retention. Additional CXR ordered for further evaluation of ribs. Suspect constipation with rib pain as etiology of symptoms. CXR significant for pleural effusion as seen on CT w/out other concerning factors. Patient will be discharged with lidocaine patches, fleet enemas, robaxin, and miralax in order to alleviate constipation symptoms and encourage ambulation. No concern for acute process at this time. Patient will follow-up with primary care provider for further evaluation. Laboratory Results - last 24 hr 11/15/18 11/15/18 11/15/18 13:26 13:26 13:26 WBC 7.0 RBC 3.49 L Hgb 11.6 Hct 33.9 MCV 97.1 H MCH 33.2 MCHC 34.2 RDW 12.3 Plt Count 218 D MPV 10.1 D Absolute Neuts (auto) 5.1 Neutrophils % 73.4 Lymphocytes % 13.5 D Monocytes % 12.0 H D Eosinophils % 0.6 D Basophils % 0.5 Nucleated RBC % 0 Sodium 139 Potassium 4.3 Chloride 107 Carbon Dioxide 28 Anion Gap 4 L BUN 17 Creatinine 0.6 Creat Clearance w eGFR > 60 Random Glucose 87 Lactic Acid 0.9 Calcium 8.5 Total Bilirubin 0.5 AST 11 L ALT 16 Alkaline Phosphatase 85 Total Protein 6.2 L Albumin 2.8 L *DC/Admit/Observation/Transfer Diagnosis at time of Disposition: Abdominal pain Qualifiers: Abdominal location: unspecified location Qualified Code(s): R10.9 - Unspecified abdominal pain Constipation Qualifiers: Constipation type: unspecified constipation type Qualified Code(s): K59.00 - Constipation, unspecified Rib fracture Qualifiers: Encounter type: subsequent encounter Rib fracture type: single rib Fracture type: closed Laterality: unspecified laterality Fracture healing: with routine healing Qualified Code(s): S22.39XD - Fracture of one rib, unspecified side, subsequent encounter for fracture with routine healing - Discharge Dispostion Disposition: HOME - Prescriptions Prescriptions: Lidocaine 5% Patch [Lidoderm -] 1 patch TP DAILY #7 patch Methocarbamol [Robaxin -] 750 mg PO BID PRN #14 tablet PRN Reason: Pain Polyethylene Glycol 3350 [Miralax (For Bowel Prep) -] 17 gm PO DAILY #1 bottle Sodium Phosphate,Lawrence-Dibasic [Fleet Enema] 133 ml RC DAILY PRN #3 enema PRN Reason: Constipation - Referrals Referrals: Dora Manjarrez MD [Primary Care Provider] - - Patient Instructions Printed Discharge Instructions: DI for Constipation Additional Instructions: Ingrid was evaluated today in the ER for her constipation and difficulty walking. We evaluated her with labs as well as abdominal CT and chest Xray. We believe her symptoms are caused by her rib fracture from her previous fall and subsequent constipation from not ambulating. We have sent medications to your pharmacy - take all as proscribed. Follow-up with primary care provider next week for further evaluation. Return to ER if any fever, chills, increase in pain , or other concerning symptoms. - Post Discharge Activity
--- NOTE | 2018-11-15 12:44 | PDOC ---
Attending Attestation - HPI HPI: 11/15/18 13:26 The patient is a 82 year old female with a significant past medical history of HTN, HLD, alzheimer's, and TIA, who presents to the emergency department today accompanied by daughters complaining of 8 days constipation since she was last here on 11/08. She states she has tenderness to her abdomen, and is passing gas freely. The patient denies chest pain, shortness of breath, headache and dizziness. Denies fever, chills, nausea, vomit, and diarrhea. Denies dysuria, frequency, urgency and hematuria. Allergies: NKA Social history: No reported PCP: Dr. Louise - Physicial Exam PE: 11/15/18 13:47 GENERAL: Awake, alert, and in no acute distress HEAD: No signs of trauma EYES: PERRLA, EOMI, sclera anicteric, conjunctiva clear ENT: Auricles normal inspection, hearing grossly normal, nares patent, oropharynx clear without exudates. Moist mucosa NECK: Normal ROM, supple, no lymphadenopathy, JVD, or masses LUNGS: Breath sounds equal, clear to auscultation bilaterally. No wheezes, and no crackles HEART: Regular rate and rhythm, normal S1 and S2, no murmurs, rubs or gallops ABDOMEN: Soft, nontender, normoactive bowel sounds. No guarding, no rebound. No masses EXTREMITIES: Normal range of motion, no edema. No clubbing or cyanosis. No cords, erythema, or tenderness NEUROLOGICAL: Gait unassessed. (+) dementia, not responding to questions. Cranial nerves II through XII grossly intact. SKIN: Warm, Dry, normal turgor, no rashes or lesions noted. - Medical Decision Making 11/15/18 13:27 Documentation prepared by Bernie Tello, acting as medical oncology physician for Karen Ruelas MD. <Bernie Tello - Last Filed: 11/15/18 14:01> - Resident Resident Name: Armin Monroy - ED Attending Attestation I have performed the following: I have examined & evaluated the patient, The case was reviewed & discussed with the resident, I agree w/resident's findings & plan, Exceptions are as noted - Medical Decision Making 11/15/18 16:30 Laboratory Tests 11/08/18 11/15/18 11/15/18 19:20 13:26 13:26 WBC 10.8 H 7.0 Hgb 13.2 11.6 Hct 38.2 33.9 Plt Count 158 D 218 D BUN [address] pending 11/17/18 18:37 CT demonstrates: constipation Left pleural effusion, 10th rib fracture Will discharge to [facility] Bowel regimen Pain control for rib pain Follow up with PMD Return to the ER with any other concerns or complaints <Karen Ruelas - Last Filed: 11/17/18 18:47>
[2018-11-15 12:50] VITALS: BMI 18.6
[2018-11-15] MEDS ORDERED: ACETAMINOPHEN 1000 MG/100 ML VIAL (NON FORMULARY) IVPB ONE (12:52)
[2018-11-15 13:44] LABS: BASO % 0.5 % (0-2.0); EOS % 0.6 % (0-4.5); HEMATOCRIT 33.9 % (32.4-45.2); HEMOGLOBIN 11.6 GM/dL (10.7-15.3); LYMPH % 13.5 % (8-40); MCH 33.2 pg (25.7-33.7); MCHC 34.2 g/dl (32.0-36.0); MEAN CELL VOLUME 97.1 fl (80-96); MEAN PLT VOLUME 10.1 fl (7.5-11.1); NEUT % 73.4 % (42.8-82.8); PLATELET COUNT 218 K/MM3 (134-434); RBC 3.49 M/mm3 (3.60-5.2); RDW 12.3 % (11.6-15.6)
[2018-11-15] MEDS ORDERED: ACETAMINOPHEN INJECTION 100 ML IVPB ONE (13:50)
[2018-11-15] MEDS ORDERED: HALOPERIDOL LACTATE 5 MG/ML IM ONE (14:08)
[2018-11-15] MEDS ORDERED: HALOPERIDOL LACTATE 5 MG/ML ONE (14:18)
[2018-11-15 14:23] LABS: ALBUMIN 2.8 g/dl (3.4-5.0); ALK PHOS 85 U/L (45-117); ANION GAP 4 MMOL/L (8-16); BILIRUBIN,TOTAL 0.5 mg/dL (0.2-1); BLOOD UREA NITROGEN 17 mg/dL (7-18); CALCIUM 8.5 mg/dL (8.5-10.1); CHLORIDE 107 mmol/L (98-107); CO2 28 mmol/L (21-32); CREATININE 0.6 mg/dL (0.55-1.3); GLUCOSE,RANDOM 87 mg/dL (74-106); POTASSIUM 4.3 mmol/L (3.5-5.1); SGOT/AST 11 U/L (15-37); SGPT/ALT 16 U/L (13-61); SODIUM 139 mmol/L (136-145); TOT PROT 6.2 g/dl (6.4-8.2)
[2018-11-15 18:56] VITALS: BP 129/60; PULSE 68; TEMP 98
== END 2018-11-15 18:44 | disposition home or self-care (01) ==
LOC: JER 12:20
PROC: 3E023GC Introduction of Other Therapeutic Substance into Muscle, Percutaneous Approach (ICD-10-PCS; principal; 2018-11-15)
PROC: 3E033NZ Introduction of Analgesics, Hypnotics, Sedatives into Peripheral Vein, Percutaneous Approach (ICD-10-PCS; 2018-11-15)
DX: S22.39XD Fracture of one rib, unspecified side, subsequent encounter for fracture with routine healing (principal); K59.00 Constipation, unspecified; R10.9 Unspecified abdominal pain; W18.30XA Fall on same level, unspecified, initial encounter; Y93.9 Activity, unspecified; Y92.9 Unspecified place or not applicable; I10 Essential (primary) hypertension; E78.00 Pure hypercholesterolemia, unspecified; G30.9 Alzheimer's disease, unspecified; F02.80 Dementia in other diseases classified elsewhere, unspecified severity, without behavioral disturbance, psychotic disturbance, mood disturbance, and anxiety
CPT/HCPCS: 36415; 71045-TC-FY; 74177-TC; 80053; 83605; 85025; 99282-25; J0131

== ENCOUNTER 2018-11-28 12:02 | Inpatient (IN) | payer OTHER ==
--- NOTE | 2018-11-28 12:48 | PDOC ---
History of Present Illness - General Chief Complaint: Shortness of Breath Stated Complaint: COUGHING Time Seen by Provider: 11/28/18 12:48 History Source: Patient Exam Limitations: Dementia - History of Present Illness Initial Comments: Pt is a 82 yo F, with PMH of HTN, HLD, Alzheimer's ds, TIA, and falls (fall with broken L 10th rib 11/15/2017), who is presenting with a cough for 7 days, productive of yellow-moni sputum. The pt is accompanied by her daughter and home health aide. The daughter states the pt was brought to the ER today due to complaints of mid-sternal chest pain after coughing. The pt has been afebrile at home (temp in 98s), and has been eating and drinking as usual. She has had a swallow assessment done at home by care team, and was deemed to have appropriate ability to swallow liquid foods (ensure). Due to the pt's dementia, the pt cannot provide ROS answers, which the daughter states is pts normal baseline behavior. Per daughter, pt has not had any nausea/vomiting, diarrhea, skin rashes, or urinary complaints. Social: Pt denies any cigarette, alcohol, or drug use. Pt denies any recent travel or sick contacts. 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 11/28/18 15:53 Past History - Travel Traveled outside of the country in the last 30 days: No Close contact w/someone who was outside of country & ill: No - Past Medical History Allergies/Adverse Reactions: Allergies Allergy/AdvReac Type Severity Reaction Status Date / Time No Known Drug Allergies Allergy Verified 11/28/18 12:32 shellfish derived AdvReac Mild Itching Verified 11/28/18 12:32 Home Medications: Ambulatory Orders Divalproex [Depakote -] 250 mg PO BID 11/09/18 Polyethylene Glycol 3350 [Miralax (For Bowel Prep) -] 17 gm PO DAILY #1 bottle 11/15/18 Sodium Phosphate,[place]-Dibasic [Fleet Enema] 133 ml RC DAILY PRN #3 enema Anemia: No Asthma: No Cancer: No Cardiac Disorders: No CVA: Yes (TIA) COPD: No CHF: No Dementia: Yes (ALZHEIMERS) Diabetes: No GI Disorders: No Disorders: No HTN: Yes Hypercholesterolemia: Yes Liver Disease: No Seizures: No Thyroid Disease: No - Surgical History Abdominal Surgery: No Appendectomy: No Cardiac Surgery: No Cholecystectomy: No Lung Surgery: No Neurologic Surgery: Yes (BRAIN SURGERY r/t CSF leak) - Immunization History Immunization Up to Date: Yes - Suicide/Smoking/Psychosocial Hx Smoking History: Never smoked Have you smoked in the past 12 months: No Number of Cigarettes Smoked Daily: 0 Information on smoking cessation initiated: No Hx Alcohol Use: No Drug/Substance Use Hx: No Substance Use Type: None Hx Substance Use Treatment: No Review of Systems - Review of Systems Able to Perform ROS?: Yes (limited, per family) Is the patient limited Urdu proficient: Yes Constitutional: Yes: Weight Stable. No: Fever, Loss of Appetite, Night Sweats, Weakness HEENTM: No: Nose Congestion, Hearing Loss, Throat Pain, Throat Swelling, Difficulty Swallowing Respiratory: Yes: See HPI, Cough, Productive cough. No: Orthopnea, Shortness of Breath, Wheezing, Hemoptysis Cardiac (ROS): Yes: See HPI, Chest Pain (chest pain after coughing), Edema ( mild non-pitting edema). No: Irregular Heart Rate, Syncope ABD/GI: Yes: Constipated (baseline BMs every few days). No: Diarrhea, Nausea, Poor Appetite, Poor Fluid Intake, Rectal Bleeding, Vomiting : No: Frequency, Pain Musculoskeletal: No: Back Pain, Joint Pain Integumentary: No: Rash Neurological: Yes: Unsteady Gait (walks with assistance after recent falls). No : Seizure, Tremors, Weakness Psychiatric: No: Sleep Pattern Change, Change in Appetite Endocrine: No: Increased Urine, Change in Weight Hematologic/Lymphatic: No: Anemia, Blood Clots, Easy Bleeding, Easy Bruising *Physical Exam - Vital Signs Last Vital Signs Temp Pulse Resp BP Pulse Ox 98.2 F 79 19 0/0 L 85 L 11/28/18 12:24 11/28/18 12:24 11/28/18 12:24 11/28/18 12:24 11/28/18 12:24 - Physical Exam Comments: Pt afebrile, O2 saturation mid-high 80%s on RA, pt placed on 2 L NC. Pt in NAD, thin body habitus. PE showed pt alert, but oriented only to person. band attacher generally intact, muscular strength and sensation intact, pt follows minimal directions. Oropharynx without erythema or exudates. No nasal congestion, hearing intact. Clear heart sounds, S1/S2, no JVD, or heart murmur. Mild b/l pedal edema, no pitting. Diminished lung sounds throughout, pt not cooperative with commands to take deep breaths, poor inspiratory effort. No obvious grimace with palpation of chest wall, no crepitus, no step-offs. No auscultated wheezes , or crackles, no accessory muscle use. No abdominal or CVA tenderness to palpation, no rebound, no guarding. Abdomen soft, non-distended, and with normoactive bowel sounds. Skin without jaundice or rash. 11/28/18 15:50 Moderate Sedation - Procedure Monitoring Vital Signs: Procedure Monitoring Vital Signs Temperature 98.2 F 11/28/18 12:24 Pulse Rate 79 11/28/18 12:24 Respiratory Rate 19 11/28/18 12:24 Blood Pressure 0/0 L 11/28/18 12:24 O2 Sat by Pulse Oximetry (%) 85 L 11/28/18 12:24 ED Treatment Course - LABORATORY CBC & Chemistry Diagram: 11/28/18 13:40 11/28/18 13:40 Medical Decision Making - Medical Decision Making Pt was seen at bedside, also will be seen by attending Dr. Ruelas. Pt presenting with a cough for 7 days, productive of yellow-moni sputum. The pt is accompanied by her daughter and home health aide. The daughter states the pt was brought to the ER today due to complaints of mid-sternal chest pain after coughing. The pt has been afebrile at home (temp in 98s), and has been eating and drinking as usual. She has had a swallow assessment done at home by care team, and was deemed to have appropriate ability to swallow liquid foods (ensure). Due to the pt's dementia, the pt cannot provide ROS answers, which the daughter states is pts normal baseline behavior. Per daughter, pt has not had any nausea/vomiting, diarrhea, skin rashes, or urinary complaints. Pt afebrile, O2 saturation mid-high 80%s on RA, pt placed on 2 L NC. Pt in NAD, thin body habitus. PE showed pt alert, but oriented only to person. band attacher generally intact, muscular strength and sensation intact, pt follows minimal directions. Oropharynx without erythema or exudates. No nasal congestion, hearing intact. Clear heart sounds, S1/S2, no JVD, or heart murmur. Mild b/l pedal edema, no pitting. Diminished lung sounds throughout, pt not cooperative with commands to take deep breaths, poor inspiratory effort. No obvious grimace with palpation of chest wall, no crepitus, no step-offs. No auscultated wheezes , or crackles, no accessory muscle use. No abdominal or CVA tenderness to palpation, no rebound, no guarding. Abdomen soft, non-distended, and with normoactive bowel sounds. Skin without jaundice or rash. Considering pneumonia (aspiration more likely than infectious, pt afebrile) vs mucous plugging 2/2 splinting from rib fracture/poor inspiratory effort vs HF 2/ 2 to acute HF, ACS. Ordered work-up including CBC, CMP, cardiac profile, VBG. Provided 2 L O2 NC for improvement of SOB, . Will continue to reassess pt and monitor for symptomatic improvement. Pt very agitated, was able to obtain CBC and CMP to start. Will obtain additional labs once pt has calmed. 11/28/18 13:45 Chest x-ray shows large pleural effusion on the L lower lung rice (lower 2/3) as compared to imaging done 11/15/2018. Ordered non-contrast chest CT scan. Ordered type and screen and PT/INR in case of any intervention needed. 11/28/18 14:08 CBC showed no increased WBC, H/H stable. Respiratory paged (requested Dr. Rangel). Awaiting call back. Pt will be admitted to hospitalist service, pending basic labs and CT scan. 11/28/18 14:11 CMP slightly hemolyzed, pt not retaining CO2. Trop <.02. Pt continues to be agitated, will provide 2.5 mg IM haldol so pt can receive CT scan. Nursing staff aware and will administer. Dr. Ruelas spoke with Dr. Rangel, agrees with plan. 11/28/18 14:29 Influenza negative. ECG: NSR, intervals WNL. No TWIs or significant ST segment changes. No significant changes from prior ECG. Pt more calm after Haldol administration, pt was taken for CT scan on monitor. 11/28/18 15:[address]: Impression: Moderate to large left pleural effusion with consolidation and collapse of most of the left lower lobe. Underlying pathology cannot be ruled out or evaluated. Mild atelectatic changes in lingular segment of the left upper lobe. 11/28/18 17:34 Providing 1 g ofirmev IV as pt complains of mild headache and is becoming mildly agitated again. 11/28/18 17:[address] Bahena who accepted pt for admission to telemetry inpatient. Requested repeat K level (hemolysis on last lab). Dr. Rangel placed as pulm consult. Pt stable on 2 L NC, on tele box, awaiting bed. 11/28/18 17:51 *DC/Admit/Observation/Transfer Diagnosis at time of Disposition: Pleural effusion - Discharge Dispostion Condition at time of disposition: Stable Decision to Admit order: No - Referrals Referrals: Dora Manjarrez MD [Primary Care Provider] - - Patient Instructions - Post Discharge Activity
--- NOTE | 2018-11-28 13:49 | PDOC ---
Attending Attestation - Resident Resident Name: TachoDayana - ED Attending Attestation I have performed the following: I have examined & evaluated the patient, The case was reviewed & discussed with the resident, I agree w/resident's findings & plan, Exceptions are as noted - HPI HPI: 11/28/18 14:04 Ms Ramirez is an 82 yo F who presents to the ER due to complaint of chest pain Pt was seen in the ER on 11/08 s/p fall. Pt seen again in the ER with a complaint of constipation CT abdomen negative for intra-abdominal pathology, left 10th rib fracture Pleural effusion Pt was able to participate in PT at home Presents today because she reported chest pain last night - Physicial Exam PE: 11/28/18 14:03 GENERAL: The patient is in no acute distress, awake and alert. EYES: PERRLA, EOMI, sclera anicteric, conjunctiva clear. ENT: Ears normal, nares patent, oropharynx clear without exudates. Moist mucous membranes. NECK: Normal range of motion, supple LUNGS: Breath sounds equal, decreased breath sounds left base HEART:Regular rate and rhythm, normal S1 and S2 without murmur, rub or gallop. ABDOMEN: Soft, nontender, normoactive bowel sounds. EXTREMITIES: Normal range of motion, no edema. NEUROLOGICAL: Cranial nerves II through XII grossly intact. Normal speech. No focal neurological deficits. MUSCULOSKELETAL: Back non-tender to palpation SKIN: Warm, Dry, normal turgor, no rashes or lesions noted. - Medical Decision Making 11/28/18 13:59 Laboratory Tests 11/15/18 11/28/18 13:26 13:40 WBC 7.0 9.9 Hgb 11.6 11.4 Hct 33.9 33.7 Plt Count 218 D 324 D Call placed to Dr López 11/28/18 14:[address] Rangel 11/28/18 16:25 EKG: NSR rate of 85 bpm, axis nml, no st elevation or depression, t waves upright Admitted to hospitalist service Clinical impression: large left pleural effusion, repeat presentation
[2018-11-28 13:51] LABS: BASO % 0.8 % (0-2.0); EOS % 0.4 % (0-4.5); HEMATOCRIT 33.7 % (32.4-45.2); HEMOGLOBIN 11.4 GM/dL (10.7-15.3); LYMPH % 6.1 % (8-40); MCH 32.6 pg (25.7-33.7); MCHC 33.9 g/dl (32.0-36.0); MEAN CELL VOLUME 96.1 fl (80-96); MEAN PLT VOLUME 9.4 fl (7.5-11.1); MONO % 11.5 % (3.8-10.2); NEUT % 81.2 % (42.8-82.8); PLATELET COUNT 324 K/MM3 (134-434); RBC 3.51 M/mm3 (3.60-5.2); RDW 12.4 % (11.6-15.6); WHITE BLOOD COUNT 9.9 K/mm3 (4.0-10.0)
[2018-11-28 14:25] LABS: ALBUMIN 2.4 g/dl (3.4-5.0); ALK PHOS 135 U/L (45-117); ANION GAP 6 MMOL/L (8-16); BILIRUBIN,TOTAL 0.6 mg/dL (0.2-1); BLOOD UREA NITROGEN 15 mg/dL (7-18); CALCIUM 8.5 mg/dL (8.5-10.1); CHLORIDE 104 mmol/L (98-107); CO2 28 mmol/L (21-32); CREATININE 0.6 mg/dL (0.55-1.3); GLUCOSE,RANDOM 112 mg/dL (74-106); POTASSIUM 5.4 mmol/L (3.5-5.1); SGOT/AST 33 U/L (15-37); SGPT/ALT 21 U/L (13-61); SODIUM 138 mmol/L (136-145); TOT PROT 6.7 g/dl (6.4-8.2)
[2018-11-28] MEDS ORDERED: HALOPERIDOL LACTATE 5 MG/ML IM ONE (14:27)
[2018-11-28] MEDS ORDERED: HALOPERIDOL LACTATE 5 MG/ML ONE (14:40)
[2018-11-28] MEDS ORDERED: ACETAMINOPHEN 1000 MG/100 ML VIAL (NON FORMULARY) IVPB ONE (17:24)
[2018-11-28 17:43] LABS: INR 1.23 (0.83-1.09); PROTHROMBIN TIME (PATIENT) 14.6 SEC (9.7-13.0)
[2018-11-28] MEDS ORDERED: ACETAMINOPHEN INJECTION 100 ML IVPB ONE (17:52)
[2018-11-28] MEDS ORDERED: ACETAMINOPHEN 325 MG TABLET (FP) PO PRN (18:51)
--- NOTE | 2018-11-28 18:51 | PN ---
Teaching Attending Note Name of Resident: Prakash Jean ATTENDING PHYSICIAN STATEMENT I saw and evaluated the patient. I reviewed the resident's note and discussed the case with the resident. I agree with the resident's findings and plan as documented with exceptions below. SUBJECTIVE: 82 yof with PMHx of dementia, HLD, Rheumatoid arthritis on Methotrexate, TIA was seen in ED on 11/08 after witnessed fall, sent home after negative reported CT head/C-spine and rib xray. Patient was seen in ED on 11/15 with constipation and left sided chest pain, s/p CT A/P showing pleural effusion with suspected left 10th rib fracture, sent home on lidocaine patch/Tylenol for pain control. Over last few days patient was noted with cough with yellowish sputum and left sided chest pain with coughing, that prompted the family to bring patient to the ED. patient was noted with large left pleural effusion with collapse of most of the left lower lobe and oxygenating 88% on Room air that increased to 96 -96% with 2 L NC. Pulmonary was consulted in the ED. Currently patient with dementia, oriented to self, not co-operative with interview or exam, daughter providing all the details. patient also with recent speech/swallow eval 2 weeks ago that was reported non concerning. No fevers/chills, recent URI like illness, sick contact or flu like symptoms. 12 point ROS done, neg except above. OBJECTIVE: Vital Signs Period Temp Pulse Resp BP Sys/Singh Pulse Ox Last 24 Hr 97.8 F-98.2 F 79-91 18-19 0-124/0-87 85-98 Intake & Output 11/25/18 11/26/18 11/27/18 11/28/18 23:59 23:59 23:59 23:59 Weight 102 lb GENERAL: Awake, alert, oriented to self only, no acute distress HEAD: Normal with no signs of trauma. EYES: Pupils equal, round and reactive to light, extraocular movements intact, sclera anicteric, conjunctiva clear. No lid lag. EARS, NOSE, THROAT: Ears normal, nares patent, oropharynx clear without exudates. Moist mucous membranes. NECK: Soft, supple, no JVD LUNGS: poor exam, lack of co-operation or full effort markedly limited exam, decreased breath sounds left side HEART: S1S2 regular rate rhythm ABDOMEN: Soft, nontender, not distended, normoactive bowel sounds, no guarding, no rebound, no masses. MUSCULOSKELETAL: Normal range of motion at all joints. No bony deformities or tenderness. No CVA tenderness. UPPER EXTREMITIES: 2+ pulses, warm, well-perfused. No cyanosis. No clubbing. No peripheral edema. LOWER EXTREMITIES: 2+ pulses, warm, well-perfused. No calf tenderness. No peripheral edema. NEUROLOGICAL: Awake, confused, oriented to self only, moves all extremities freely, facial symmetry PSYCHIATRIC: non co-operative no eye contact, does not follow commands SKIN: Warm, dry, normal turgor, no rashes or lesions noted, normal capillary refill. Home Medications Medication Instructions Recorded Divalproex [Depakote -] 250 mg PO BID 11/09/18 Polyethylene Glycol 3350 [Miralax 17 gm PO DAILY #1 bottle 11/15/18 (For Bowel Prep) -] Sodium Phosphate,[place]-Dibasic 133 ml RC DAILY PRN #3 enema 11/15/18 [Fleet Enema] Active Medications Acetaminophen (Tylenol -) 650 mg PO Q6H PRN PRN Reason: PAIN LEVEL 4 - 6 Lidocaine (Lidoderm Patch -) 1 patch TP DAILY MELE Miscellaneous (Lidoderm Patch Removal) 1 each DAILY@2200 [facility] Risperidone (Risperdal -) 0.25 mg PO DAILY [facility] Laboratory Results - last 24 hr 11/28/18 11/28/18 11/28/18 13:40 13:40 14:47 WBC 9.9 RBC 3.51 L Hgb 11.4 Hct 33.7 MCV 96.1 H MCH 32.6 MCHC 33.9 RDW 12.4 Plt Count 324 D MPV 9.4 Absolute Neuts (auto) 8.0 Neutrophils % 81.2 Lymphocytes % 6.1 L D Monocytes % 11.5 H Eosinophils % 0.4 Basophils % 0.8 Nucleated RBC % 0 PT with INR INR Sodium 138 Potassium 5.4 H Chloride 104 Carbon Dioxide 28 Anion Gap 6 L BUN 15 Creatinine 0.6 Creat Clearance w eGFR > 60 Random Glucose 112 H Calcium 8.5 Total Bilirubin 0.6 AST 33 ALT 21 Alkaline Phosphatase 135 H Creatine Kinase 101 Troponin I < 0.02 Total Protein 6.7 Albumin 2.4 L Influenza A (Rapid) Negative Influenza B (Rapid) Negative 11/28/18 17:23 WBC RBC Hgb Hct MCV MCH MCHC RDW Plt Count MPV Absolute Neuts (auto) Neutrophils % Lymphocytes % Monocytes % Eosinophils % Basophils % Nucleated RBC % PT with INR 14.60 H INR 1.23 H Sodium Potassium Chloride Carbon Dioxide Anion Gap BUN Creatinine Creat Clearance w eGFR Random Glucose Calcium Total Bilirubin AST ALT Alkaline Phosphatase Creatine Kinase Troponin I Total Protein Albumin Influenza A (Rapid) Influenza B (Rapid) CT chest and CXR images and results reviewed EKG NSR QTc 409 ASSESSMENT AND PLAN: 82 yof with PMHx of dementia, HLD, Rheumatoid arthritis on Methotrexate, TIA, recent witnessed fall, admitted with moderate to large pleural effusion with almost LLL collapse -Moderate to large pleural effusion with almost LLL collapse, suspect from recent fall/Left 10th rib fracture, r/o hemothorax, malignancy, low suspicion for infectious process -Acute hypoxic respiratory failure -Hyperkalemia, suspected hemolyzed sample -Recent witnessed fall -Dementia -HLD -Rheumatoid arthritis on weekly methotrexate -h/o TIA Plan: O2 suppl, pain control with tylenol/lidocaine patch. Pulmonary consult. IR guided thoracentesis, diagnostic and symptom control, send fluid for cytology but low suspicion. Clinical presentation not consistent with infectious process. Monitor h/h. Incentive spirometry if patient co-operates Risperidone hs and prn for agitation (patient receives it at home prn) Frequent orientation to environment. Hold methotrexate/ASA. DVTPPX SCDs for now Will need PT eval and CM consult for dispo planning once medical issues improve Code status: Confirmed with daughter Claudia, who is HCP. COnfirms DNR/DNI. Dispo pending clinical improvement. Plan discussed with daughter and grand children at bedside in detail, all questions answered Total admit time spent 65 min.
--- NOTE | 2018-11-28 18:53 | HP ---
CHIEF COMPLAINT: pain in middle of chest, cough PCP: HISTORY OF PRESENT ILLNESS: Pt is a 82 yo F, with PMH of Alzheimer's ds, TIA, RA on methotrexate ( 2.5mg 6 tabs every ). Pt was initially seen in ed on 11/08 after fall and was sent home after a negative workup. Pt came back on nov [address] was done which shows 10th rib fracture on left side and was sent home with lidocain patch . NOw pt again came back because of cough from 7 days and pain in middle of chest which happens with cough. IN er repeat CT chest is done which shows L pleural effusion with septations. Pt denied fever, chills, sick contact, loss of weigh and appeite. Pt worked in [employer] for whole life. Pt was desaturationg in er so was started on o2. Maintaing saturation of 95%. Pt has base line severe dementia. lives with her daughter. patient recently had speech/swallow eval 2 weeks ago and as per daughter its normal ER course was notable for: (1)cbc, cmp (2)ct chest Recent Travel:no PAST MEDICAL HISTORY:as above PAST SURGICAL HISTORY: brain surgery for csf leak, hystrectomy for prolapse Social History: Smoking:no Alcohol:no Drugs: no Family History:un obtainaable Allergies No Known Drug Allergies Allergy (Verified 11/28/18 12:32) shellfish derived Adverse Reaction (Mild, Verified 11/28/18 12:32) Itching HOME MEDICATIONS: Home Medications Medication Instructions Recorded Divalproex [Depakote -] 250 mg PO BID 11/09/18 Polyethylene Glycol 3350 [Miralax 17 gm PO DAILY #1 bottle 11/15/18 (For Bowel Prep) -] Sodium Phosphate,[place]-Dibasic 133 ml RC DAILY PRN #3 enema 11/15/18 [Fleet Enema] REVIEW OF SYSTEMS as above rest un-obtaianable PHYSICAL EXAMINATION Vital Signs - 24 hr 11/28/18 11/28/18 11/28/18 12:24 12:49 14:44 Temperature 98.2 F Pulse Rate 79 Pulse Rate [ 91 H 90 Radial] Respiratory 19 18 18 Rate Blood Pressure 0/0 L Blood Pressure 115/87 124/81 [Right Arm] O2 Sat by Pulse 85 L 97 98 Oximetry (%) 11/28/18 18:33 Temperature 97.8 F Pulse Rate Pulse Rate [ 87 Radial] Respiratory 18 Rate Blood Pressure Blood Pressure 121/83 [Right Arm] O2 Sat by Pulse 98 Oximetry (%) GENERAL: Awake, doesn't follow commands HEAD: Normal with no signs of trauma. EYES: Pupils equal, round and reactive to light, EARS, NOSE, THROAT: Moist mucous membranes. NECK: Normal range of motion, supple without lymphadenopathy, JVD, or masses. LUNGS: decrease breath sound on left side HEART: Regular rate and rhythm, normal S1 and S2 without murmur, ABDOMEN: Soft, nontender, not distended, normoactive bowel sounds, no guarding, no rebound, no masses. UPPER EXTREMITIES: 2+ pulses, warm, well-perfused. LOWER EXTREMITIES: warm, well-perfused. SKIN: Warm, dry, Laboratory Results - last 24 hr 11/28/18 11/28/18 11/28/18 13:40 13:40 14:47 WBC 9.9 RBC 3.51 L Hgb 11.4 Hct 33.7 MCV 96.1 H MCH 32.6 MCHC 33.9 RDW 12.4 Plt Count 324 D MPV 9.4 Absolute Neuts (auto) 8.0 Neutrophils % 81.2 Lymphocytes % 6.1 L D Monocytes % 11.5 H Eosinophils % 0.4 Basophils % 0.8 Nucleated RBC % 0 PT with INR INR Sodium 138 Potassium 5.4 H Chloride 104 Carbon Dioxide 28 Anion Gap 6 L BUN 15 Creatinine 0.6 Creat Clearance w eGFR > 60 Random Glucose 112 H Calcium 8.5 Total Bilirubin 0.6 AST 33 ALT 21 Alkaline Phosphatase 135 H Creatine Kinase 101 Troponin I < 0.02 Total Protein 6.7 Albumin 2.4 L Influenza A (Rapid) Negative Influenza B (Rapid) Negative 11/28/18 17:23 WBC RBC Hgb Hct MCV MCH MCHC RDW Plt Count MPV Absolute Neuts (auto) Neutrophils % Lymphocytes % Monocytes % Eosinophils % Basophils % Nucleated RBC % PT with INR 14.60 H INR 1.23 H Sodium Potassium Chloride Carbon Dioxide Anion Gap BUN Creatinine Creat Clearance w eGFR Random Glucose Calcium Total Bilirubin AST ALT Alkaline Phosphatase Creatine Kinase Troponin I Total Protein Albumin Influenza A (Rapid) Influenza B (Rapid) ASSESSMENT/PLAN: Pt is a 82 yo F, with PMH of Alzheimer's ds, TIA, RA on methotrexate ( 2.5mg 6 tabs every ) came to hospital for cough and chest pain and found to have pleural effusion on left side. L side pleural effusion: likely secondary to 10th rib #, Less likely from infection, less likely malignent. NO h/o ca. No signs of infection. CT : left side effusion with collapse pain control with lidocaine patch and acetaminophen spirometry pulmonary consult IR consult for thoracaentesis : diagnostic vs theraputic. 02 to keep spo2> 90 avoid aspirin and heparin INR 1.23 pleural fluid gram stain, culture, glucose, ldh, ph ordered serum ldh ordered will talk to pathology tomorrow to get approval for cytology. Dementia: not on medication risperidone o.25mg hs for agitation not on meds for htn/hld RA-- on methotrexate 15mg hold for now fluid : orally allowed electrolyte: repeat sr k nutrition: npo after mid night dvt pro scd both legs gi pro: not required dispo: med surg Visit type - Emergency Visit Emergency Visit: Yes Care time: The patient presented to the Emergency Department on the above date and was hospitalized for further evaluation of their emergent condition. - New Patient This patient is new to me today: Yes Date on this admission: 11/28/18 - Critical Care Critical Care patient: No
[2018-11-28] MEDS ORDERED: risperiDONE 0.25 MG TABLET (FP) PO SCH (19:00)
[2018-11-28] MEDS ORDERED: risperiDONE 0.25 MG TABLET (FP) PO PRN (19:03)
[2018-11-28] MEDS ORDERED: risperiDONE 0.5 MG TABLET (FP) ONE (20:07)
[2018-11-28] MEDS: risperiDONE 0.25 MG TABLET (FP) PO SCH (20:21)
[2018-11-28 23:50] LABS: VENOUS PC02 39.1 mmHg (38-52); VENOUS PH 7.46 (7.32-7.42); VENOUS PO2 46.9 mmHg (28-48)
[2018-11-29 08:29] LABS: INR 1.27 (0.83-1.09)
[2018-11-29 08:31] LABS: ACTIVATED PTT 29.7 SECONDS (25.2-36.5)
[2018-11-29 08:44] LABS: BASO % 0.4 % (0-2.0); HEMATOCRIT 31.7 % (32.4-45.2); HEMOGLOBIN 10.6 GM/dL (10.7-15.3); MCH 31.9 pg (25.7-33.7); MCHC 33.4 g/dl (32.0-36.0); MEAN CELL VOLUME 95.4 fl (80-96); MEAN PLT VOLUME 9.9 fl (7.5-11.1); MONO % 10.9 % (3.8-10.2); NEUT % 79.7 % (42.8-82.8); PLATELET COUNT 319 K/MM3 (134-434); RBC 3.32 M/mm3 (3.60-5.2); RDW 12.2 % (11.6-15.6)
[2018-11-29 08:45] LABS: ALBUMIN 2.2 g/dl (3.4-5.0); ALK PHOS 129 U/L (45-117); ANION GAP 6 MMOL/L (8-16); BILIRUBIN,TOTAL 0.4 mg/dL (0.2-1); BLOOD UREA NITROGEN 12 mg/dL (7-18); CALCIUM 8.3 mg/dL (8.5-10.1); CHLORIDE 105 mmol/L (98-107); CO2 29 mmol/L (21-32); CREATININE 0.4 mg/dL (0.55-1.3); GLUCOSE,RANDOM 113 mg/dL (74-106); LDH 173 U/L (84-246); MAGNESIUM 2.1 mg/dL (1.8-2.4); PHOSPHOROUS 2.9 mg/dL (2.5-4.9); POTASSIUM 4.7 mmol/L (3.5-5.1); SGOT/AST 15 U/L (15-37); SGPT/ALT 19 U/L (13-61); SODIUM 139 mmol/L (136-145)
[2018-11-29] MEDS ORDERED: LIDOCAINE 5% TOPICAL PATCH TP SCH (10:00)
[2018-11-29] MEDS ORDERED: KCL 10 MEQ IVPB 10 MEQ/100 ML INFUS.BAG IVPB SCH (10:15)
--- NOTE | 2018-11-29 10:17 | PN ---
Teaching Attending Note Name of Resident: Prakash Jean ATTENDING PHYSICIAN STATEMENT I saw and evaluated the patient. I reviewed the resident's note and discussed the case with the resident. I agree with the resident's findings and plan as documented with exceptions below. SUBJECTIVE: Patient seen and examined. responds to name, unable to provide further details, comfortable in bed. OBJECTIVE: Vital Signs Period Temp Pulse Resp BP Sys/Singh Pulse Ox Last 24 Hr 97.8 F-98.3 F 21-91 15-21 0-130/0-87 85-98 Intake & Output 11/26/18 11/27/18 11/28/18 11/29/18 23:59 23:59 23:59 23:59 Weight 102 lb General: sitting in bed, no acute distress Chest: poor effort, limited exam due to lack of co-operation, unable to appreciate breath sounds left base abdomen:soft, NT, ND, positive bowel sounds Extremities: no edema Home Medications Medication Instructions Recorded Divalproex [Depakote -] 250 mg PO BID 11/09/18 Polyethylene Glycol 3350 [Miralax 17 gm PO DAILY #1 bottle 11/15/18 (For Bowel Prep) -] Sodium Phosphate,[place]-Dibasic 133 ml RC DAILY PRN #3 enema 11/15/18 [Fleet Enema] Active Medications Acetaminophen (Tylenol -) 650 mg PO Q6H PRN PRN Reason: PAIN LEVEL 4 - 6 Potassium Chloride (Potassium Chloride 10 Meq Premix Ivpb -) 10 meq in 100 mls @ 100 mls/hr IVPB Q60M [facility] Stop: 11/29/18 13:14 Lidocaine (Lidoderm Patch -) [address] [facility] Miscellaneous (Lidoderm Patch Removal) 1 each MC DAILY@2200 [facility] Risperidone (Risperdal -) 0.25 mg PO Q12H PRN PRN Reason: AGITATION Risperidone (Risperdal -) 0.[address] [facility] Last Admin: 11/28/18 20:21 Dose: 0.25 mg Laboratory Results - last 24 hr 11/28/18 11/28/18 11/28/18 13:40 13:40 14:47 WBC 9.9 RBC 3.51 L Hgb 11.4 Hct 33.7 MCV 96.1 H MCH 32.6 MCHC 33.9 RDW 12.4 Plt Count 324 D MPV 9.4 Absolute Neuts (auto) 8.0 Neutrophils % 81.2 Lymphocytes % 6.1 L D Monocytes % 11.5 H Eosinophils % 0.4 Basophils % 0.8 Nucleated RBC % 0 PT with INR INR PTT (Actin FS) VBG pH POC VBG pCO2 POC VBG pO2 Mixed VBG HCO3 Sodium 138 Potassium 5.4 H Chloride 104 Carbon Dioxide 28 Anion Gap 6 L BUN 15 Creatinine 0.6 Creat Clearance w eGFR > 60 Random Glucose 112 H Calcium 8.5 Phosphorus Magnesium Total Bilirubin 0.6 AST 33 ALT 21 Alkaline Phosphatase 135 H LD Total Creatine Kinase 101 Troponin I < 0.02 Total Protein 6.7 Albumin 2.4 L Influenza A (Rapid) Negative Influenza B (Rapid) Negative Blood Type Antibody Screen 11/28/18 11/28/18 11/28/18 17:06 17:23 17:45 WBC RBC Hgb Hct MCV MCH MCHC RDW Plt Count MPV Absolute Neuts (auto) Neutrophils % Lymphocytes % Monocytes % Eosinophils % Basophils % Nucleated RBC % PT with INR 14.60 H INR 1.23 H PTT (Actin FS) VBG pH POC VBG pCO2 POC VBG pO2 Mixed VBG HCO3 Sodium Potassium 4.5 Chloride Carbon Dioxide Anion Gap BUN Creatinine Creat Clearance w eGFR Random Glucose Calcium Phosphorus Magnesium Total Bilirubin AST ALT Alkaline Phosphatase LD Total Creatine Kinase Troponin I Total Protein Albumin Influenza A (Rapid) Influenza B (Rapid) Blood Type A POSITIVE Antibody Screen Negative 11/28/18 11/29/18 11/29/18 23:41 06:43 06:43 WBC 7.0 RBC 3.32 L Hgb 10.6 L Hct 31.7 L MCV 95.4 MCH 31.9 MCHC 33.4 RDW 12.2 Plt Count 319 MPV 9.9 Absolute Neuts (auto) 5.6 Neutrophils % 79.7 Lymphocytes % 8.0 D Monocytes % 10.9 H Eosinophils % 1.0 D Basophils % 0.4 Nucleated RBC % 0 PT with INR 15.00 H INR 1.27 H PTT (Actin FS) 29.7 VBG pH 7.46 H POC VBG pCO2 39.1 POC VBG pO2 46.9 D Mixed VBG HCO3 27.3 H Sodium Potassium Chloride Carbon Dioxide Anion Gap BUN Creatinine Creat Clearance w eGFR Random Glucose Calcium Phosphorus Magnesium Total Bilirubin AST ALT Alkaline Phosphatase LD Total Creatine Kinase Troponin I Total Protein Albumin Influenza A (Rapid) Influenza B (Rapid) Blood Type Antibody Screen 11/29/18 06:43 WBC RBC Hgb Hct MCV MCH MCHC RDW Plt Count MPV Absolute Neuts (auto) Neutrophils % Lymphocytes % Monocytes % Eosinophils % Basophils % Nucleated RBC % PT with INR INR PTT (Actin FS) VBG pH POC VBG pCO2 POC VBG pO2 Mixed VBG HCO3 Sodium 139 Potassium 4.7 Chloride 105 Carbon Dioxide 29 Anion Gap 6 L BUN 12 Creatinine 0.4 L Creat Clearance w eGFR > 60 Random Glucose 113 H Calcium 8.3 L Phosphorus 2.9 Magnesium 2.1 Total Bilirubin 0.4 AST 15 ALT 19 Alkaline Phosphatase 129 H LD Total 173 Creatine Kinase Troponin I Total Protein 6.0 L Albumin 2.2 L Influenza A (Rapid) Influenza B (Rapid) Blood Type Antibody Screen CXR 11/29 image and results reviewed ASSESSMENT AND PLAN: 82 yof with PMHx of dementia, HLD, Rheumatoid arthritis on Methotrexate, TIA, recent witnessed fall, admitted with moderate to large pleural effusion with almost LLL collapse -Moderate to large pleural effusion with almost LLL collapse, suspect from recent fall/Left 10th rib fracture, r/o hemothorax, malignancy, low suspicion for infectious process -Acute hypoxic respiratory failure -Hyperkalemia, suspected hemolyzed sample -Recent witnessed fall -Dementia -HLD -Rheumatoid arthritis on weekly methotrexate -h/o TIA Plan: Oxygenating well. IR guided thoracentesis. Send fluid studies including cytology. Clinical presentation not consistent with infectious process. Monitor h/h. Pulmonary input. Incentive spirometry if patient co-operates Risperidone hs and prn for agitation (patient receives it at home prn) Frequent orientation to environment. Hold methotrexate/ASA. DVTPPX SCDs for now PT eval and CM consult for dispo planning Code status: DNR/DNI Dispo in 1-2 days post thoracocentesis if no concerns and w/u neg.
--- NOTE | 2018-11-29 11:48 | PN ---
Physical Exam: SUBJECTIVE: Patient seen and examined pt was lying comforatbly in bed in er. on room air maintaining a saturation of 95%. No respiratory distress OBJECTIVE: Vital Signs Period Temp Pulse Resp BP Sys/Singh Pulse Ox Last 24 Hr 97.8 F-98.3 F 21-91 15-21 0-130/0-87 85-98 GENERAL: Awake, doesn't follow commands HEAD: Normal with no signs of trauma. EYES: Pupils equal, round and reactive to light, EARS, NOSE, THROAT: Moist mucous membranes. NECK: Normal range of motion, supple without lymphadenopathy, JVD, or masses. LUNGS: decrease breath sound on left side HEART: Regular rate and rhythm, normal S1 and S2 without murmur, ABDOMEN: Soft, nontender, not distended, normoactive bowel sounds, no guarding, no rebound, no masses. UPPER EXTREMITIES: 2+ pulses, warm, well-perfused. LOWER EXTREMITIES: warm, well-perfused. SKIN: Warm, Laboratory Results - last 24 hr 11/28/18 11/28/18 11/28/18 13:40 13:40 14:47 WBC 9.9 RBC 3.51 L Hgb 11.4 Hct 33.7 MCV 96.1 H MCH 32.6 MCHC 33.9 RDW 12.4 Plt Count 324 D MPV 9.4 Absolute Neuts (auto) 8.0 Neutrophils % 81.2 Lymphocytes % 6.1 L D Monocytes % 11.5 H Eosinophils % 0.4 Basophils % 0.8 Nucleated RBC % 0 PT with INR INR PTT (Actin FS) VBG pH POC VBG pCO2 POC VBG pO2 Mixed VBG HCO3 Sodium 138 Potassium 5.4 H Chloride 104 Carbon Dioxide 28 Anion Gap 6 L BUN 15 Creatinine 0.6 Creat Clearance w eGFR > 60 Random Glucose 112 H Calcium 8.5 Phosphorus Magnesium Total Bilirubin 0.6 AST 33 ALT 21 Alkaline Phosphatase 135 H LD Total Creatine Kinase 101 Troponin I < 0.02 Total Protein 6.7 Albumin 2.4 L Influenza A (Rapid) Negative Influenza B (Rapid) Negative Blood Type Antibody Screen 11/28/18 11/28/18 11/28/18 17:06 17:23 17:45 WBC RBC Hgb Hct MCV MCH MCHC RDW Plt Count MPV Absolute Neuts (auto) Neutrophils % Lymphocytes % Monocytes % Eosinophils % Basophils % Nucleated RBC % PT with INR 14.60 H INR 1.23 H PTT (Actin FS) VBG pH POC VBG pCO2 POC VBG pO2 Mixed VBG HCO3 Sodium Potassium 4.5 Chloride Carbon Dioxide Anion Gap BUN Creatinine Creat Clearance w eGFR Random Glucose Calcium Phosphorus Magnesium Total Bilirubin AST ALT Alkaline Phosphatase LD Total Creatine Kinase Troponin I Total Protein Albumin Influenza A (Rapid) Influenza B (Rapid) Blood Type A POSITIVE Antibody Screen Negative 11/28/18 11/29/18 11/29/18 23:41 06:43 06:43 WBC 7.0 RBC 3.32 L Hgb 10.6 L Hct 31.7 L MCV 95.4 MCH 31.9 MCHC 33.4 RDW 12.2 Plt Count 319 MPV 9.9 Absolute Neuts (auto) 5.6 Neutrophils % 79.7 Lymphocytes % 8.0 D Monocytes % 10.9 H Eosinophils % 1.0 D Basophils % 0.4 Nucleated RBC % 0 PT with INR 15.00 H INR 1.27 H PTT (Actin FS) 29.7 VBG pH 7.46 H POC VBG pCO2 39.1 POC VBG pO2 46.9 D Mixed VBG HCO3 27.3 H Sodium Potassium Chloride Carbon Dioxide Anion Gap BUN Creatinine Creat Clearance w eGFR Random Glucose Calcium Phosphorus Magnesium Total Bilirubin AST ALT Alkaline Phosphatase LD Total Creatine Kinase Troponin I Total Protein Albumin Influenza A (Rapid) Influenza B (Rapid) Blood Type Antibody Screen 11/29/18 06:43 WBC RBC Hgb Hct MCV MCH MCHC RDW Plt Count MPV Absolute Neuts (auto) Neutrophils % Lymphocytes % Monocytes % Eosinophils % Basophils % Nucleated RBC % PT with INR INR PTT (Actin FS) VBG pH POC VBG pCO2 POC VBG pO2 Mixed VBG HCO3 Sodium 139 Potassium 4.7 Chloride 105 Carbon Dioxide 29 Anion Gap 6 L BUN 12 Creatinine 0.4 L Creat Clearance w eGFR > 60 Random Glucose 113 H Calcium 8.3 L Phosphorus 2.9 Magnesium 2.1 Total Bilirubin 0.4 AST 15 ALT 19 Alkaline Phosphatase 129 H LD Total 173 Creatine Kinase Troponin I Total Protein 6.0 L Albumin 2.2 L Influenza A (Rapid) Influenza B (Rapid) Blood Type Antibody Screen Active Medications Generic Name Dose Route Start Last Admin Trade Name Freq PRN Reason Stop Dose Admin Acetaminophen 650 mg 11/28/18 18:51 Tylenol - PO Q6H PRN PAIN LEVEL 4 - 6 Lidocaine 1 patch 11/29/18 10:00 Lidoderm Patch - TP DAILY [facility] Miscellaneous 1 each 11/29/18 22:00 Lidoderm Patch Removal MC DAILY@2200 [facility] Risperidone 0.25 mg 11/28/18 19:03 Risperdal - PO Q12H PRN AGITATION Risperidone 0.25 mg 11/28/18 20:00 11/28/18 20:21 Risperdal - PO 0.25 mg 2000 [facility] Administration ASSESSMENT/PLAN: Pt is a 82 yo F, with PMH of Alzheimer's ds, TIA, RA on methotrexate ( 2.5mg 6 tabs every ) came to hospital for cough and chest pain and found to have pleural effusion on left side. L side pleural effusion: likely secondary to 10th rib #, Less likely from infection, less likely malignent. NO h/o ca. No signs of infection. CT : left side effusion with collapse pain control with lidocaine patch and acetaminophen spirometry IR consult for thoracaentesis : diagnostic and theraputic tap 02 to keep spo2> 90 avoid aspirin and heparin pleural fluid gram stain, culture, glucose, ldh, ph ordered serum ldh ordered pathology agreed for cytology. IR informed to send the tests Dementia: not on medication risperidone o.25mg hs for agitation and prn not on meds for htn/hld RA-- on methotrexate 15mg hold for now in home on depakote for hand tremors fluid : npo today for procedure electrolyte: repeat in am, repeat cxr after tap nutrition: start regular diet after pleural tap dvt pro scd both legs gi pro: not required dispo: med surg Visit type - Emergency Visit Emergency Visit: Yes ED Registration Date: 11/28/18 Care time: The patient presented to the Emergency Department on the above date and was hospitalized for further evaluation of their emergent condition. - New Patient This patient is new to me today: No - Critical Care Critical Care patient: No
[2018-11-29] MEDS ORDERED: KCL 10 MEQ IVPB 10 MEQ/100 ML INFUS.BAG IVPB ONE (11:58)
--- NOTE | 2018-11-29 12:42 | CONSULT ---
Admitting History and Physical - Primary Care Physician PCP: Jesus Bahena - Admission History of Present Illness: Pt is a 82 yo F, with PMH of Alzheimer's ds, TIA, RA on methotrexate, came to hospital for cough and chest pain and found to have pleural effusion on left side. This is my first consult for this pt. Chart reviewed. Attended ED to evaluate pt, but she was getting a Thoracentesis. 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
--- NOTE | 2018-11-29 13:51 | CON.PULM ---
Consult Consult Specialty:: PULM/CCM Referred by:: PEGGY Reason for Consultation:: Abnormal CT chest - History of Present Illness Chief Complaint: SOB, CP History of Present Illness: 82 F, Alzheimer's dementia, TIA, RA on methotrexate ( 2.5mg 6 tabs every ), S/P mechanical fall and evaluated in the ER on 11/08. Eventually found to have 10th rib fracture on left. Returns to the ER due to 1 week of worsening cough and chest pain. No overt fever or chills. No travel history or sick contacts. No reported hemoptysis. 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 Cardio/Vascular: Yes: Hyperlipdemia, Other (PVD) Rheumatology: Yes: Rheumatoid Arthritis - Alcohol/Substance Use Hx Alcohol Use: No History of Substance Use: reports: None - Smoking History Smoking history: Never smoked Have you smoked in the past 12 months: No Aproximately how many cigarettes per day: 0 - Social History ADL: Family Assistance History of Recent Travel: No Home Medications - Allergies Allergies/Adverse Reactions: Allergies Allergy/AdvReac Type Severity Reaction Status Date / Time No Known Drug Allergies Allergy Verified 11/28/18 12:32 shellfish derived AdvReac Mild Itching Verified 11/28/18 12:32 - Home Medications Home Medications: Ambulatory Orders Divalproex [Depakote -] 250 mg PO DAILY 11/09/18 Polyethylene Glycol 3350 [Miralax (For Bowel Prep) -] 17 gm PO DAILY #1 bottle 11/15/18 Sodium Phosphate,[place]-Dibasic [Fleet Enema] 133 ml RC DAILY PRN #3 enema Family Disease History - Family Disease History Family Disease History: Other: Brother (dementia) Review of Systems - Review of Systems Constitutional: reports: Malaise. denies: Chills, Fever, Night Sweats Eyes: reports: No Symptoms HENT: reports: No Symptoms Neck: reports: No Symptoms Cardiovascular: reports: Chest Pain, Shortness of Breath. denies: Edema, Palpitations Respiratory: reports: Cough, SOB, SOB on Exertion. denies: Hemoptysis, Snoring , Wheezing Gastrointestinal: reports: Constipation Genitourinary: reports: No Symptoms Breasts: reports: No Symptoms Reported Musculoskeletal: reports: No Symptoms Integumentary: reports: No Symptoms Neurological: reports: No Symptoms Endocrine: reports: No Symptoms Hematology/Lymphatic: reports: No Symptoms Psychiatric: reports: No Symptoms Physical Exam Vital Sings: Vital Signs Temperature 98.3 F 11/29/18 09:47 Pulse Rate 21 L 11/29/18 09:47 Respiratory Rate 21 H 11/29/18 09:47 Blood Pressure 120/73 11/29/18 09:47 O2 Sat by Pulse Oximetry (%) 98 11/29/18 06:08 Constitutional: Yes: No Distress, Thin Eyes: Yes: Conjunctiva Clear, EOM Intact HENT: Yes: Atraumatic, Normocephalic Neck: Yes: Supple, Trachea Midline Cardiovascular: Yes: Regular Rate and Rhythm Respiratory: Yes: Cough, Diminished, Dullness, On Nasal O2, Rhonchi, SOB, SOB on Exertion. No: Accessory Muscle Use, Rales, Stridor, Tachypnea, Wheezes ...Inspection: Yes: WNL ...Clubbing: No Gastrointestinal: Yes: Normal Bowel Sounds, Soft Renal/: Yes: WNL Musculoskeletal: Yes: WNL Extremities: Yes: WNL Edema: No Peripheral Pulses WNL: Yes Integumentary: Yes: WNL Neurological: Yes: WNL, Alert Psychiatric: Yes: Alert Labs: CBC, BMP 11/29/18 06:43 11/29/18 06:43 Imaging - Results Chest X-ray: Report Reviewed, Image Reviewed Cat Scan: Report Reviewed, Image Reviewed Problem List - Problems (1) Pleural effusion Code(s): J90 - PLEURAL EFFUSION, NOT ELSEWHERE CLASSIFIED (2) Constipation Code(s): K59.00 - CONSTIPATION, UNSPECIFIED Qualifiers: Constipation type: unspecified constipation type Qualified Code(s): K59.00 - Constipation, unspecified (3) Rheumatoid arthritis Code(s): M06.9 - RHEUMATOID ARTHRITIS, UNSPECIFIED (4) Rib fracture Code(s): S22.39XA - FRACTURE OF ONE RIB, UNSP SIDE, INIT FOR CLOS FX Qualifiers: Encounter type: subsequent encounter Rib fracture type: single rib Fracture type: closed Laterality: unspecified laterality Fracture healing: with routine healing Qualified Code(s): S22.39XD - Fracture of one rib, unspecified side, subsequent encounter for fracture with routine healing (5) Dementia Code(s): F03.90 - UNSPECIFIED DEMENTIA WITHOUT BEHAVIORAL DISTURBANCE Qualifiers: Dementia type: unspecified type Dementia behavioral disturbance: without behavioral disturbance Qualified Code(s): F03.90 - Unspecified dementia without behavioral disturbance (6) HTN (hypertension) Code(s): I10 - ESSENTIAL (PRIMARY) HYPERTENSION (7) Hyperlipidemia Code(s): E78.5 - HYPERLIPIDEMIA, UNSPECIFIED (8) Osteoarthritis Code(s): M19.90 - UNSPECIFIED OSTEOARTHRITIS, UNSPECIFIED SITE (9) PVD (peripheral vascular disease) Code(s): I73.9 - PERIPHERAL VASCULAR DISEASE, UNSPECIFIED Assessment/Plan IR has been consulted for pleural effusion decompression O2 as needed to maintain saturation, currently NAD on RA No clear indication of infectious process, would continue to monitor off ABX Fall precautions Will need to follow pleural assay and analysis Pain control Will follow Thank you. Dr Rangel
--- NOTE | 2018-11-29 15:42 | EKG ---
Test Reason : Blood Pressure : / mmHG Vent. Rate : 085 BPM Atrial Rate : 085 BPM P-R Int : 154 ms QRS Dur : 082 ms QT Int : 344 ms P-R-T Axes : 028 000 034 degrees QTc Int : 409 ms POOR DATA QUALITY, INTERPRETATION MAY BE ADVERSELY AFFECTED NORMAL SINUS RHYTHM POSSIBLE ANTERIOR INFARCT , AGE UNDETERMINED ABNORMAL ECG WHEN COMPARED WITH ECG OF 08-NOV-2018 23:54, NO SIGNIFICANT CHANGE WAS FOUND Confirmed by MIRANDA SCHULTZ, BROOKE ([id number]) on 11/29/2018 3:42:09 PM Referred By: Confirmed By:BROOKE JEAN MD
[2018-11-29 17:37] LABS: BODY FLUID MACROPHAGES 20 %; BODY FLUID MESOTHELIAL 20 %; BODYL FLD EOSINOPHIL 1 %
[2018-11-29] MEDS ORDERED: risperiDONE 0.5 MG TABLET (FP) ONE (20:04)
[2018-11-29] MEDS ORDERED: ACETAMINOPHEN 325 MG TABLET (FP) ONE (20:04)
[2018-11-29] MEDS: risperiDONE 0.25 MG TABLET (FP) PO SCH (20:15)
[2018-11-29] MEDS ORDERED: LIDOCAINE PATCH REMOVAL MC SCH (22:00)
[2018-11-30] MEDS ORDERED: ACETAMINOPHEN 325 MG TABLET (FP) PO PRN (01:10)
[2018-11-30] MEDS ORDERED: risperiDONE 0.25 MG TABLET (FP) PO PRN (01:10)
[2018-11-30] MEDS ORDERED: LIDOCAINE PATCH REMOVAL MC SCH ×2 (01:10→10:00)
[2018-11-30] MEDS ORDERED: LIDOCAINE 5% TOPICAL PATCH TP SCH (01:30)
[2018-11-30 06:53] LABS: BASO % 0.6 % (0-2.0); EOS % 0.9 % (0-4.5); HEMATOCRIT 32.3 % (32.4-45.2); HEMOGLOBIN 10.8 GM/dL (10.7-15.3); LYMPH % 10.3 % (8-40); MCH 31.6 pg (25.7-33.7); MCHC 33.6 g/dl (32.0-36.0); MEAN CELL VOLUME 94.1 fl (80-96); MEAN PLT VOLUME 9.1 fl (7.5-11.1); MONO % 11.2 % (3.8-10.2); PLATELET COUNT 354 K/MM3 (134-434); RBC 3.43 M/mm3 (3.60-5.2); RDW 12.2 % (11.6-15.6); WHITE BLOOD COUNT 6.6 K/mm3 (4.0-10.0)
[2018-11-30 07:26] LABS: ANION GAP 4 MMOL/L (8-16); BLOOD UREA NITROGEN 11 mg/dL (7-18); CALCIUM 8.3 mg/dL (8.5-10.1); CHLORIDE 105 mmol/L (98-107); CO2 28 mmol/L (21-32); CREATININE 0.5 mg/dL (0.55-1.3); GLUCOSE,RANDOM 116 mg/dL (74-106); POTASSIUM 4.4 mmol/L (3.5-5.1); SODIUM 137 mmol/L (136-145)
[2018-11-30] MEDS: LIDOCAINE 5% TOPICAL PATCH TP SCH (10:19)
--- NOTE | 2018-11-30 12:38 | PN ---
Progress Note (short form) - Note Progress Note: PULMONARY UNABLE TO PROVIDE HX PT HAS ALZ DEMENTIA FAMILY PRESENT AFEBRILE/GRIMACING ANICTERIC DIMINISHED BREATH SOUNDS LEFT BASE UP 1/2 S1S2 BS+ NO EDEMA/SCD'S RADIOGRAPHS/CT/LABS/MEDS/NOTES REVIEWED (1) Pleural effusion Code(s): J90 - PLEURAL EFFUSION, NOT ELSEWHERE CLASSIFIED (2) Constipation Code(s): K59.00 - CONSTIPATION, UNSPECIFIED Qualifiers: Constipation type: unspecified constipation type Qualified Code(s): K59.00 - Constipation, unspecified (3) Rheumatoid arthritis Code(s): M06.9 - RHEUMATOID ARTHRITIS, UNSPECIFIED (4) Rib fracture Code(s): S22.39XA - FRACTURE OF ONE RIB, UNSP SIDE, INIT FOR CLOS FX Qualifiers: Encounter type: subsequent encounter Rib fracture type: single rib Fracture type: closed Laterality: unspecified laterality Fracture healing: with routine healing Qualified Code(s): S22.39XD - Fracture of one rib, unspecified side, subsequent encounter for fracture with routine healing (5) Dementia Code(s): F03.90 - UNSPECIFIED DEMENTIA WITHOUT BEHAVIORAL DISTURBANCE Qualifiers: Dementia type: unspecified type Dementia behavioral disturbance: without behavioral disturbance Qualified Code(s): F03.90 - Unspecified dementia without behavioral disturbance (6) HTN (hypertension) Code(s): I10 - ESSENTIAL (PRIMARY) HYPERTENSION (7) Hyperlipidemia Code(s): E78.5 - HYPERLIPIDEMIA, UNSPECIFIED (8) Osteoarthritis Code(s): M19.90 - UNSPECIFIED OSTEOARTHRITIS, UNSPECIFIED SITE (9) PVD (peripheral vascular disease) Code(s): I73.9 - PERIPHERAL VASCULAR DISEASE, UNSPECIFIED TRAUMATIC HEMOTHORAX WILL REQUIRE T-SURG OPINION NEED TO DISCUSS WITH DAUGHTER ALE RUGGIERO MD
--- NOTE | 2018-11-30 13:27 | CONSULT ---
Admitting History and Physical - Primary Care Physician PCP: Jesus Bahena - Admission History of Present Illness: 82 F, Alzheimer's dementia, TIA, RA on methotrexate, S/P mechanical fall and evaluated in the ER on 11/08. Eventually found to have 10th rib fracture on left. Returns to the ER due to 1 week of worsening cough and chest pain. Family report that pt was walking, feeding herself before admission but with dementia/communication deficits/mumbled. She was recently taken off many meds by [facility] Brain dept, and was placed on Resperdol PRN. Pt is more lethargic and they are concerned that is medication related. Pt was on reg diet/ thin liquid at home with slow intake, and weight loss. 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 Cardiovascular: Yes: Hyperlipdemia, Other (PVD) Rheumatology: Yes: Rheumatoid Arthritis - Advance Directives Advance Directives: Yes: DNR - Smoking History Smoking history: Never smoked Have you smoked in the past 12 months: No Aproximately how many cigarettes per day: 0 - Alcohol/Substance Use Hx Alcohol Use: No History of Substance Use: reports: None - Social History ADL: Family Assistance History of Recent Travel: No History - Admission Reason For Visit: PLEURAL EFFUSION - Diagnostics X-ray: Report Reviewed - General Mental Status: Lethargic Attention: Severe Impairment Ability to Follow Directions: Poor Head/Neck Control: Needs Assist - Hearing Hearing: Normal Speech Evaluation - Communication Primary Language: NAMIBIAN Communication: Yes: Non-Communicable - Swallow Evaluation/Bedside Assessment Current Nutritional Intake: Regular, Thin Liquids Dentition: Yes: Missing Teeth Laryngeal Movement: Able to Palpate Bolus Size: Small Oral Prep Time: Increased Timing of Swallow: Delayed Coughing/Throat Clear: No Change in Voice: No Recommendations - Speech Evaluation, Impression/Plan Impression: Lethargic but slightly arousable to assess swallow with brisk swallow elicited. - Disposition Discharge to: To be Determined - Dysphagia Impressions/Plan *Silent aspiration: cannot be R/O at bedside Dysphagia Treatment Plan: Small Bites, Chin Tuck/Down, Clear Pocket Food, Trial Feedings, Facilitative Feeding, Safe Rate, 1/2 tsp. at a time, Elevate HOB during feed, Other (Feed only if alert) - Recommendations Diet Consistency: Dysphagia Pureed Medication Administration: Crushed with applesauce Liquids: Thin Liquids Supplement: Ensure, Magic Cup
--- NOTE | 2018-11-30 14:01 | PN ---
Physical Exam: SUBJECTIVE: Patient seen and examined, oriented to self, does not participate in interview or follows instructions OBJECTIVE: Vital Signs Period Temp Pulse Resp BP Sys/Singh Pulse Ox Last 24 Hr 98.1 F-99.7 F 80-105 17-20 119-147/61-80 93-96 GENERAL: The patient is awake, alert, oriented to self, in no acute distress HEAD: Normal with no signs of trauma. EYES: PERRL, extraocular movements intact, sclera anicteric, conjunctiva clear. No ptosis. ENT: Ears normal, nares patent, oropharynx clear without exudates, moist mucous membranes. NECK: Soft, supple, no JVD LUNGS: air entry appreciated Right lung, absent breath sounds left lung base HEART: Regular rate and rhythm, S1, S2 ABDOMEN: Soft, nontender, nondistended, normoactive bowel sounds, no guarding, no rebound EXTREMITIES: 2+ pulses, warm, well-perfused, no edema. SKIN: Warm, dry, normal turgor, no rashes or lesions noted Laboratory Results - last 24 hr 11/29/18 11/29/18 11/30/18 15:00 15:00 05:45 WBC RBC Hgb Hct MCV MCH MCHC RDW Plt Count MPV Absolute Neuts (auto) Neutrophils % Lymphocytes % Monocytes % Eosinophils % Basophils % Nucleated RBC % Sodium 137 Potassium 4.4 Chloride 105 Carbon Dioxide 28 Anion Gap 4 L BUN 11 Creatinine 0.5 L Creat Clearance w eGFR > 60 POC Glucometer Random Glucose 116 H Calcium 8.3 L Fluid Source Left pleural POC Fluid pH Cancelled Fluid WBC 4,622 Fluid RBC 329,089 Fluid Neutrophils 27 Fluid Lymphocytes 32 Pleural Eosinophils 1 Pleural Macrophages 20 Pleural Mesothelial 20 11/30/18 11/30/18 05:48 06:45 WBC 6.6 RBC 3.43 L Hgb 10.8 Hct 32.3 L MCV 94.1 MCH 31.6 MCHC 33.6 RDW 12.2 Plt Count 354 MPV 9.1 Absolute Neuts (auto) 5.0 Neutrophils % 77.0 Lymphocytes % 10.3 D Monocytes % 11.2 H Eosinophils % 0.9 Basophils % 0.6 Nucleated RBC % 0 Sodium Potassium Chloride Carbon Dioxide Anion Gap BUN Creatinine Creat Clearance w eGFR POC Glucometer 123 Random Glucose Calcium Fluid Source POC Fluid pH Fluid WBC Fluid RBC Fluid Neutrophils Fluid Lymphocytes Pleural Eosinophils Pleural Macrophages Pleural Mesothelial Active Medications Generic Name Dose Route Start Last Admin Trade Name Freq PRN Reason Stop Dose Admin Acetaminophen 650 mg 11/30/18 01:10 Tylenol - PO Q6H PRN PAIN LEVEL 4 - 6 Lidocaine 1 patch 11/30/18 10:00 11/30/18 10:19 Lidoderm Patch - TP 1 patch DAILY [facility] Administration Miscellaneous 1 each 11/30/18 22:00 Lidoderm Patch Removal MC HS [facility] Risperidone 0.25 mg 11/30/18 01:10 Risperdal - PO Q12H PRN AGITATION Risperidone 0.25 mg 11/30/18 20:00 Risperdal - PO 2000 [facility] Microbiology 11/29/18 15:00 Pleural Fluid Body Fluid Culture - Preliminary NO AEROBIC GROWTH, 24 HRS 11/29/18 15:00 Pleural Fluid AFB Smear Concentration - Preliminary 11/29/18 15:00 Pleural Fluid Mycobacterial Culture - Preliminary ASSESSMENT/PLAN: 82 yof with PMHx of dementia, HLD, Rheumatoid arthritis on Methotrexate, TIA, recent witnessed fall, admitted with moderate to large pleural effusion with almost LLL collapse -Moderate to large pleural effusion with almost LLL collapse, suspect harmorrhagic from recent fall/Left 10th rib fracture, r/o hemothorax, malignancy , low suspicion for infectious process -Acute hypoxic respiratory failure -Hyperkalemia, suspected hemolyzed sample -Recent witnessed fall -Dementia -HLD -Rheumatoid arthritis on weekly methotrexate -h/o TIA Plan: Oxygenating well. IR guided thoracentesis s/p 560 ml serosanguinous fluid. Follow up pleural fluid studies/cytology. Clinical presentation not consistent with infectious process. h/h stable. Pulmonary input noted, CT surgery input. . Incentive spirometry if patient co-operates Risperidone hs and prn for agitation (patient receives it at home prn) Frequent orientation to environment. Hold methotrexate/ASA. DVTPPX SCDs for now PT eval and CM consult for dispo planning Code status: DNR/DNI Dispo in 1-2 days post thoracocentesis if no concerns and disposition arranged Plan discussed with patient, all questions answered. Visit type - Emergency Visit Emergency Visit: Yes ED Registration Date: 11/28/18 Care time: The patient presented to the Emergency Department on the above date and was hospitalized for further evaluation of their emergent condition. - New Patient This patient is new to me today: No - Critical Care Critical Care patient: No - Discharge Referral Referred to [facility] Med P.C.: No
--- NOTE | 2018-11-30 15:55 | PN ---
Progress Note, Physician History of Present Illness: seen and examined at bedside. pt is demented difficult to interview. no acute event. - Current Medication List Current Medications: Active Medications Acetaminophen (Tylenol -) 650 mg PO Q6H PRN PRN Reason: PAIN LEVEL 4 - 6 Lidocaine (Lidoderm Patch -) 1 patch TP DAILY [facility] Last Admin: 11/30/18 10:19 Dose: 1 patch Miscellaneous (Lidoderm Patch Removal) 1 each [facility] Risperidone (Risperdal -) 0.25 mg PO Q12H PRN PRN Reason: AGITATION Risperidone (Risperdal -) 0.25 mg PO 1999 [facility] - Objective Vital Signs: Vital Signs Temperature 99.7 F H 11/30/18 10:00 Pulse Rate 84 11/30/18 10:45 Respiratory Rate 18 11/30/18 10:00 Blood Pressure 119/61 11/30/18 10:00 O2 Sat by Pulse Oximetry (%) 96 11/30/18 10:45 Constitutional: Yes: No Distress Cardiovascular: Yes: Regular Rate and Rhythm, S1, S2 Respiratory: Yes: Other (absent breath sound in L lung) Edema: No Neurological: Yes: Confusion Labs: CBC, BMP 11/30/18 06:45 11/30/18 05:45 INR, PTT INR 1.27 (0.83-1.09) H 11/29/18 06:43 Impression/Plan Impression/Plan: 82 yo F admitted for pleural effusion 2/2 rib fracture. -traumatic L pleural effusion s/p thoracentesis -dementia -RA supplemental o2 maintain Sat > 92 f/u on pleural fluid study CT surgery consult cont. risperidone Visit type - Emergency Visit Emergency Visit: No - New Patient This patient is new to me today: Yes Date on this admission: 11/30/18 - Critical Care Critical Care patient: No - Discharge Referral Referred to [facility] Med [facility].C[facility] No
--- NOTE | 2018-11-30 16:53 | PROC ---
Chest Tube Insertion Risks and Benefits Explained: Yes Chest tube #1 Indication: Hemothorax Chest Tube Location: Left Posterior Anesthesia: 1% Lidocaine Sterile Technique: Yes Tube Sutured to Skin: Yes Vaseline gauze dressing: No Chest Tube Collection System: Pleur-Evac Suction: Yes Drainage, Color/Appearance: Serosanguinous
--- NOTE | 2018-11-30 17:54 | PN ---
Progress Note (short form) - Note Progress Note: Thoracic Surgery: Full consult to follow. CT to suction. Daily CXR. Pain management (be careful with narcotics since has dementia).
[2018-11-30] MEDS ORDERED: risperiDONE 0.25 MG TABLET (FP) PO SCH (20:00)
[2018-11-30] MEDS: LIDOCAINE PATCH REMOVAL MC SCH (21:47)
[2018-12-01 08:54] LABS: BASO % 0.4 % (0-2.0); EOS % 0.4 % (0-4.5); HEMATOCRIT 31.5 % (32.4-45.2); HEMOGLOBIN 10.6 GM/dL (10.7-15.3); MCH 31.6 pg (25.7-33.7); MCHC 33.6 g/dl (32.0-36.0); MEAN PLT VOLUME 9.2 fl (7.5-11.1); MONO % 10.3 % (3.8-10.2); NEUT % 78.9 % (42.8-82.8); PLATELET COUNT 373 K/MM3 (134-434); RBC 3.35 M/mm3 (3.60-5.2); RDW 12.6 % (11.6-15.6); WHITE BLOOD COUNT 7.4 K/mm3 (4.0-10.0)
[2018-12-01] MEDS: LIDOCAINE 5% TOPICAL PATCH TP SCH (09:06)
[2018-12-01 09:57] LABS: ANION GAP 8 MMOL/L (8-16); BLOOD UREA NITROGEN 12 mg/dL (7-18); CHLORIDE 106 mmol/L (98-107); CO2 24 mmol/L (21-32); CREATININE 0.5 mg/dL (0.55-1.3); GLUCOSE,RANDOM 127 mg/dL (74-106); POTASSIUM 4.4 mmol/L (3.5-5.1); SODIUM 138 mmol/L (136-145)
--- NOTE | 2018-12-01 12:08 | PN ---
Progress Note (short form) - Note Progress Note: PULMONARY Somnolent but arousable. Mostly serous drainage from chest tube now. Vital Signs Period Temp Pulse Resp BP Sys/Singh Pulse Ox Last 24 Hr 98.2 F-98.9 F 88-98 18-20 129-156/66-77 95-96 Gen: somnolent but arousable Heart: RRR Lung: decreased breath sounds at the bases Abd: soft, nontender Ext: no edema CBC, BMP 12/01/18 06:00 12/01/18 06:00 Active Medications Acetaminophen (Tylenol -) 650 mg PO Q6H PRN PRN Reason: PAIN LEVEL 4 - 6 Last Admin: 12/01/18 11:58 Dose: 650 mg Lidocaine (Lidoderm Patch -) 1 patch TP DAILY [facility] Last Admin: 12/01/18 09:06 Dose: 1 patch Miscellaneous (Lidoderm Patch Removal) 1 each [facility] HS [facility] Last Admin: 11/30/18 21:47 Dose: Not Given Risperidone (Risperdal -) 0.25 mg PO Q12H PRN PRN Reason: AGITATION A/P Recent Fall Rib Fracture Pleural Effusion/Hemothorax s/p left chest tube placement Rheumatoid Arthritis on MTX Hyperlipidemia Dementia - monitor chest tube output - CXR in AM - if improved, can place on water seal - pain control - aspiration precautions - DVT prophylaxis
--- NOTE | 2018-12-01 13:48 | PN ---
Physical Exam: SUBJECTIVE: Patient seen and examined, does not participate in the interview. OBJECTIVE: Vital Signs Period Temp Pulse Resp BP Sys/Singh Pulse Ox Last 24 Hr 98.2 F-98.9 F 88-98 18-20 129-156/66-77 95-96 GENERAL: The patient is awake, alert, responds to name, no acute distress HEAD: Normal with no signs of trauma. EYES: PERRL, extraocular movements intact, sclera anicteric, conjunctiva clear. No ptosis. ENT: Ears normal, nares patent, oropharynx clear without exudates, moist mucous membranes. NECK: Trachea midline, full range of motion, supple. LUNGS:poor effort and lack of co-operation markedly limiting exam, better air entry right lung HEART: Regular rate and rhythm, S1, S2 ABDOMEN: Soft, nontender, nondistended, normoactive bowel sounds, no guarding, no rebound EXTREMITIES: 2+ pulses, warm, well-perfused, no edema. PSYCH: Normal mood, normal affect. SKIN: Warm, dry, normal turgor, no rashes or lesions noted Laboratory Results - last 24 hr 12/01/18 12/01/18 12/01/18 06:00 06:00 11:10 WBC 7.4 RBC 3.35 L Hgb 10.6 L Hct 31.5 L MCV 94.0 MCH 31.6 MCHC 33.6 RDW 12.6 Plt Count 373 MPV 9.2 Absolute Neuts (auto) 5.9 Neutrophils % 78.9 Lymphocytes % 10.0 Monocytes % 10.3 H Eosinophils % 0.4 Basophils % 0.4 Nucleated RBC % 0 Sodium 138 Potassium 4.4 Chloride 106 Carbon Dioxide 24 Anion Gap 8 BUN 12 Creatinine 0.5 L Creat Clearance w eGFR > 60 POC Glucometer 144 Random Glucose 127 H Calcium 8.0 L Active Medications Generic Name Dose Route Start Last Admin Trade Name Freq PRN Reason Stop Dose Admin Acetaminophen 650 mg 11/30/18 01:10 12/01/18 11:58 Tylenol - PO 650 mg Q6H PRN Administration PAIN LEVEL 4 - 6 Lidocaine 1 patch 11/30/18 10:00 12/01/18 09:06 Lidoderm Patch - TP 1 patch DAILY [facility] Administration Miscellaneous 1 each 11/30/18 22:00 11/30/18 21:47 Lidoderm Patch Removal MC Not Given HS [facility] Risperidone 0.25 mg 11/30/18 01:10 Risperdal - PO Q12H PRN AGITATION ASSESSMENT/PLAN: 82 yof with PMHx of dementia, HLD, Rheumatoid arthritis on Methotrexate, TIA, recent witnessed fall, admitted with moderate to large pleural effusion with almost LLL collapse -Moderate to large pleural effusion with almost LLL collapse, suspect harmorrhagic from recent fall/Left 10th rib fracture, r/o hemothorax, malignancy , low suspicion for infectious process -Acute hypoxic respiratory failure -Hyperkalemia, suspected hemolyzed sample -Recent witnessed fall -Dementia -HLD -Rheumatoid arthritis on weekly methotrexate -h/o TIA Plan: Oxygenating well. IR guided thoracentesis s/p 560 ml serosanguinous fluid. Pulmonary/thoracic surgery input noted. S/p pigtail placement. repeat CXR tomorrow, d/c tube in 24-48 hours per pulmonary Follow up pleural fluid studies/cytology. Clinical presentation not consistent with infectious process. h/h stable. Incentive spirometry if patient co-operates Risperidone hs and prn for agitation (patient receives it at home prn) Frequent orientation to environment. Hold methotrexate/ASA. DVTPPX SCDs for now PT eval noted. Code status: DNR/DNI Dispo in 1-2 days if chest tube removed and no concerns. Home with daughter/[facility]NS Vs SNF. Plan discussed with nursing, all questions answered. Visit type - Emergency Visit Emergency Visit: Yes ED Registration Date: 11/28/18 Care time: The patient presented to the Emergency Department on the above date and was hospitalized for further evaluation of their emergent condition. - New Patient This patient is new to me today: No - Critical Care Critical Care patient: No - Discharge Referral Referred to [facility] Med P.C.: No
[2018-12-01] MEDS: LIDOCAINE PATCH REMOVAL MC SCH (22:26)
[2018-12-02 07:46] LABS: HEMATOCRIT 33.3 % (32.4-45.2); HEMOGLOBIN 11.2 GM/dL (10.7-15.3); MCH 32.2 pg (25.7-33.7); MCHC 33.7 g/dl (32.0-36.0); MEAN CELL VOLUME 95.4 fl (80-96); MEAN PLT VOLUME 9.6 fl (7.5-11.1); PLATELET COUNT 365 K/MM3 (134-434); RBC 3.49 M/mm3 (3.60-5.2); RDW 12.5 % (11.6-15.6); WHITE BLOOD COUNT 8.8 K/mm3 (4.0-10.0)
[2018-12-02] MEDS: LIDOCAINE 5% TOPICAL PATCH TP SCH (09:14)
--- NOTE | 2018-12-02 10:46 | PN ---
Physical Exam: SUBJECTIVE: Patient seen and examined, responds to name, does not participate in the interview otherwise. OBJECTIVE: Vital Signs Period Temp Pulse Resp BP Sys/Singh Pulse Ox Last 24 Hr 97.8 F-99.6 F 78-98 18-20 115-145/56-99 95 GENERAL: The patient is awake, responds to name Chest: improved air entry left side, overall exam limited due to lack of effort and co-operation Abdomen:soft, NT, ND Extremities: no edema Neck: soft, supple, no JVD. Laboratory Results - last 24 hr 12/01/18 12/01/18 12/02/18 11:10 16:03 06:30 WBC 8.8 RBC 3.49 L Hgb 11.2 Hct 33.3 MCV 95.4 MCH 32.2 MCHC 33.7 RDW 12.5 Plt Count 365 MPV 9.6 POC Glucometer 144 171 Active Medications Generic Name Dose Route Start Last Admin Trade Name Freq PRN Reason Stop Dose Admin Acetaminophen 650 mg 11/30/18 01:10 12/01/18 11:58 Tylenol - PO 650 mg Q6H PRN Administration PAIN LEVEL 4 - 6 Lidocaine 1 patch 11/30/18 10:00 12/02/18 09:14 Lidoderm Patch - TP 1 patch DAILY [facility] Administration Miscellaneous 1 each 11/30/18 22:00 12/01/18 22:26 Lidoderm Patch Removal MC 1 each HS [facility] Administration Risperidone 0.25 mg 11/30/18 01:10 Risperdal - PO Q12H PRN AGITATION CXR this AM with improved left pleural effusion, left pigtail in place ASSESSMENT/PLAN: 82 yof with PMHx of dementia, HLD, Rheumatoid arthritis on Methotrexate, TIA, recent witnessed fall, admitted with moderate to large pleural effusion with almost LLL collapse -Moderate to large pleural effusion with almost LLL collapse, suspect harmorrhagic from recent fall/Left 10th rib fracture, r/o hemothorax, malignancy , low suspicion for infectious process -Acute hypoxic respiratory failure -Hyperkalemia, suspected hemolyzed sample -Recent witnessed fall -Dementia -HLD -Rheumatoid arthritis on weekly methotrexate -h/o TIA Plan: Oxygenating well. IR guided thoracentesis s/p 560 ml serosanguinous fluid. Pulmonary/thoracic surgery input noted. CXR this AM improved, minimal chest tube drainage. Discussed with Dr. Vegas, will place on water seal and d/c tube in AM if no concerns. Follow up pleural fluid studies/cytology, neg so far.. Clinical presentation not consistent with infectious process. h/h stable. Incentive spirometry if patient co-operates Risperidone hs and prn for agitation (patient receives it at home prn) Frequent orientation to environment. Hold methotrexate/ASA. Dysphagia pureed diet. DVTPPX SCDs for now PT eval noted. Code status: DNR/DNI Dispo dc in 24 hours if no concerns and chest tube removed. Home with daughter/VNS Vs SNF, CM aware, to address with family. Plan discussed with nursing, all questions answered. Visit type - Emergency Visit Emergency Visit: Yes ED Registration Date: 11/28/18 Care time: The patient presented to the Emergency Department on the above date and was hospitalized for further evaluation of their emergent condition. - New Patient This patient is new to me today: No - Critical Care Critical Care patient: No - Discharge Referral Referred to [facility] Med P.C.: No
--- NOTE | 2018-12-02 11:33 | PN ---
Progress Note (short form) - Note Progress Note: PULMONARY Minimal drainage from chest tube. Vital Signs Period Temp Pulse Resp BP Sys/Singh Pulse Ox Last 24 Hr 97.8 F-99.6 F 78-98 18-20 115-145/56-99 95 Gen: somnolent but arousable Heart: RRR Lung: decreased breath sounds at the bases Abd: soft, nontender Ext: no edema CBC, BMP 12/02/18 06:30 12/01/18 06:00 Active Medications Acetaminophen (Tylenol -) 650 mg PO Q6H PRN PRN Reason: PAIN LEVEL 4 - 6 Last Admin: 12/01/18 11:58 Dose: 650 mg Lidocaine (Lidoderm Patch -) 1 patch TP DAILY [facility] Last Admin: 12/02/18 09:14 Dose: 1 patch Miscellaneous (Lidoderm Patch Removal) 1 each [facility] Last Admin: 12/01/18 22:26 Dose: 1 each Risperidone (Risperdal -) 0.25 mg PO Q12H PRN PRN Reason: AGITATION A/P Recent Fall Rib Fracture Pleural Effusion/Hemothorax s/p left chest tube placement Rheumatoid Arthritis on MTX Hyperlipidemia Dementia - monitor chest tube output - placed chest tube to water seal - AM CXR, if no pneumothorax can clamp tube and repeat CXR in 2 hrs - if repeat CXR unchanged, can d/c chest tube - pain control - aspiration precautions - DVT prophylaxis
[2018-12-02] MEDS: LIDOCAINE PATCH REMOVAL MC SCH (21:16)
[2018-12-03] MEDS: LIDOCAINE 5% TOPICAL PATCH TP SCH (09:32)
--- NOTE | 2018-12-03 10:52 | PN ---
Progress Note (short form) - Note Progress Note: PULMONARY UNABLE TO PROVIDE HX PT HAS ALZ DEMENTIA FAMILY PRESENT/ CHEST TUBE CLAMPED/ WILL REPEAT CXR AFEBRILE/GRIMACING ANICTERIC DIMINISHED BREATH SOUNDS LEFT BASE UP 1/2 S1S2 BS+ NO EDEMA/SCD'S RADIOGRAPHS/CT/LABS/MEDS/NOTES REVIEWED (1) Pleural effusion Code(s): J90 - PLEURAL EFFUSION, NOT ELSEWHERE CLASSIFIED (2) Constipation Code(s): K59.00 - CONSTIPATION, UNSPECIFIED Qualifiers: Constipation type: unspecified constipation type Qualified Code(s): K59.00 - Constipation, unspecified (3) Rheumatoid arthritis Code(s): M06.9 - RHEUMATOID ARTHRITIS, UNSPECIFIED (4) Rib fracture Code(s): S22.39XA - FRACTURE OF ONE RIB, UNSP SIDE, INIT FOR CLOS FX Qualifiers: Encounter type: subsequent encounter Rib fracture type: single rib Fracture type: closed Laterality: unspecified laterality Fracture healing: with routine healing Qualified Code(s): S22.39XD - Fracture of one rib, unspecified side, subsequent encounter for fracture with routine healing (5) Dementia Code(s): F03.90 - UNSPECIFIED DEMENTIA WITHOUT BEHAVIORAL DISTURBANCE Qualifiers: Dementia type: unspecified type Dementia behavioral disturbance: without behavioral disturbance Qualified Code(s): F03.90 - Unspecified dementia without behavioral disturbance (6) HTN (hypertension) Code(s): I10 - ESSENTIAL (PRIMARY) HYPERTENSION (7) Hyperlipidemia Code(s): E78.5 - HYPERLIPIDEMIA, UNSPECIFIED (8) Osteoarthritis Code(s): M19.90 - UNSPECIFIED OSTEOARTHRITIS, UNSPECIFIED SITE (9) PVD (peripheral vascular disease) Code(s): I73.9 - PERIPHERAL VASCULAR DISEASE, UNSPECIFIED TRAUMATIC HEMOTHORAX DRAINED WITH TUBE T-SURG TO PULL TUBE R MONIK SCHULTZ
--- NOTE | 2018-12-03 11:49 | CONSULT ---
Consult Consult Specialty:: Thoracic Surgery Referred by:: Medicine Reason for Consultation:: Left pleural effusion - History of Present Illness Chief Complaint: Cough History of Present Illness: 82F with dementia p/w cough, phlegm, fever, after rib fractures from fall, pleural effusion on left. 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: Dementia Cardio/Vascular: Yes: Hyperlipdemia, Other (PVD) Rheumatology: Yes: Rheumatoid Arthritis - Alcohol/Substance Use Hx Alcohol Use: No History of Substance Use: reports: None - Smoking History Smoking history: Never smoked Have you smoked in the past 12 months: No Aproximately how many cigarettes per day: 0 - Social History ADL: Family Assistance History of Recent Travel: No Home Medications - Allergies Allergies/Adverse Reactions: Allergies Allergy/AdvReac Type Severity Reaction Status Date / Time No Known Drug Allergies Allergy Verified 11/28/18 12:32 shellfish derived AdvReac Mild Itching Verified 11/28/18 12:32 - Home Medications Home Medications: Ambulatory Orders Divalproex [Depakote -] 250 mg PO DAILY 11/09/18 Polyethylene Glycol 3350 [Miralax (For Bowel Prep) -] 17 gm PO DAILY #1 bottle 11/15/18 Sodium Phosphate,[place]-Dibasic [Fleet Enema] 133 ml RC DAILY PRN #3 enema Methotrexate [Mexate -] 15 mg PO Q7D 11/29/18 Family Disease History - Family Disease History Family Disease History: Other: Brother (dementia) Review of Systems - Review of Systems Constitutional: reports: Weakness Eyes: reports: No Symptoms HENT: reports: No Symptoms Neck: reports: No Symptoms Cardiovascular: reports: No Symptoms Physical Exam Vital Signs: Vital Signs Temperature 99 F 12/03/18 05:00 Pulse Rate 90 12/03/18 05:00 Respiratory Rate 18 12/03/18 07:52 Blood Pressure 123/57 L 12/03/18 05:00 O2 Sat by Pulse Oximetry (%) 95 12/03/18 07:52 Constitutional: Yes: Calm Eyes: Yes: WNL HENT: Yes: WNL Cardiovascular: Yes: WNL Respiratory: Yes: Poor Air Entry Extremities: Yes: WNL Labs: CBC, BMP 12/02/18 06:30 12/01/18 06:00 Imaging - Results Cat Scan: Image Reviewed Problem List - Problems (1) Pleural effusion Code(s): J90 - PLEURAL EFFUSION, NOT ELSEWHERE CLASSIFIED (2) Rib fracture Code(s): S22.39XA - FRACTURE OF ONE RIB, UNSP SIDE, INIT FOR CLOS FX Qualifiers: Encounter type: subsequent encounter Rib fracture type: single rib Fracture type: closed Laterality: unspecified laterality Fracture healing: with routine healing Qualified Code(s): S22.39XD - Fracture of one rib, unspecified side, subsequent encounter for fracture with routine healing (3) Dementia Code(s): F03.90 - UNSPECIFIED DEMENTIA WITHOUT BEHAVIORAL DISTURBANCE Qualifiers: Dementia type: unspecified type Dementia behavioral disturbance: without behavioral disturbance Qualified Code(s): F03.90 - Unspecified dementia without behavioral disturbance Assessment/Plan 82F with dementia, s/p fall rib fractures, cared for at home by daughter, had increased cough, fever, found to have left pleural effusion: -Tube placed, no longer draining, CXR much improved; -OK to remove; -Abx per medicine team. -Daily CXR while in hospital.
--- NOTE | 2018-12-03 12:15 | PN ---
Progress Note (short form) - Note Progress Note: 82yo F s/p Left pigtail placement for hemothorax, seen and examined at bedside. Pt at baseline with dementia. Last Vital Signs Temp Pulse Resp BP Pulse Ox 99 F 90 18 123/57 L 95 12/03/18 05:00 12/03/18 05:00 12/03/18 07:52 12/03/18 05:00 12/03/18 07:52 CBC, BMP 12/02/18 06:30 12/01/18 06:00 PE: Gen: a&O x3 Resp: breathing comfortably Chest: Lt chest tube present with no erythema or discharge, serosanguinous drainage. Problem List - Problems (1) Pleural effusion Assessment/Plan: Plan -chest x-ray looked good this AM with tube on waterseal, chest tube removed at bedside. -follow up cxr, if good pt is cleared from CT surg for discharge, please follow up with Dr. Wills in 2 weeks as outpatient Code(s): J90 - PLEURAL EFFUSION, NOT ELSEWHERE CLASSIFIED
--- NOTE | 2018-12-03 12:23 | PN ---
Teaching Attending Note Name of Resident: Prakash Jean ATTENDING PHYSICIAN STATEMENT I saw and evaluated the patient. I reviewed the resident's note and discussed the case with the resident. I agree with the resident's findings and plan as documented with exceptions below. SUBJECTIVE: Patient seen and examined, non co-operative to exam, non verbal currently, unable to do ROS. OBJECTIVE: Vital Signs Period Temp Pulse Resp BP Sys/Singh Pulse Ox Last 24 Hr 97.4 F-100.0 F 86-96 18-19 105-129/53-71 95-95 General: sitting in bed in no acute distress Chest; improved left sided air entry, chest tube on water seal Abdomen;Soft, NT Extremities: no edema Home Medications Medication Instructions Recorded Divalproex [Depakote -] 250 mg PO DAILY 11/09/18 Polyethylene Glycol 3350 [Miralax 17 gm PO DAILY #1 bottle 11/15/18 255 gm Btl -] Sodium Phosphate,[place]-Dibasic 133 ml RC DAILY PRN #3 enema 11/15/18 [Fleet Enema] Methotrexate [Mexate -] 15 mg PO Q7D 11/29/18 Risperidone 0.25 mg PO DAILY PRN 12/03/18 Laboratory Results - last 24 hr 12/02/18 16:51 POC Glucometer 160 CXR images and results reviewed ASSESSMENT AND PLAN: 82 yof with PMHx of dementia, HLD, Rheumatoid arthritis on Methotrexate, TIA, recent witnessed fall, admitted with moderate to large pleural effusion with almost LLL collapse -Moderate to large pleural effusion with almost LLL collapse, suspect harmorrhagic from recent fall/Left 10th rib fracture, r/o hemothorax, malignancy , low suspicion for infectious process -Acute hypoxic respiratory failure -Hyperkalemia, suspected hemolyzed sample -Recent witnessed fall -Dementia -HLD -Rheumatoid arthritis on weekly methotrexate -h/o TIA Plan: Oxygenating well. Discussed with Dr. Calixto, surgery. Chest tube removed. Home VNS to be arranged. resume home meds. D/c home with family today if follow up cxr with no concerns. Discussed with nursing.
--- NOTE | 2018-12-03 13:38 | PN ---
Progress Note, TILE MOLDER HAND - Note Progress Note: Selected Entries 12/02/18 12/02/18 12/02/18 02:20 06:00 10:00 Breakfast 50% Diet Tolerated Fair Lunch Supper Temperature 98.8 F 99.6 F 97.8 F 12/02/18 12/02/18 12/02/18 15:00 17:12 19:23 Breakfast Diet Tolerated Poor Fair Lunch 25% Supper 50% Temperature 97.4 F L 100.0 F H 12/03/18 12/03/18 12/03/18 01:00 05:00 10:48 Breakfast 75% Diet Tolerated Well Lunch Supper Temperature 100 F H 99 F Laboratory Tests 12/02/18 06:30 WBC 8.8 On puree/thin liquid.Tolerating diet and supplements.
[2018-12-03] MEDS ORDERED: DEXTROSE 5%-NORMAL SALINE 1,000 ML IV SCH (13:45)
--- NOTE | 2018-12-03 15:18 | PN ---
Physical Exam: SUBJECTIVE: Patient seen and examined sitting comfortably in bed no new complaints overnight. afebrile OBJECTIVE: Vital Signs Period Temp Pulse Resp BP Sys/Singh Pulse Ox Last 24 Hr 99 F-100.0 F 90-96 18-18 123-129/57-71 95-95 GENERAL: Awake, doesn't follow commands HEAD: Normal with no signs of trauma. EYES: Pupils equal, round and reactive to light, EARS, NOSE, THROAT: Moist mucous membranes. NECK: Normal range of motion, supple without lymphadenopathy, JVD, or masses. LUNGS: decrease breath sound on left side HEART: Regular rate and rhythm, normal S1 and S2 without murmur, ABDOMEN: Soft, nontender, not distended, normoactive bowel sounds, no guarding, no rebound, no masses. UPPER EXTREMITIES: 2+ pulses, warm, well-perfused. LOWER EXTREMITIES: warm, well-perfused. SKIN: Warm, Laboratory Results - last 24 hr 12/02/18 16:51 POC Glucometer 160 Active Medications Generic Name Dose Route Start Last Admin Trade Name Freq PRN Reason Stop Dose Admin Acetaminophen 650 mg 11/30/18 01:10 12/01/18 11:58 Tylenol - PO 650 mg Q6H PRN Administration PAIN LEVEL 4 - 6 Lidocaine 1 patch 11/30/18 10:00 12/03/18 09:32 Lidoderm Patch - TP 1 patch DAILY MELE Administration Miscellaneous 1 each 11/30/18 22:00 12/02/18 21:16 Lidoderm Patch Removal MC 1 each HS MELE Administration Risperidone 0.25 mg 11/30/18 01:10 Risperdal - PO Q12H PRN AGITATION ASSESSMENT/PLAN:Pt is a 82 yo F, with PMH of Alzheimer's ds, TIA, RA on methotrexate ( 2.5mg 6 tabs every ) came to hospital for cough and chest pain and found to have pleural effusion on left side. L side pleural effusion: likely secondary to 10th rib #, Less likely from infection, less likely malignent. NO h/o ca. No signs of infection. CT : left side effusion with collapse pain control with lidocaine patch and acetaminophen spirometry chest tube drainage 15cc 02 to keep spo2> 90 avoid aspirin and heparin pleural fluid studies pending. tube removed today- -- post removal cxr shows some pneumo. repeat cxr tomorrow Dementia: not on medication risperidone o.25mg hs for agitation and prn not on meds for htn/hld RA-- on methotrexate 15mg hold for now in home on depakote for hand tremors fluid : regular diet electrolyte: normal nutrition: start regular dvt pro scd both legs gi pro: not required dispo: med surg Visit type - Emergency Visit Emergency Visit: Yes ED Registration Date: 11/28/18 Care time: The patient presented to the Emergency Department on the above date and was hospitalized for further evaluation of their emergent condition. - New Patient This patient is new to me today: No - Critical Care Critical Care patient: No
[2018-12-03 16:17] LABS: BODY FLUID ALBUMIN 2.3 g/dL (.)
--- NOTE | 2018-12-03 17:03 | PATH ---
Cytology Non-Gynecological Report Patient Name: SOPHIA EDEN Med. Rec. #: [id number] /Age/Gender: 1935 (Age: 82) / F Account: [id number] Location: [facility] MED/SURG Taken: 11/29/2018 Received: 11/30/2018 Reported: 12/03/2018 Physicians: PHYSICIAN EMERGENCY DEPT Specimen(s) Received A: PLEURAL FLUID RECEIVED IN 50% ALCOHOL B: PLEURAL FLUID RECEIVED FRESH Clinical History Pleural effusion Final Diagnosis A & B. PLEURAL FLUID, THORACENTESIS: SATISFACTORY FOR EVALUATION. NO MALIGNANT CELLS IDENTIFIED. RARE MESOTHELIAL CELLS, FEW MACROPHAGES, MANY LYMPHOCYTES, AND SCATTERED NEUTROPHILS. Comment: Suggest clinical/radiologic correlation. Electronically Signed Carol Wills M.D. Gross Description A. Approximately 50 cc of yellow fluid received fixed in 50% alcohol. One cytofunnel prepared and Pap stained. One cellblock prepared. B. Approximately 1000 cc of yellow fluid received fresh. One cytofunnel prepared and Pap stained. One cellblock prepared.
[2018-12-03] MEDS: LIDOCAINE PATCH REMOVAL MC SCH (22:13)
[2018-12-04] MEDS: LIDOCAINE 5% TOPICAL PATCH TP SCH (09:22)
--- NOTE | 2018-12-04 09:25 | PN ---
Teaching Attending Note Name of Resident: Prakash Jean ATTENDING PHYSICIAN STATEMENT I saw and evaluated the patient. I reviewed the resident's note and discussed the case with the resident. I agree with the resident's findings and plan as documented with exceptions below. SUBJECTIVE: Patient seen and examined. No complaints, Not co-operative with interview or exam. OBJECTIVE: Vital Signs Period Temp Pulse Resp BP Sys/Singh Pulse Ox Last 24 Hr 97.7 F-98.9 F 87-94 18-20 108-124/52-72 95 Intake & Output 12/01/18 12/02/18 12/03/18 12/04/18 23:59 23:59 23:59 23:59 Intake Total 100 120 440 50 Output Total 22 10 15 Balance 78 110 425 50 Weight 94 lb 5 oz 96 lb 93 lb 1 oz General: sitting in bed in no acute distress Chest: improved air entry left lung base Extremities: no edema Home Medications Medication Instructions Recorded Divalproex [Depakote -] 250 mg PO DAILY 11/09/18 Polyethylene Glycol 3350 [Miralax 17 gm PO DAILY #1 bottle 11/15/18 255 gm Btl -] Sodium Phosphate,[place]-Dibasic 133 ml RC DAILY PRN #3 enema 11/15/18 [Fleet Enema] Methotrexate [Mexate -] 15 mg PO Q7D 11/29/18 Risperidone 0.25 mg PO DAILY PRN 12/03/18 Laboratory Results - last 24 hr 11/29/18 15:00 POC Fluid pH Cancelled Fluid Glucose 118 Fluid Total Protein 4.5 Fluid Albumin 2.3 Body Fluid LDH Source 497 Fluid Amylase 19 Fluid Triglycerides 35 CXr results and images from this AM reviewed ASSESSMENT AND PLAN: 82 yof with PMHx of dementia, HLD, Rheumatoid arthritis on Methotrexate, TIA, recent witnessed fall, admitted with moderate to large pleural effusion with almost LLL collapse -Moderate to large pleural effusion with almost LLL collapse, suspect harmorrhagic from recent fall/Left 10th rib fracture, r/o hemothorax, malignancy , low suspicion for infectious process -Small left base pneumonthorax -Acute hypoxic respiratory failure -Hyperkalemia, suspected hemolyzed sample -Recent witnessed fall -Dementia -HLD -Rheumatoid arthritis on weekly methotrexate -h/o TIA Plan: Oxygenating well. CXR this AM stable. Outpatient pulmonary follow up, follow up on pleural fluid studies. D/c home with a family and VNS. Plan discussed with nursing.
--- NOTE | 2018-12-04 09:42 | DS ---
Physical Exam: SUBJECTIVE: Patient seen and examined, non verbal, no co-operative with interview OBJECTIVE: Vital Signs Period Temp Pulse Resp BP Sys/Singh Pulse Ox Last 24 Hr 97.7 F-98.9 F 87-94 18-20 108-124/52-72 95 PHYSICAL EXAM GENERAL: The patient is awake, alert, occasionally responds to name HEAD: Normal with no signs of trauma. EYES: PERRL, extraocular movements intact, sclera anicteric, conjunctiva clear. ENT: Ears normal, nares patent, oropharynx clear without exudates, moist mucous membranes. NECK: soft, supple, no JVd LUNGS: lack of co-operation with exam, improved air entry left base, no rales or wheezing appreciated HEART: Regular rate and rhythm, S1, S2 ABDOMEN: Soft, nontender, nondistended, normoactive bowel sounds, no guarding, no rebound NEUROLOGICAL: awake, facial symmetry, moves all extremities, not co-operative with exam, gait not observed. PSYCH: Normal mood, normal affect. SKIN: Warm, dry, normal turgor, no rashes or lesions noted. LABS Laboratory Tests 11/28/18 11/28/18 11/28/18 13:40 13:40 14:47 WBC 9.9 RBC 3.51 L Hgb 11.4 Hct 33.7 MCV 96.1 H MCH 32.6 MCHC 33.9 RDW 12.4 Plt Count 324 D MPV 9.4 Absolute Neuts (auto) 8.0 Neutrophils % 81.2 Lymphocytes % 6.1 L D Monocytes % 11.5 H Eosinophils % 0.4 Basophils % 0.8 Nucleated RBC % 0 PT with INR INR PTT (Actin FS) VBG pH POC VBG pCO2 POC VBG pO2 Mixed VBG HCO3 Sodium 138 Potassium 5.4 H Chloride 104 Carbon Dioxide 28 Anion Gap 6 L BUN 15 Creatinine 0.6 Creat Clearance w eGFR > 60 POC Glucometer Random Glucose 112 H Calcium 8.5 Phosphorus Magnesium Total Bilirubin 0.6 AST 33 ALT 21 Alkaline Phosphatase 135 H LD Total Creatine Kinase 101 Troponin I < 0.02 Total Protein 6.7 Albumin 2.4 L Fluid Source POC Fluid pH Fluid WBC Fluid RBC Fluid Neutrophils Fluid Lymphocytes Fluid Glucose Fluid Total Protein Fluid Albumin Body Fluid LDH Source Fluid Amylase Fluid Triglycerides Pleural Eosinophils Pleural Macrophages Pleural Mesothelial Influenza A (Rapid) Negative Influenza B (Rapid) Negative Blood Type Antibody Screen 11/28/18 11/28/18 11/28/18 17:06 17:23 17:45 WBC RBC Hgb Hct MCV MCH MCHC RDW Plt Count MPV Absolute Neuts (auto) Neutrophils % Lymphocytes % Monocytes % Eosinophils % Basophils % Nucleated RBC % PT with INR 14.60 H INR 1.23 H PTT (Actin FS) VBG pH POC VBG pCO2 POC VBG pO2 Mixed VBG HCO3 Sodium Potassium 4.5 Chloride Carbon Dioxide Anion Gap BUN Creatinine Creat Clearance w eGFR POC Glucometer Random Glucose Calcium Phosphorus Magnesium Total Bilirubin AST ALT Alkaline Phosphatase LD Total Creatine Kinase Troponin I Total Protein Albumin Fluid Source POC Fluid pH Fluid WBC Fluid RBC Fluid Neutrophils Fluid Lymphocytes Fluid Glucose Fluid Total Protein Fluid Albumin Body Fluid LDH Source Fluid Amylase Fluid Triglycerides Pleural Eosinophils Pleural Macrophages Pleural Mesothelial Influenza A (Rapid) Influenza B (Rapid) Blood Type A POSITIVE Antibody Screen Negative 11/28/18 11/29/18 11/29/18 23:41 06:43 06:43 WBC 7.0 RBC 3.32 L Hgb 10.6 L Hct 31.7 L MCV 95.4 MCH 31.9 MCHC 33.4 RDW 12.2 Plt Count 319 MPV 9.9 Absolute Neuts (auto) 5.6 Neutrophils % 79.7 Lymphocytes % 8.0 D Monocytes % 10.9 H Eosinophils % 1.0 D Basophils % 0.4 Nucleated RBC % 0 PT with INR 15.00 H INR 1.27 H PTT (Actin FS) 29.7 VBG pH 7.46 H POC VBG pCO2 39.1 POC VBG pO2 46.9 D Mixed VBG HCO3 27.3 H Sodium Potassium Chloride Carbon Dioxide Anion Gap BUN Creatinine Creat Clearance w eGFR POC Glucometer Random Glucose Calcium Phosphorus Magnesium Total Bilirubin AST ALT Alkaline Phosphatase LD Total Creatine Kinase Troponin I Total Protein Albumin Fluid Source POC Fluid pH Fluid WBC Fluid RBC Fluid Neutrophils Fluid Lymphocytes Fluid Glucose Fluid Total Protein Fluid Albumin Body Fluid LDH Source Fluid Amylase Fluid Triglycerides Pleural Eosinophils Pleural Macrophages Pleural Mesothelial Influenza A (Rapid) Influenza B (Rapid) Blood Type Antibody Screen 11/29/18 11/29/18 11/29/18 06:43 15:00 15:00 WBC RBC Hgb Hct MCV MCH MCHC RDW Plt Count MPV Absolute Neuts (auto) Neutrophils % Lymphocytes % Monocytes % Eosinophils % Basophils % Nucleated RBC % PT with INR INR PTT (Actin FS) VBG pH POC VBG pCO2 POC VBG pO2 Mixed VBG HCO3 Sodium 139 Potassium 4.7 Chloride 105 Carbon Dioxide 29 Anion Gap 6 L BUN 12 Creatinine 0.4 L Creat Clearance w eGFR > 60 POC Glucometer Random Glucose 113 H Calcium 8.3 L Phosphorus 2.9 Magnesium 2.1 Total Bilirubin 0.4 AST 15 ALT 19 Alkaline Phosphatase 129 H LD Total 173 Creatine Kinase Troponin I Total Protein 6.0 L Albumin 2.2 L Fluid Source Left pleural POC Fluid pH Cancelled Fluid WBC 4,622 Fluid RBC 329,089 Fluid Neutrophils 27 Fluid Lymphocytes 32 Fluid Glucose 118 Fluid Total Protein 4.5 Fluid Albumin 2.3 Body Fluid LDH Source 497 Fluid Amylase 19 Fluid Triglycerides 35 Pleural Eosinophils 1 Pleural Macrophages 20 Pleural Mesothelial 20 Influenza A (Rapid) Influenza B (Rapid) Blood Type Antibody Screen 11/30/18 11/30/18 11/30/18 05:45 05:48 06:45 WBC 6.6 RBC 3.43 L Hgb 10.8 Hct 32.3 L MCV 94.1 MCH 31.6 MCHC 33.6 RDW 12.2 Plt Count 354 MPV 9.1 Absolute Neuts (auto) 5.0 Neutrophils % 77.0 Lymphocytes % 10.3 D Monocytes % 11.2 H Eosinophils % 0.9 Basophils % 0.6 Nucleated RBC % 0 PT with INR INR PTT (Actin FS) VBG pH POC VBG pCO2 POC VBG pO2 Mixed VBG HCO3 Sodium 137 Potassium 4.4 Chloride 105 Carbon Dioxide 28 Anion Gap 4 L BUN 11 Creatinine 0.5 L Creat Clearance w eGFR > 60 POC Glucometer 123 Random Glucose 116 H Calcium 8.3 L Phosphorus Magnesium Total Bilirubin AST ALT Alkaline Phosphatase LD Total Creatine Kinase Troponin I Total Protein Albumin Fluid Source POC Fluid pH Fluid WBC Fluid RBC Fluid Neutrophils Fluid Lymphocytes Fluid Glucose Fluid Total Protein Fluid Albumin Body Fluid LDH Source Fluid Amylase Fluid Triglycerides Pleural Eosinophils Pleural Macrophages Pleural Mesothelial Influenza A (Rapid) Influenza B (Rapid) Blood Type Antibody Screen 12/01/18 12/01/18 12/01/18 06:00 06:00 11:10 WBC 7.4 RBC 3.35 L Hgb 10.6 L Hct 31.5 L MCV 94.0 MCH 31.6 MCHC 33.6 RDW 12.6 Plt Count 373 MPV 9.2 Absolute Neuts (auto) 5.9 Neutrophils % 78.9 Lymphocytes % 10.0 Monocytes % 10.3 H Eosinophils % 0.4 Basophils % 0.4 Nucleated RBC % 0 PT with INR INR PTT (Actin FS) VBG pH POC VBG pCO2 POC VBG pO2 Mixed VBG HCO3 Sodium 138 Potassium 4.4 Chloride 106 Carbon Dioxide 24 Anion Gap 8 BUN 12 Creatinine 0.5 L Creat Clearance w eGFR > 60 POC Glucometer 144 Random Glucose 127 H Calcium 8.0 L Phosphorus Magnesium Total Bilirubin AST ALT Alkaline Phosphatase LD Total Creatine Kinase Troponin I Total Protein Albumin Fluid Source POC Fluid pH Fluid WBC Fluid RBC Fluid Neutrophils Fluid Lymphocytes Fluid Glucose Fluid Total Protein Fluid Albumin Body Fluid LDH Source Fluid Amylase Fluid Triglycerides Pleural Eosinophils Pleural Macrophages Pleural Mesothelial Influenza A (Rapid) Influenza B (Rapid) Blood Type Antibody Screen 12/01/18 12/02/18 12/02/18 16:03 06:30 16:51 WBC 8.8 RBC 3.49 L Hgb 11.2 Hct 33.3 MCV 95.4 MCH 32.2 MCHC 33.7 RDW 12.5 Plt Count 365 MPV 9.6 Absolute Neuts (auto) Neutrophils % Lymphocytes % Monocytes % Eosinophils % Basophils % Nucleated RBC % PT with INR INR PTT (Actin FS) VBG pH POC VBG pCO2 POC VBG pO2 Mixed VBG HCO3 Sodium Potassium Chloride Carbon Dioxide Anion Gap BUN Creatinine Creat Clearance w eGFR POC Glucometer 171 160 Random Glucose Calcium Phosphorus Magnesium Total Bilirubin AST ALT Alkaline Phosphatase LD Total Creatine Kinase Troponin I Total Protein Albumin Fluid Source POC Fluid pH Fluid WBC Fluid RBC Fluid Neutrophils Fluid Lymphocytes Fluid Glucose Fluid Total Protein Fluid Albumin Body Fluid LDH Source Fluid Amylase Fluid Triglycerides Pleural Eosinophils Pleural Macrophages Pleural Mesothelial Influenza A (Rapid) Influenza B (Rapid) Blood Type Antibody Screen Laboratory Results - last 24 hr 11/29/18 15:00 POC Fluid pH Cancelled Fluid Glucose 118 Fluid Total Protein 4.5 Fluid Albumin 2.3 Body Fluid LDH Source 497 Fluid Amylase [address] chest: CT scan of the chest without intravenous contrast Coronal and sagittal reconstruction images were obtained. Compared to prior chest x-ray dated [address] scan of the abdomen pelvis dated 2018 There are mild atelectatic changes in the dependent portion of the right lung base. The rest of the right lung appears unremarkable. There is a large left pleural effusion with fluid/masslike density seen within the fissure. There is collapse/ atelectasis of the left lower lobe and mild atelectatic changes in lingular segment of the left upper lobe. No pneumothorax is identified. Included lower lung appears unremarkable. The heart is within normal limits in size with a small pericardial effusion. No gross enlarged mediastinal or hilar lymph nodes are identified. There are calcified plaques in the aortic arch and descending thoracic aorta Included portion of the upper abdomen appears unremarkable. Visualized osseous structures appear intact with moderate degenerative disc disease and anterior spondylosis at L1-L2 level as well as mild degenerative changes and anterior spondylosis in the midthoracic spine Impression: Moderate to large left pleural effusion with consolidation and collapse of most of the left lower lobe. Underlying pathology cannot be ruled out or evaluated. Mild atelectatic changes in lingular segment of the left upper lobe. Reported By: Enrique Leonardo MD 11/28/18 [id number] left thoracocentesis: HISTORY: Shortness of breath with left-sided pleural effusion. Informed consent was obtained from the patient's daughter. Risks and benefits discussed including but not limited to bleeding, infection, pneumothorax. Signed consent was obtained after all questions were answered. The patient was placed in a sitting position. Limited ultrasound evaluation of the left chest reveals a moderate pleural effusion. Hardcopy image preserved in the patient's permanent record. Sterile technique was utilized. The skin was prepped with 2% chlorhexidine and a sterile sheet. The skin was then anesthetized with 1% lidocaine. A 5 English needle sheath combination was advanced into the pleural space under ultrasound guidance. Hardcopy image preserved in the patient's permanent record. Approximately 560 cc of serosanguineous fluid was drained. Samples were sent for culture, cytology and cell block. Postprocedure chest x- ray reveals no pneumothorax. The patient tolerated this procedure well. IMPRESSION: Ultrasound-guided left thoracentesis. HOSPITAL COURSE: Date of Admission:11/28/18 Date of Discharge: 12/04/18 Minutes to complete discharge: 40 Discharge Summary Reason For Visit: PLEURAL EFFUSION Current Active Problems Pleural effusion (Acute) Hospital Course: 82 yof with PMHx of dementia, HLD, Rheumatoid arthritis on Methotrexate, TIA was seen in ED on 11/08 after witnessed fall, sent home after negative reported CT head/C-spine and rib xray. Patient was seen in ED on 11/15 with constipation and left sided chest pain, s/p CT A/P showing pleural effusion with suspected left 10th rib fracture, sent home on lidocaine patch/Tylenol for pain control. Patient admitted with cough with yellowish sputum and left sided chest pain with cough, found hypoxic 88% on RA and large left pleural effusion with almost LLL lung collapse. Pulmonary was consulted. She received IR guided thoracentesis of 560 ml of serosanguinous fluid. Thoracic surgery was consulted, she received Chest tube insertion, her chest tube was removed in 48 hours. Her follow up CXR post chest tube removal. showed small left basilar pneumothorax, she was monitored for 24 hours with no new concerns. She was oxygenating well during her stay. Patient is suspected to have left hemothorax from 10th rib fracture from recent fall. Her pleural fluid cultures are negative so far. Pleural fluid cytology is pending which will need to be followed with pulmonary outpatient. She will be discharge home with family in stable condition with outpatient PCP and pulmonary follow up. Condition: Stable - Instructions Diet, Activity, Other Instructions: Follow up with your pcp with in one week. Follow up with Dr. Sneed to discuss your pending results of pleural fluid. ( final pleural fluid studies, culture and cytology). Please call on discharge to schedule follow up in 1 week. Do spirometry every hourly. Take all of your medicines as you were taking it before Do not take Motrin , Aleve, naproxen and other NSAIDs without discussion with your doctor. Take Tylenol for pain. Discuss with your PCP and water jet operator when can you start taking your aspirin. Also ask your pcp or water jet operator to repeat your chest X ray after one week. Visiting nurse will be arranged by social worker delinquency prevention If you develop chest pain, sob, nausea, vomiting, shortness of breath or any other new symptoms then contact doctor or go to hospital. Referrals: Ruperto Sneed MD [Staff Physician] - 1 Week Dora Manjarrez MD [Primary Care Provider] - Disposition: VNS/HOME HEALTH CARE - Home Medications Comprehensive Discharge Medication List: Ambulatory Orders Divalproex [Depakote -] 250 mg PO DAILY 11/09/18 Polyethylene Glycol 3350 [Miralax 255 gm Btl -] 17 gm PO DAILY #1 bottle Sodium Phosphate,Coosa-Dibasic [Fleet Enema] 133 ml RC DAILY PRN #3 enema Methotrexate [Mexate -] 15 mg PO Q7D 02/14/19 Risperidone 0.25 mg PO DAILY PRN 12/03/18 This patient is new to me today: No Emergency Visit: Yes ED Registration Date: 11/28/18 Care time: The patient presented to the Emergency Department on the above date and was hospitalized for further evaluation of their emergent condition. Critical Care patient: No - Discharge Referral Referred to [facility] Med [facility] No
[2018-12-04 12:36] VITALS: BMI 17.5
[2018-12-04] MEDS: LIDOCAINE PATCH REMOVAL MC SCH (21:52)
[2018-12-05] MEDS: LIDOCAINE 5% TOPICAL PATCH TP SCH (10:19)
--- NOTE | 2018-12-05 11:36 | PN ---
Physical Exam: SUBJECTIVE: Patient seen and examined no new course overnight OBJECTIVE: Vital Signs Period Temp Pulse Resp BP Sys/Singh Pulse Ox Last 24 Hr 97.8 F-99.2 F 78-86 18-20 100-128/59-82 95 GENERAL: Awake, doesn't follow commands HEAD: Normal with no signs of trauma. EYES: Pupils equal, round and reactive to light, EARS, NOSE, THROAT: Moist mucous membranes. NECK: Normal range of motion, supple without lymphadenopathy, JVD, or masses. LUNGS: b/l air entry present ABDOMEN: Soft, nontender, not distended, normoactive bowel sounds, no guarding, no rebound, no masses. UPPER EXTREMITIES: 2+ pulses, warm, well-perfused. LOWER EXTREMITIES: warm, well-perfused. SKIN: Warm, Active Medications Generic Name Dose Route Start Last Admin Trade Name Freq PRN Reason Stop Dose Admin Acetaminophen 650 mg 11/30/18 01:10 12/01/18 11:58 Tylenol - PO 650 mg Q6H PRN Administration PAIN LEVEL 4 - 6 Lidocaine 1 patch 11/30/18 10:00 12/05/18 10:19 Lidoderm Patch - TP 1 patch DAILY MELE Administration Miscellaneous 1 each 11/30/18 22:00 12/04/18 21:52 Lidoderm Patch Removal MC Not Given HS MELE Risperidone 0.25 mg 11/30/18 01:10 Risperdal - PO Q12H PRN AGITATION ASSESSMENT/PLAN: Pt is a 82 yo F, with PMH of Alzheimer's ds, TIA, RA on methotrexate ( 2.5mg 6 tabs every ) came to hospital for cough and chest pain and found to have pleural effusion on left side. L side pleural effusion: likely secondary to 10th rib #, Less likely from infection, less likely malignent. NO h/o ca. No signs of infection. xray improved breating comfortably continue spirometry waiting to de transfer to [facility] Dementia: not on medication risperidone o.25mg hs for agitation and prn not on meds for htn/hld RA-- on methotrexate 15mg hold for now in home on depakote for hand tremors fluid : regular diet electrolyte: normal nutrition: start regular dvt pro scd both legs gi pro: not required dispo: med surg
--- NOTE | 2018-12-05 12:14 | PN ---
Progress Note (short form) - Note Progress Note: Appears overall better. Breathing is non-labored. Afebrile. No acute events overnight. Intake & Output 12/02/18 12/03/18 12/04/18 12/05/18 23:59 23:59 23:59 23:59 Intake Total 120 440 100 Output Total 10 15 Balance 110 425 100 Weight 94 lb 5 oz 96 lb 93 lb 1 oz Last Vital Signs Temp Pulse Resp BP Pulse Ox 97.9 F 86 20 128/82 95 12/05/18 09:25 12/05/18 09:25 12/05/18 09:25 12/05/18 09:25 12/04/18 21:00 Active Medications Acetaminophen (Tylenol -) 650 mg PO Q6H PRN PRN Reason: PAIN LEVEL 4 - 6 Last Admin: 12/01/18 11:58 Dose: 650 mg Lidocaine (Lidoderm Patch -) 1 patch TP DAILY [facility] Last Admin: 12/05/18 10:19 Dose: 1 patch Miscellaneous (Lidoderm Patch Removal) 1 each [facility] Last Admin: 12/04/18 21:52 Dose: Not Given Risperidone (Risperdal -) 0.25 mg PO Q12H PRN PRN Reason: AGITATION Gen: somnolent, NAD Heart: RRR Lung: decreased breath sounds at the bases, few scattered rhonchi Abd: soft, nontender Ext: no edema A/P Recent Fall Rib Fracture Pleural Effusion/Hemothorax s/p left chest tube placement Rheumatoid Arthritis on MTX Hyperlipidemia Dementia - No need for further imaging - Incentive Spirometry - aspiration precautions - DVT prophylaxis - No Pulmonary contraindication for D/C to SNF Dr Rangel Problem List - Problems (1) Pleural effusion Code(s): J90 - PLEURAL EFFUSION, NOT ELSEWHERE CLASSIFIED (2) Constipation Code(s): K59.00 - CONSTIPATION, UNSPECIFIED Qualifiers: Constipation type: unspecified constipation type Qualified Code(s): K59.00 - Constipation, unspecified (3) Rheumatoid arthritis Code(s): M06.9 - RHEUMATOID ARTHRITIS, UNSPECIFIED (4) Rib fracture Code(s): S22.39XA - FRACTURE OF ONE RIB, UNSP SIDE, INIT FOR CLOS FX Qualifiers: Encounter type: subsequent encounter Rib fracture type: single rib Fracture type: closed Laterality: unspecified laterality Fracture healing: with routine healing Qualified Code(s): S22.39XD - Fracture of one rib, unspecified side, subsequent encounter for fracture with routine healing (5) Dementia Code(s): F03.90 - UNSPECIFIED DEMENTIA WITHOUT BEHAVIORAL DISTURBANCE Qualifiers: Dementia type: unspecified type Dementia behavioral disturbance: without behavioral disturbance Qualified Code(s): F03.90 - Unspecified dementia without behavioral disturbance (6) HTN (hypertension) Code(s): I10 - ESSENTIAL (PRIMARY) HYPERTENSION (7) Hyperlipidemia Code(s): E78.5 - HYPERLIPIDEMIA, UNSPECIFIED (8) Osteoarthritis Code(s): M19.90 - UNSPECIFIED OSTEOARTHRITIS, UNSPECIFIED SITE (9) PVD (peripheral vascular disease) Code(s): I73.9 - PERIPHERAL VASCULAR DISEASE, UNSPECIFIED
[2018-12-05 14:13] VITALS: BP 120/63; PULSE 88; TEMP 98.3
--- NOTE | 2018-12-05 15:18 | PN ---
Teaching Attending Note Name of Resident: Prakash Jean ATTENDING PHYSICIAN STATEMENT I saw and evaluated the patient. I reviewed the resident's note and discussed the case with the resident. I agree with the resident's findings and plan as documented. SUBJECTIVE: unable to obtain OBJECTIVE: Last Vital Signs Temp Pulse Resp BP Pulse Ox 36.8 C 88 18 120/63 95 12/05/18 14:11 12/05/18 14:11 12/05/18 14:11 12/05/18 14:11 12/04/18 21:00 Gen: nad Pulm: ctab w/o w/r/r CV: rrr w/o m/r/g Abd: +bs, s/nt/nd Ext: no c/c/e CBC, BMP 12/02/18 06:30 12/01/18 06:00 ASSESSMENT AND PLAN: -patient stable for discharge to SNF today Problem List - Problems (1) Pleural effusion Code(s): J90 - PLEURAL EFFUSION, NOT ELSEWHERE CLASSIFIED (2) Rheumatoid arthritis Code(s): M06.9 - RHEUMATOID ARTHRITIS, UNSPECIFIED (3) Rib fracture Code(s): S22.39XA - FRACTURE OF ONE RIB, UNSP SIDE, INIT FOR CLOS FX Qualifiers: Encounter type: subsequent encounter Rib fracture type: single rib Fracture type: closed Laterality: unspecified laterality Fracture healing: with routine healing Qualified Code(s): S22.39XD - Fracture of one rib, unspecified side, subsequent encounter for fracture with routine healing (4) Dementia Code(s): F03.90 - UNSPECIFIED DEMENTIA WITHOUT BEHAVIORAL DISTURBANCE Qualifiers: Dementia type: unspecified type Dementia behavioral disturbance: without behavioral disturbance Qualified Code(s): F03.90 - Unspecified dementia without behavioral disturbance (5) HTN (hypertension) Code(s): I10 - ESSENTIAL (PRIMARY) HYPERTENSION (6) Hyperlipidemia Code(s): E78.5 - HYPERLIPIDEMIA, UNSPECIFIED
== END 2018-12-05 15:13 | DRG 186 ==
LOC: JER 12:02 → JERBED 17:36 → J8W 11-29 21:23
PROVIDERS: ADMIT Hospitalist; ATTEND Hospitalist
PROC: 0W9B3ZX Drainage of Left Pleural Cavity, Percutaneous Approach, Diagnostic (ICD-10-PCS; principal; 2018-11-29)
DX: J94.2 Hemothorax (principal); J96.01 Acute respiratory failure with hypoxia; J98.19 Other pulmonary collapse; J90 Pleural effusion, not elsewhere classified; G30.9 Alzheimer's disease, unspecified; S22.39XD Fracture of one rib, unspecified side, subsequent encounter for fracture with routine healing; M06.9 Rheumatoid arthritis, unspecified; I10 Essential (primary) hypertension; E78.5 Hyperlipidemia, unspecified; E87.5 Hyperkalemia; K59.00 Constipation, unspecified; F02.80 Dementia in other diseases classified elsewhere, unspecified severity, without behavioral disturbance, psychotic disturbance, mood disturbance, and anxiety
CPT/HCPCS: 36415; 71045-TC-FY; 71250-TC; 76942; 80048; 80053; 82042; 82150; 82550; 82803; 82945; 82962; 83615; 83735; 84100; 84132; 84157; 84478; 84484; 85025; 85027; 85610; 85730; 86850; 86900; 86901; 87070; 87075; 87102; 87116; 87205; 87206; 87210; 87804; 88108; 88305-TC; 93005; 93010; 94761; 97116-GP; 97161-GP; 99285-25; J0131